=== PATIENT | female | born 1945 | race Caucasian/White ===

== ENCOUNTER 2017-03-20 19:28 | Inpatient (IN) | payer OTHER ==
[~2017-03-20] VITALS: Ht 165.1 cm; Wt 89.8 kg
[~2017-03-20 19:28] MED LIST: ASPIR 8181 MG PO; ASPIRIN EC81 M1 PO; AUGMENTIN 875-1 EACH PO; CLARITIN10 M1 PO; CLOPIDOGREL75 M1 PO; CLOPIDOGREL75 MG PO; DILTIAZEM 24HR120 MG PO; FERROUS SULFAT324 M1 PO; HUMALOG 100U100 U/ML; LANTUS SOLOS100 U/ML SC; LEVAQUIN500 M1 PO; LEVEMIR FL100 UNIT/1 SC; LISINOPRIL20 M1 PO; MAGNESIUM OXID400 MG PO; METOPROLOL SUCC50 MG PO; NATURE'S BLEND F1 MG PO; NOVOLOG FL100 UNIT/1 SC; PRAVASTATIN SOD80 MG PO; SERTRALINE HCL100 MG PO; SERTRALINE HYD100 MG PO; VENTOLIN HFA18 GM INH; VITAMIN B12500 MCG PO; VITAMIN D250000 UNIT PO; VITAMIN D50000 IU PO; XANAX0.5 M1 PO
--- NOTE | 2017-03-20 19:37 | ED NEURO DEFICIT/STROKE ---
History of Present Illness General Chief Complaint: Neuro Symptoms/ Deficit Stated Complaint: SLURRED SPEACHED Source: patient, old records, friend Exam Limitations: no limitations Allergies Coded Allergies: cat dander (DYSPNEA 11/12/16) crab (HIVES 10/24/16) Reconcile Medications Albuterol Sulfate (Ventolin Hfa) 90 MCG HFA.AER.AD 2 PUF INH Q4-6 PRN PRN dyspnea Alprazolam (Xanax) 0.5 MG TABLET 1 TAB PO BIDP PRN SHORTNESS OF BREATH Aspirin (Ecotrin*) 81 MG TABLET.DR 1 TAB PO DAILY HEART/BLOOD (Reported) Clopidogrel Bisulfate (Clopidogrel) 75 MG TABLET 1 TAB PO DAILY BLOOD THINNER (Reported) Diltiazem HCl (Diltiazem 24HR ER) 120 MG CAP.ER.24H 1 CAP PO DAILY HEART/BP ( Reported) Ergocalciferol (Vitamin D2) (Vitamin D2) 50,000 UNIT CAPSULE 1 CAP PO Q30D SUPPLEMENT (Reported) Insulin Aspart, Recombinant (Novolog Flexpen) 100 UNIT/ML INSULN.PEN DM ( Reported) Insulin Detemir (Levemir Flextouch) 100 UNIT/ML (3 ML) INSULN.PEN 40 UNITS SC QHS DM (Reported) Lisinopril 20 MG TABLET 1 TAB PO DAILY BP (Reported) Loratadine (Claritin) 10 MG TABLET 1 TAB PO DAILY ALLERGIES Sertraline HCl 100 MG TABLET 1 TAB PO DAILY MENTAL HEALTH (Reported) Triage Nurses Notes Reviewed? yes Onset: Abrupt Duration: day(s): (1), constant Timing: recent history Severity: moderate Vision Problem? No Glaucoma? No Baseline: alert, oriented x 3 Associated Symptoms: denies HPI: 71 year old female with history of Coronary artery disease, hypertension, hyperlipidemia, two strokes in 2009 and 2011 with no residual weakness, type 2 diabetes mellitus, depression, and migraines with benign point with all her medications for the past month secondary to monetary reasons presents with her friend who states since 10:00 this morning she has had slurred speech and is been acting confused lethargic. On arrival patient's blood sugar is 508. The patient offers no complaints she denies any arm or leg weakness no facial droop headache vision changes chest pain shortness of breath abdominal pain nausea vomiting diarrhea. (Rex TONEY,Bebeto) Vital Signs & Intake/Output Vital Signs & Intake/Output Vital Signs Date Time Temp Pulse Resp B/P B/P Pulse O2 O2 Flow FiO2 Mean Ox Delivery Rate 03/20 2211 96.8 79 18 133/62 98 Room Air 03/20 2105 74 139/69 03/20 2030 74 142/67 03/20 2011 76 191/96 03/20 1939 95.2 84 20 191/96 95 Room Air ED Intake and Output 03/21 0000 03/20 1200 Intake Total Output Total Balance Patient 195 lb Weight Weight Reported by Patient Measurement Method (Eda MOSLEY,Vijay Ayers) Past History Medical History Any Pertinent Medical History? see below for history Neurological: CVA Cardiovascular: hyperlipidemia Endocrine: diabetes History of MRSA: No History of VRE: No History of CDIFF: No Tetanus Vaccine: 02/12/15 Surgical History Surgical History: non-contributory Psychosocial History Who do you live with Spouse Services at Home None What is your primary language Khmer Family History Family History, If Any: SISTER FHx: diabetes mellitus BROTHER FH: heart disease Relation not specified for: Adopted Hx Contributory? No (Bebeto Berkowitz) Review of Systems Review of Systems Constitutional: Reports: see HPI. Comments Review of systems: See HPI, All other systems negative. Constitutional, no chills no fever, HEENT: no sore throat no congestion Cardiovascular: No chest pain , Skin: no rashes, no change in skin Respiratory: No dyspnea no cough GI: No nausea no vomiting, no diarrhea : No dysuria Muscle skeletal: No joint pain, no back pain Neurologic: , no headache Heme/endocrine: No bruising Immunology: No lymphadenopathy (Bebeto Berkowitz) Physical Exam Physical Exam General Appearance: well developed/nourished, alert, awake Cranial Nerves: normal hearing, normal speech, PERRL Comments: Well-developed well-nourished person in no acute distress HEENT: Normal EENT exam; PERRL, EOMI, no nystagmus. HEAD is atraumatic. moist mucous membranes. Neck: Supple, normal range of motion Back: Full range of motion Cardiovascular: Regular rate and rhythms no murmurs rubs Respiratory: Chest nontender.There were no bony deformities, no asymmetry. No respiratory distress. Patient speaking in full complete sentences. Breath sounds clear to auscultation bilaterally: NO W/R/R Abdomen: Soft, nontender nondistended, no appreciable organomegaly. Normal bowel sounds. No rebound/guarding, Extremity: No edema, full range of motion of extremities Neuro: Alert oriented x3, motor sensory normal, cranial nerves II through XII grossly intact. There were no obvious focal neurologic abnormalities. Skin: No appreciable rash on exposed skin, skin is warm and dry. Psych: Mood and affect is normal, memory and judgment is normal. Core Measures CVA/TIA Diagnosis: No Sepsis Present: No Sepsis Focused Exam Completed? No (Rex TONEY,Bebeto) Progress Differential Diagnosis: electrolyte imbalance, intracranial Hem., intracranial mass/tumor, stroke, subarachnoid Hem., vertebrobasilar insuff., hhs, dka, jay, dehydration Diagnostic Imaging: Viewed by Me: Radiology Read, CT Scan. Discussed w/RAD: Radiology Read, CT Scan. Radiology Impression: PATIENT: JOSE BROWN PRESENT AGE: 71 PATIENT ACCOUNT NO: [id number] : 46 LOCATION: [facility] ORDERING PHYSICIAN: Bebeto TONEY SERVICE DATE: 03/20/17 EXAM TYPE: RAD - XRY- PORTABLE CHEST XRAY EXAMINATION: XR PORTABLE CHEST CLINICAL INFORMATION: Altered mental status slurred speech. COMPARISON: Chest October 2016 TECHNIQUE: Portable frontal view of the chest was obtained. FINDINGS: No significant abnormality is noted involving the heart, lungs, mediastinum, bony thorax or soft tissues. IMPRESSION: Unremarkable examination. DICTATED BY: Bryan Barnett MD DATE/TIME DICTATED:03/20/172022 [employer]ATE [employer] PROGRAM COORDINATOR:PAVEL DATE/TIME TRANSCRIBED:03/20/172022 CONFIDENTIAL, DO NOT COPY WITHOUT APPROPRIATE AUTHORIZATION. <Electronically signed in Other Vendor System> SIGNED BY: Bryan Barnett MD 03/20/172026, PATIENT: JOSE BROWN PRESENT AGE: 71 PATIENT ACCOUNT NO: [id number] : 46 LOCATION: ER ORDERING PHYSICIAN: Bebeto TONEY SERVICE DATE: 03/20/17 EXAM TYPE: CAT - CT HEAD WO IV CONTRAST EXAMINATION: CT HEAD WITHOUT CONTRAST CLINICAL INFORMATION: Slurred speech. Rule out intracranial hemorrhage. COMPARISON: CT head 02/12/2015. TECHNIQUE: Contiguous axial imaging was performed from the skull base to vertex without intravenous administration of contrast. DLP: 616 mGy-cm FINDINGS: Moderate diffuse commensurate prominence of ventricles and sulci is noted. Moderate supratentorial patchy periventricular and subcortical white matter hypodensities are visualized. Moderate patchy hypodensity is present in the ventral monico. Focal patchy hypodensity is present in the posterior limb of left internal capsule and posterior left lentiform nucleus. Overall, these regions are most suspicious for chronic small vessel ischemic changes. No intracranial hemorrhage, acute infarcts or tumors are visualized. Segmental vascular calcifications of the cavernous portions of the internal carotid arteries are visualized. Bilateral ocular lens extractions are noted. No significant opacification of the visualized paranasal sinuses, mastoid air cells or middle ear cavities is demonstrated. IMPRESSION: 1. No acute abnormalities identified. No intracranial hemorrhage. 2. Moderate-marked white matter chronic small vessel ischemic changes grossly stable compared with 02/04/2015. DICTATED BY: Óscar Acharya MD DATE/TIME DICTATED:03/20/172033 [employer]PORATE [employer] PROGRAM COORDINATOR: PAVEL DATE/TIME TRANSCRIBED:03/20/172033 CONFIDENTIAL, DO NOT COPY WITHOUT APPROPRIATE AUTHORIZATION. <Electronically signed in Other Vendor System> SIGNED BY: Óscar Acharya MD 03/20/172039 Initial ED EKG: nsr at 80, lad, no acute st seg chagnes, normal axis Prior EKG: unchanged (10/2016) (Bebeto Berkowitz) Plan of Care: Orders Procedure Date/time Status Nothing by Mouth 03/21 B Active TROPONIN LEVEL 03/21 1000 Active EKG 03/21 1000 Active MAGNESIUM 03/21 0600 Active BASIC ELECTROLYTES PLUS BUN&CR 03/21 0600 Active CBC WITHOUT DIFFERENTIAL 03/21 0500 Active TROPONIN LEVEL 03/21 0300 Active EKG 03/21 0300 Active SWALLOW EVALUATION 03/21 0019 Active PT Evaluate & Treat 03/21 18 Active Saline Lock 03/21 18 Active Pathway - chart 03/21 18 Active House Staff 03/21 18 Active BLOOD CULTURE 03/21 18 Active Code Status 03/21 18 Active Pathway - chart 03/21 UNK Active Lab Add-on Test 03/21 UNK Active VTE Mechanical Prophylaxis 03/21 UNK Active Vital Signs 03/21 UNK Active Precautions 03/21 UNK Active Intake & Output 03/21 UNK Active Hemoccult 03/21 UNK Active FingerStick- Glucose 03/21 UNK Active Activity/Ambulation 03/21 UNK Active MRI-HEAD W/O MAYLIN 03/21 UNK Active Patient Data 03/20 2350 Active BASIC ELECTROLYTES PLUS BUN&CR 03/20 2315 Complete Patient Data 03/20 2229 Active Admit to inpatient 03/20 2228 Active Add-on Test (ER Only) 03/20 2202 Active SERUM OSMOLALITY 03/20 2000 Complete [place] Coma Scale 03/20 1941 Active NIH Stroke Scale 03/20 194 Active Intake & Output 03/20 194 Active FingerStick- Glucose 03/20 1940 Active MIXED VENOUS BLOOD GAS (GEN) 03/20 1937 Active Telemetry/Factorer 03/20 1937 Active TROPONIN LEVEL 03/20 1937 Complete PROTHROMBIN TIME 03/20 1937 Complete LACTIC ACID 03/20 1937 Complete COMPREHENSIVE METABOLIC PANEL 03/20 1937 Complete CBC WITHOUT DIFFERENTIAL 03/20 1937 Complete ACETONE 03/20 1937 Complete EKG 03/20 1937 Active Current Medications Sig/Huy Start time Last Medication Dose Stop Time Status Admin Acetaminophen 650 MG Q8P PRN 03/21 0030 UNVr (Tylenol) Oxycodone HCl 5 MG Q8P PRN 03/21 0030 AC (Roxicodone) Potassium Chloride 20 MEQ DAILY 03/20 2359 AC (KCl 20MEQ in D5W 1/ 2NS 1000ML) Dextrose/Sodium 1,000 ML Chloride (D5W-1/2 Normal Saline 1000ML) Atorvastatin Calcium 80 MG 1700 03/20 2345 UNVr (Lipitor) Insulin Aspart 0 Q4 03/20 2345 AC (NovoLOG) Insulin Detemir 5 UNITS BID 03/20 2345 AC (Levemir) Laboratory Tests 03/20/172319: Anion Gap 14, Estimated GFR 55 L, BUN/Creatinine Ratio 20.0 03/20/172237: Lactic Acid Cancelled 03/20/172000: Anion Gap 18 H, Estimated GFR 40 L, BUN/Creatinine Ratio 17.7, Glucose 484 H, Serum Osmolality 301 H, Lactic Acid 1.7, Calcium 9.2, Total Bilirubin 0.7, AST 13 L, ALT 28, Alkaline Phosphatase 88, Troponin I 0.10, Total Protein 7.3, Albumin 4.3, Globulin 3.0, Albumin/Globulin Ratio 1.4, PT 10.7, INR 1.02, CBC w Diff NO MAN DIFF REQ, RBC 4.54, MCV 82.8, MCH 27.8, MCHC 33.6, RDW 14.2, MPV 9.6 , Gran % 70.5, Lymphocytes % 21.8, Monocytes % 6.0, Eosinophils % 1.2, Basophils % 0.5, Absolute Granulocytes 5.5, Absolute Lymphocytes 1.7, Absolute Monocytes 0.5, Absolute Eosinophils 0.1, Absolute Basophils 0, Acetone Level POSITIVE AT 1 :2 DIL Microbiology 03/21 18 BLOOD: Blood Culture - ORD 03/21 18 BLOOD: Blood Culture - ORD 2199 was altered and she is hyperosmolar he advised to admit the patient to the ICU and started a insulin drip despite her blood sugar being 378 on repeat eval. Case discussed with Dr. Marquez spoke with Dr. Francis given the patient is (Bebeto Berkowitz) (Ead MOSLEY,Vijay Ayers) Departure Departure Time of Disposition: 2227 Disposition: STILL A PATIENT Condition: Stable Clinical Impression Primary Impression: Uncontrolled diabetes mellitus Secondary Impressions: Noncompliance with medication regimen Referrals: Lyudmila Butts (PCP/Family) Departure Forms: Customer Survey General Discharge Information Admission Note Spoke With: Amanda Martell MD Documentation of Exam: Documentation of any treatments & extenuating circumstances including Concerns Regarding Discharge (functional status, medication knowledge or non-compliance, living conditions, etc.) that warrant an admission rather than observation: ENDOCRINE CONSULT, POSSIBLE NEURO CONSULT, TREND LABS, TREND BLOOD SUGARS, TELE MONITORING, PREMATURE DISCHARGE WOULD BE MEDICALLY HARMFUL (Bebeto Berkowitz) PA/APPRENTICE Co-Sign Statement Statement: ED Attending supervision documentation- [X] I saw and evaluated the patient. I have also reviewed all the pertinent lab results and diagnostic results. I agree with the findings and the plan of care as documented in the PA's/APPRENTICE's documentation. Patient presents for evaluation of slurred speech, past history of CVA. Physical examination reveals no focal neurological deficits mildly slurred speech. No apparent aphasia. [] I have reviewed the ED Record and agree with the PA's/APPRENTICE's documentation. [] Additions or exceptions (if any) to the PAs/APPRENTICE's note and plan are summarized below: [] (Eda MOSLEY,Vijay Ayers) Critical Care Note Critical Care Note Critical Care Time: 30-74 min (Bebeto Berkowitz)
[2017-03-20 20:20] LABS: ABSOLUTE BASOPHIL COUNT 0 /CUMM (0.0-0.2); ABSOLUTE EOSINOPHIL COUNT 0.1 /CUMM (0.0-0.7); ABSOLUTE GRANULOCYTE CT 5.5 /CUMM (1.4-6.5); ABSOLUTE LYMPH COUNT 1.7 /CUMM (1.2-3.4); ABSOLUTE MONOCYTE COUNT 0.5 /CUMM (0.10-0.60); BASOPHIL % 0.5 % (0.0-2.0); EOSINOPHIL % 1.2 % (0-5); GRANULOCYTE % 70.5 % (42.2-75.2); HEMATOCRIT 37.6 % (37-47); MEAN CORPUSCULAR HGB 27.8 PG (27.0-31.0); MEAN CORPUSCULAR HGB CONC 33.6 G/DL (33.0-37.0); MEAN CORPUSCULAR VOLUME 82.8 FL (81.0-99.0); MEAN PLATELET VOLUME 9.6 FL (7.4-10.4); PLATELET COUNT 223 /CUMM (130-400); RBC DISTRIBUTION WIDTH 14.2 % (11.5-14.5); RED BLOOD CELL CT 4.54 /CUMM (4.20-5.40); WHITE BLOOD CELL COUNT 7.8 /CUMM (4.8-10.8)
--- NOTE | 2017-03-20 20:27 | RADIOLOGY REPORT ---
EXAMINATION: XR PORTABLE CHEST CLINICAL INFORMATION: Altered mental status slurred speech. COMPARISON: Chest October 2016 TECHNIQUE: Portable frontal view of the chest was obtained. FINDINGS: No significant abnormality is noted involving the heart, lungs, mediastinum, bony thorax or soft tissues. IMPRESSION: Unremarkable examination.
[2017-03-20 20:29] LABS: PT 10.7 SEC (9.4-12.5)
--- NOTE | 2017-03-20 20:40 | CT SCAN REPORT ---
EXAMINATION: CT HEAD WITHOUT CONTRAST CLINICAL INFORMATION: Slurred speech. Rule out intracranial hemorrhage. COMPARISON: CT head 02/12/2015. TECHNIQUE: Contiguous axial imaging was performed from the skull base to vertex without intravenous administration of contrast. DLP: 616 mGy-cm FINDINGS: Moderate diffuse commensurate prominence of ventricles and sulci is noted. Moderate supratentorial patchy periventricular and subcortical white matter hypodensities are visualized. Moderate patchy hypodensity is present in the ventral monico. Focal patchy hypodensity is present in the posterior limb of left internal capsule and posterior left lentiform nucleus. Overall, these regions are most suspicious for chronic small vessel ischemic changes. No intracranial hemorrhage, acute infarcts or tumors are visualized. Segmental vascular calcifications of the cavernous portions of the internal carotid arteries are visualized. Bilateral ocular lens extractions are noted. No significant opacification of the visualized paranasal sinuses, mastoid air cells or middle ear cavities is demonstrated. IMPRESSION: 1. No acute abnormalities identified. No intracranial hemorrhage. 2. Moderate-marked white matter chronic small vessel ischemic changes grossly stable compared with 02/04/2015.
--- NOTE | 2017-03-20 23:09 | History & Physical ---
Sapna Guthrie 03/20/17 6298: General Information and HPI MD Statement: I have seen and personally examined JOSE ABRAHAM and documented this H&P. The patient is a 71 year old F who presented with a patient stated chief complaint of []. Source of Information: patient, old records, EMS Exam Limitations: no limitations History of Present Illness: Ms Jarad is a 71 year old woman w/ a PMHx of CAD (cardiac cath 2010 showing 60% stenosis of the LAD, no PCI/ CABG) , HTN, CVA in 2009 ( left thalamic infarct), T2DM ( non-compliant with her meds), CKD, Depression was brought in when she was found to have slurring of speech approximately 7-8 hrs prior to the presentation to the ER. She was known to be in her usual state of health until the am of admission, and she noticed that she had slurring of speech and difficulty finding words that began at noon. She was told by her relative that she " sounds funny " ; she did not have any other symptoms at that time- no other neurological symptoms such as headache, facial droop, weakness of upper or lower extremities, paresthesias, difficulty swallowing, loss of bladder or bowel function, loss of vision, loss of consciousness, altered mentation, loss of short or intermediate memory. No tremors, ataxia, vertigo, dizziness. She did not have any neck pain, any s/o infection- cough, dysuria. She complains of vague abdominal discomfort that is chronic, no acute changes in bowel function, no nausea vomiting or diarrhea. No pedal edema. No chest pain, palpitations, or shortness of breath. No echymoses. She has not taken her insulin in the last one week, due to financial difficulties. Doesnt see any spindle plumber or an direct marketing specialist. She used to see , and currently doesnt have a good f/u with any PCP. Allergies/Medications Allergies: Coded Allergies: cat dander (DYSPNEA 11/12/16) crab (HIVES 10/24/16) Home Med list Albuterol Sulfate (Ventolin Hfa) 90 MCG HFA.AER.AD 2 PUF INH Q4-6 PRN PRN dyspnea Alprazolam (Xanax) 0.5 MG TABLET 1 TAB PO BIDP PRN SHORTNESS OF BREATH Aspirin (Ecotrin*) 81 MG TABLET.DR 1 TAB PO DAILY HEART/BLOOD (Reported) Clopidogrel Bisulfate (Clopidogrel) 75 MG TABLET 1 TAB PO DAILY BLOOD THINNER (Reported) Diltiazem HCl (Diltiazem 24HR ER) 120 MG CAP.ER.24H 1 CAP PO DAILY HEART/BP ( Reported) Ergocalciferol (Vitamin D2) (Vitamin D2) 50,000 UNIT CAPSULE 1 CAP PO Q30D SUPPLEMENT (Reported) Insulin Aspart, Recombinant (Novolog Flexpen) 100 UNIT/ML INSULN.PEN DM ( Reported) Insulin Detemir (Levemir Flextouch) 100 UNIT/ML (3 ML) INSULN.PEN 40 UNITS SC QHS DM (Reported) Lisinopril 20 MG TABLET 1 TAB PO DAILY BP (Reported) Loratadine (Claritin) 10 MG TABLET 1 TAB PO DAILY ALLERGIES Sertraline HCl 100 MG TABLET 1 TAB PO DAILY MENTAL HEALTH (Reported) Compliance With Home Meds: POOR Past History Travel History Traveled to [place] past 21 day No Medical History Neurological: CVA EENT: NONE Cardiovascular: hypertension, hyperlipidemia Respiratory: NONE Gastrointestinal: Crohn's disease Hepatic: NONE Renal: NONE Musculoskeletal: NONE Psychiatric: depression Endocrine: diabetes Blood Disorders: NONE Cancer(s): NONE OFFICE COORDINATOR/Reproductive: NONE History of MRSA: No History of VRE: No History of CDIFF: No Tetanus Vaccine: 02/12/15 Surgical History Surgical History: non-contributory Past Family/Social History Family History Relations & Conditions if any SISTER FHx: diabetes mellitus BROTHER FH: heart disease Relation not specified for: Adopted Psychosocial History Services at Home: None ETOH Use: denies use Illicit Drug Use: denies illicit drug use Functional Ability ADLs Independent: dressing, eating, toileting, bathing. Ambulation: independent IADLs Unknown: shopping, housework, finances, food prep, telephone, transportation, medication admin. Review of Systems Review of Systems Constitutional: Denies: see HPI, fever. EENTM: Denies: blurred vision, double vision, visual changes, hearing changes. Cardiovascular: Denies: chest pain. Respiratory: Denies: cough, short of breath. GI: Reports: abdominal pain. Denies: diarrhea, nausea, bloody stool. Genitourinary: Denies: dysuria. Musculoskeletal: Denies: joint pain. Skin: Denies: change in skin color. Neurological/Psychological: Reports: other (slurring of speech). Denies: ataxia, cognitive dysfunction, confusion, dementia, emotional problems, headache, numbness, paresthesia, pre- existing deficit, petit mal seizures, tingling, tremors, tonic-clonic seizures, unable to move lower ext, unable to move upper ext, weakness. Hematologic/Endocrine: Denies: bruising. Exam & Diagnostic Data Last 24 Hrs of Vital Signs/I&O Vital Signs Date Time Temp Pulse Resp B/P B/P Pulse O2 O2 Flow FiO2 Mean Ox Delivery Rate 03/21 0035 97.9 79 18 158/84 97 Room Air 03/20 2211 96.8 79 18 133/62 98 Room Air 03/20 2105 74 139/69 03/20 2030 74 142/67 03/20 2011 76 191/96 03/20 1939 95.2 84 20 191/96 95 Room Air Intake & Output 03/21 0800 03/21 0000 03/20 1600 Intake Total 2000 Output Total 600 Balance 1400 Intake, IV 2000 Output, Urine 600 Patient 198 lb 195 lb Weight Weight Reported by Patient Reported by Patient Measurement Method Physical Exam General Appearance Alert, Oriented X3, Cooperative, No Acute Distress Skin No Breakdown, No Significant Lesion, circular skin rashes s/o target signs on the upper extremities Skin Temp/Moisture Exam: Warm/Dry Sepsis Skin Exam (color): Normal for Ethnicity HEENT Atraumatic, PERRLA, EOMI, Mucous Membr. moist/pink Neck Supple, No JVD, No thryomegaly, +2 Carotid Pulse wo Bruit, No LAD Lymphatic Axillary nl, Cervical nl Cardiovascular Regular Rate, Normal S1, Normal S2, No Murmurs, Gallops Lungs Normal Air Movement Abdomen Normal Bowel Sounds, Soft, No Tenderness, No Hepatospenomegaly, No Masses Neurological Strength at 5/5 X4 Ext, Normal Tone, Sensation Intact, Cranial Nerves 3-12 NL, Reflexes 2+, gait couldnt be tested. , dysarthria + no tremors finger nose test - negative. knee mercado test- negative. short term memonry intact., No nystagmus Extremities No Clubbing, No Cyanosis, No Edema, Normal Pulses, No Tenderness/ Swelling Vascular Pulses Symmetrical Sepsis Peripheral Pulse Location: Dorsalis Pedis Sepsis Peripheral Pulse Exam: Normal Sepsis Cap Refill Exam: <2 Sec Body Front and Back (Adult) 1) rash on the upper extrmity Last 24 Hrs of Labs/[place]: Laboratory Tests 03/21/17 0033: Urinalysis LIGHT H, Urine Color YEL, Urine Clarity HAZY H, Urine pH 6.0, Ur Specific [place] 1.010, Urine Protein NEG, Urine Ketones NEG, Urine Nitrite NEG, Urine Bilirubin NEG, Urine Urobilinogen 0.2, Ur Leukocyte Esterase SMALL H, Ur Microscopic SEDIMENT EXAMINED, Urine RBC RARE, Urine WBC 25-50 H, Ur Epithelial Cells MANY H, Urine Bacteria FEW H, Urine Hemoglobin TRACE-INTACT, Urine Glucose >=1000 H 03/20/17 2320: Anion Gap 14, Estimated GFR 55 L, BUN/Creatinine Ratio 20.0, Glucose 276 H 03/20/17 2238: Lactic Acid Cancelled 03/20/172000: Anion Gap 18 H, Estimated GFR 40 L, BUN/Creatinine Ratio 17.7, Glucose 484 H, Serum Osmolality 301 H, Lactic Acid 1.7, Calcium 9.2, Total Bilirubin 0.7, AST 13 L, ALT 28, Alkaline Phosphatase 88, Troponin I 0.10, Total Protein 7.3, Albumin 4.3, Globulin 3.0, Albumin/Globulin Ratio 1.4, PT 10.7, INR 1.02, CBC w Diff NO MAN DIFF REQ, RBC 4.54, MCV 82.8, MCH 27.8, MCHC 33.6, RDW 14.2, MPV 9.6 , Gran % 70.5, Lymphocytes % 21.8, Monocytes % 6.0, Eosinophils % 1.2, Basophils % 0.5, Absolute Granulocytes 5.5, Absolute Lymphocytes 1.7, Absolute Monocytes 0.5, Absolute Eosinophils 0.1, Absolute Basophils 0, Acetone Level POSITIVE AT 1 :2 DIL Microbiology 03/21 118 BLOOD: Blood Culture - RECD 03/21 104 BLOOD: Blood Culture - RECD Diagnostic Data EKG Results NSR LAFB LAD QTc 474 CXR Results No significant abnormality is noted involving the heart, lungs, mediastinum, bony thorax or soft tissues. Other Results CT head: Moderate diffuse commensurate prominence of ventricles and sulci is noted. Moderate supratentorial patchy periventricular and subcortical white matter hypodensities are visualized. Moderate patchy hypodensity is present in the ventral monico. Focal patchy hypodensity is present in the posterior limb of left internal capsule and posterior left lentiform nucleus. Overall, these regions are most suspicious for chronic small vessel ischemic changes. No intracranial hemorrhage, acute infarcts or tumors are visualized. Segmental vascular calcifications of the cavernous portions of the internal carotid arteries are visualized. Bilateral ocular lens extractions are noted. No significant opacification of the visualized paranasal sinuses, mastoid air cells or middle ear cavities is demonstrated. Assessment/Plan Assessment: Ms Abraham is a 71 year old woman w/ a PMHx of CAD (cardiac cath 2010 showing 60% stenosis of the LAD, no PCI/ CABG) , HTN, CVA in 2009, T2DM ( non-compliant with her meds), Depression was brought in when she was found to have slurring of speech approximately 7-8 hrs prior to the presentation to the ER likely secondary to CVA. At the time of presentatin, vitlals temp 95.2 ( unsure if the number was accurate), NC 84, RR 20,BP 191/96 which dropped to 139/69, 95 RA. Pertinent lab findings: wbc 7.8 Hb 12.6, HCT 37.6, platelets 223 Na 132 ( corrected sodium ~ 139 ), K 4.0, HCO3 25, AG 18, Glucose 480, LA 1.7 BUN 23, Sr Cr 1.3 Trop 0.01, Osm 296. CT head did not reveal any acute changes. Last Echocardiogram 2013: EF 60%, RV pressure 40. Previous cath results: 01/31/2011, showed a 60% stenosis of the LAD with severe diffuse disease of the first and second diagonal branches. There was also severe diffuse disease of the distal LAD. It was a dominant left circumflex vessel with severe diffuse disease of the second obtuse marginal as well as severe diffuse disease of the distal left circumflex artery. The RCA was small and normal in angiographic appearance. There was failure of a successful deployment of an Angio-Seal device during that cardiac catheterization. Etiology in her case for dysarthria that began 7-8 hrs prior to presenation to the ED was likely a CVA, since she did not have any resolution of symptoms so far. She is currently out of the tPA window, and also had a history of CVA in the past. In her case, either embolic or a thrombotic causes are likely, and hence an echocardiogram, and carotid dopplers have been ordered. She should be monitored on telemetry to look for any arrythmias. Sometimes, HHS is known to cause neurological symptoms, which is a possibility, but stroke or TIA ( 24 hrs resolution) seem more likely. She doesnt have any vertigo, cerebellar signs s/o of posterior circulatory defect, but considering dysarthria vertebrobasilar defect is more likely for which she should get an MRI in the am. Since she has CKD, CTA was not done. CVA might have caused the HHS, or continue to look for infection- check urinalyssis, and blood culture. Plan: 1. CVA- Since she is out of tPA tx window, she was given ASA and statin after she passed bedside swallow eval. She is to remain NPO pending formal swallow evaluation. She should get neurochecks, and have fall precautions. PT, OT and swallow eval in the am. Neurology evaluation. Echocardioram, Carotid dopplers, and MRI in the am. Permissive hypertension. Continue aspirn, plavix and high intensity statin daily. Check serial electrocardigram, and cardiac enzymes. Check lipid panel. 2. HHS- She had elevated glucose, slighly higher osm, and dehydration. She was given 2L NS, and was started on D5 1/2 NS at 125 ml/hr with potassium supplemenation. Replenish K to make sure that the pt is not hypokalmic. Levemir 5 U bid, and start novolog sliding scale q4h. NPO for now. Check BEP after [address] Francis contacted. There is an entity of hypercoagulability in HHS, which should be considered, but she cant get full dose AC until she gets an MRI. Check HbA1c. 3. Hypertension- Hold antihypertensives for now. Permissive HTN for now. Please dont treat hypertension aggressively, and not lower more than 20% in the first 24 hrs. Housekeepin. DVT PPx- Heparin sc 2. Full code 3. Diet NPO 4 Swallow eval- bedside done pass 5. Consults- Neurology, Cardiology(consider) and Endocrinology. As Ranked By This Provider Problem List: 1. Uncontrolled diabetes mellitus 2. Hyperglycemia Core Measures/Misc (11/02) Acute Coronary Syndrome ACS Diagnosis: No Congestive Heart Failure Congestive Heart Failure Diagnosis No Cerebrovascular Accident CVA/TIA Diagnosis: Yes NIH Stroke Scale: Total 1 Date Last Known Well: 03/20/17 Time Last Known Well: 1200 Symptom Start Date: 03/20/17 Symptom Start Time: 1200 Reason tPA not ordered Medical Contraindication Swallow Evaluation Pass Current/Past Hx AFib/AFlutter No VTE (View Protocol) VTE Risk Factors Acute Medical Illness No Mechanical VTE Prophylaxis d/t N/A MechProphylax Ordered No VTE Pharm Prophylaxis d/t NA PharmProphylax ordered Sepsis (View protocol) Sepsis Present: No Amanda Martell 03/21/17 0600: Attending MD Review Statement Attending Statement Attending MD Statement: examined this patient, discuss w/resident/PA/INTEGRITY CONSULTANT, agreed w/resident/PA/INTEGRITY CONSULTANT, reviewed EMR data (avail), reviewed images, amended to note Attending Assessment/Plan: CC: Slurred speech PMH: ?CAD, HTN, CVA, DM, Depression, migraine, celiac disease Patient came to ER for slurred speech. She noticed it around noon today she called EMS. In the Route her blood pressure was 210/100 and blood glucose was 508. Patient cannot articulate words. She did not notice any other weakness, facial drooping, fall, loss of consciousness, seizure-like activity. She was worried about the stroke so she called EMS. She also has some vague abdominal pain, relates that to her celiac disease. Patient has been noncompliant with her medications since last few months, probably secondary to cost. She did not take any insulin or antihypertensives in a while. Vitals: Afebrile, pulse in 80s, RR 20, blood pressure 191/96, saturating 95% on room air On exam: A O 3, cooperative, no acute distress, neck supple, JVD normal, no lymphadenopathy, mucosa moist, dysarthria, cranial nerve intact, strength 5/5 in all extremity muscle groups, no cerebellar signs, no sensational deficit, no dependent edema, no obvious skin rashes or inflammation CVS: S1-S2, RRR. RS: Clear to auscultate bilaterally. Abdomen: Soft, NT, ND, bowel sounds present. Labs: CBC unremarkable, sodium 137, potassium 4.0, chloride 89, bicarbonate 25, BUN 23, creatinine 1.3, glucose 484, calcium 9.2, anion gap 18, LFT unremarkable , serum osmolality 301, lactate 1.7, troponin 0.10, INR 1.02, acetone positive in 1:2 UA: Small leukocyte esterase, 25-[address] head: 1. No acute abnormalities identified. No intracranial hemorrhage. 2. Moderate-marked white matter chronic small vessel ischemic changes grossly stable compared with 02/04/2015. CXR:Unremarkable examination. Assessment and plan 71-year-old female with multiple comorbidities as mentioned above presented in ER for difficulty speaking, slurred speech. Patient cannot articulate word, symptoms first noted at noon time, patient was seen in ER at 7.28 for the first time, patient has slurry speech, dysarthria but no other neurological deficit on examination. She significant hyperglycemic with mild anion gap and acetone positive. Significantly hypertensive on arrival, troponin 0.10, no acute ECG changes. Slurred speech could be secondary to extreme dehydration with this persistent hyperglycemia, or secondary to hyperosmolality state, or as a manifestation of CVA. Given persistent symptoms even with blood sugar control and aggressive hydration, it appears more like CVA. Neurology was not called from ER. Patient is out of window for TPA. Given her elevated creatinine CTA head and neck could not be obtained. Endocrine was called to discuss management of hyperglycemia in the setting of mild anion gap and stone positive, initially there was a consideration to admitted in ICU but patient's blood sugar responded very quickly to insulin, thus admitted to telemetry. + Suspected CVA + Uncontrolled diabetes with significant hyperglycemia: HHS, mild anion gap acidosis + Noncompliance + Accelerated hypertension + Vague abdominal pain: Exam unremarkable, unclear etiology probably + History of questionable CAD, HTN, HLD, CVA, DM, depression, migraine - Admit to telemetry - Continuous telemetry monitoring - Serial troponin and EKG - If creatinine improves on next BMP obtain CTA head and neck - MRI brain - Continue permissive hypertension, do not start antihypertensives now - Swallow evaluation - Neurochecks - 2-D echocardiogram in a.m. - DVT prophylaxis - Obtain lipid profile - Continue aspirin and statin - Neurologic consult - Serial neuro checks - Carotid Dopplers - Adequate pain control - Continue basal and sliding scale insulin as suggested by direct marketing specialist - OT PT evaluation
[2017-03-21 02:00] VITALS: BP 110/74
[2017-03-21 06:00] VITALS: BP 118/68
--- NOTE | 2017-03-21 06:01 | Admission Certification ---
Admission Certification Certification Statement - As attending physician, I certify that at the time of - admission, based on clinical presentation, severity of - symptoms, need for further diagnostic testing and - therapeutic interventions, and risk of adverse outcomes - without in-hospital treatment, in my clinical assessment, - this patient requires an acute hospital stay for a minimum - of two nights or longer. I have also considered psychsocial - factors such as support system, advanced age, financial - issues, cognitive issues, and failed out-patient treatments, - past re-admission history, safety of patient, and lack of - compliance as applicable. Specific rationale supporting this admission is: suspected CVA, uncontrolled diabetes with HHS, noncompliance
[2017-03-21 08:44] LABS: ABSOLUTE BASOPHIL COUNT 0 /CUMM (0.0-0.2); ABSOLUTE EOSINOPHIL COUNT 0.1 /CUMM (0.0-0.7); ABSOLUTE GRANULOCYTE CT 6.2 /CUMM (1.4-6.5); ABSOLUTE LYMPH COUNT 2.2 /CUMM (1.2-3.4); ABSOLUTE MONOCYTE COUNT 0.6 /CUMM (0.10-0.60); BASOPHIL % 0.4 % (0.0-2.0); EOSINOPHIL % 1.5 % (0-5); GRANULOCYTE % 67.9 % (42.2-75.2); MEAN CORPUSCULAR HGB 28.7 PG (27.0-31.0); MEAN CORPUSCULAR HGB CONC 34.5 G/DL (33.0-37.0); MEAN CORPUSCULAR VOLUME 83.3 FL (81.0-99.0); MEAN PLATELET VOLUME 10.1 FL (7.4-10.4); PLATELET COUNT 188 /CUMM (130-400); RBC DISTRIBUTION WIDTH 14.8 % (11.5-14.5); RED BLOOD CELL CT 3.72 /CUMM (4.20-5.40); WHITE BLOOD CELL COUNT 9.2 /CUMM (4.8-10.8)
--- NOTE | 2017-03-21 09:06 | PN- Housestaff ---
Tg MOSLEY,Vega 03/21/17 0906: Subjective Follow-up For: Hyperosmolar state, altered mental status, slurred speech. Complaints: no complaints Tele-Events Since Last Visit: Sinus rhythm, hr 73-78. Subjective: I followed up and examined the patient today. Compared to the signout and history I received, patient seems to be improving much drastically. Her blood glucose levels have come down and we are following endocrinology recommendations for that. CAT scan of the head has been negative. Review of Systems Constitutional: Reports: no symptoms. Objective Last 24 Hrs of Vital Signs/I&O Vital Signs Date Time Temp Pulse Resp B/P B/P Pulse O2 O2 Flow FiO2 Mean Ox Delivery Rate 03/21 1441 97.3 79 20 108/60 97 Room Air 03/21 0600 98.0 73 20 118/68 95 / 0200 97.6 77 20 110/74 96 Room Air 03/21 0035 97.9 79 18 158/84 97 Room Air 03/20 2211 96.8 79 18 133/62 98 Room Air 03/20 2105 74 139/69 Intake & Output 03/21 1600 / 0800 03/21 0000 Intake Total 1400 2750 Output Total 700 600 Balance 700 2150 Intake, IV 1000 2750 Intake, Oral 400 0 Output, Urine 700 600 Patient 89.811 kg 88.451 kg Weight Weight Reported by Patient Reported by Patient Measurement Method Physical Exam General Appearance: Alert, Oriented X3, Cooperative, No Acute Distress Other Physical Findings: gen- alert, oriented x3, not in distress neuroGrossly intact CVSS1-S2 no murmur heard Respiration- bilateral lung callahan clear Abdomen- soft, nontender Current Medications: Current Medications Sig/Huy Start time Last Medication Dose Route Stop Time Status Admin Acetaminophen 650 MG Q8P PRN 03/21 0030 AC PO Albuterol Sulfate 2 PUF Q4-6 PRN PRN 03/21 0030 AC INH Aspirin 0 .STK-MED ONE 03/21 0037 DC PO Aspirin 325 MG ONCE ONE 03/20 2345 DC 03/21 PO 03/20 2346 0051 Aspirin Buffered 81 MG DAILY 03/21 1000 AC 03/21 PO 0920 Atorvastatin Calcium 80 MG 1700 03/22 1700 CAN PO Atorvastatin Calcium 80 MG 1700 03/21 1700 DC PO Atorvastatin Calcium 80 MG 1700 03/21 1700 DC PO Atorvastatin Calcium 40 MG 1700 03/21 1700 AC 03/21 PO 1716 Atorvastatin Calcium 80 MG 1700 03/21 0100 DC 03/21 PO 0052 Calcium Carbonate 500 MG ONCE ONE 03/21 0515 DC / PO 03/21 0516 0508 Clopidogrel Bisulfate 75 MG DAILY 03/21 1000 AC 03/21 PO 0920 Heparin Sodium 5,000 UNIT Q8 03/21 0600 AC 03/21 (Porcine) SC 1317 Insulin Aspart 0 AT BEDTIME 03/21 2200 AC SC Insulin Aspart 0 TIDAC/HS 03/21 1700 DC 03/21 SC 1508 Insulin Aspart 0 TIDAC 03/21 1700 AC 03/21 SC 1717 Insulin Aspart 7 UNITS .STK-MED ONE 03/21 0232 DC VT 03/21 0233 Insulin Aspart 0 Q4 03/20 2345 ND 03/21 SC 1051 Insulin Detemir 10 UNITS BID 03/21 2200 AC SC Insulin Detemir 5 UNITS BID 03/20 2345 ND 03/21 SC 0921 Insulin Human Regular 6 UNITS ONCE ONE 03/20 2215 DC 03/20 IV 03/20 2216 2218 Melatonin 5 MG AT BEDTIME 03/21 0030 AC 03/21 PO 0051 Oxycodone HCl 5 MG Q8P PRN 03/21 0030 AC PO Potassium Chloride 10 MEQ Q1H 03/21 0330 DC 03/21 IV 03/21 0431 0508 Potassium Chloride 20 MEQ DAILY 03/20 2359 DC 03/21 Dextrose/Sodium 1,000 ML IV 1144 Chloride Sodium Chloride 1,000 ML BOLUS ONE 03/20 2130 DC 03/20 IV 03/20 2229 2313 Sodium Chloride 1,000 ML BOLUS ONE 03/20 2130 DC 03/20 IV 03/20 2229 2124 Last 24 Hrs of Lab/Hayden Results Last 24 Hrs of Labs/Mics: Laboratory Tests 03/21/17 1035: Troponin I 0.07 03/21/17 0620: Anion Gap 11, Estimated GFR 49 L, BUN/Creatinine Ratio 16.4, Magnesium 1.4 L, Triglycerides 199 H, Cholesterol 184, LDL Cholesterol, Calc 104, HDL Cholesterol 41, Cholesterol/HDL Ratio 4, CBC w Diff NO MAN DIFF REQ, RBC 3.72 L , MCV 83.3, MCH 28.7, MCHC 34.5, RDW 14.8 H, MPV 10.1, Gran % 67.9, Lymphocytes % 23.7, Monocytes % 6.5, Eosinophils % 1.5, Basophils % 0.4, Absolute Granulocytes 6.2, Absolute Lymphocytes 2.2, Absolute Monocytes 0.6, Absolute Eosinophils 0.1, Absolute Basophils 0 03/21/17 0240: Troponin I 0.08 03/21/17 0033: Urinalysis LIGHT H, Urine Color YEL, Urine Clarity HAZY H, Urine pH 6.0, Ur Specific Knox 1.010, Urine Protein NEG, Urine Ketones NEG, Urine Nitrite NEG, Urine Bilirubin NEG, Urine Urobilinogen 0.2, Ur Leukocyte Esterase SMALL H, Ur Microscopic SEDIMENT EXAMINED, Urine RBC RARE, Urine WBC 25-50 H, Ur Epithelial Cells MANY H, Urine Bacteria FEW H, Urine Hemoglobin TRACE-INTACT, Urine Glucose >=1000 H 03/20/17 2320: Anion Gap 14, Estimated GFR 55 L, BUN/Creatinine Ratio 20.0, Glucose 276 H 03/20/17 2238: Lactic Acid Cancelled Microbiology 03/21 0119 BLOOD: Blood Culture - RECD 03/21 0105 BLOOD: Blood Culture - RECD Assessment/Plan Assessment: Ms Abraham is a 71 year old woman w/ a PMHx of CAD (cardiac cath 2010 showing 60% stenosis of the LAD, no PCI/ CABG) , HTN, CVA in 2009, T2DM ( non-compliant with her meds), Depression was brought in when she was found to have slurring of speech approximately 7-8 hrs prior to the presentation to the ER likely secondary to CVA. #Hyperosmolar state, secondary to uncontrolled diabetes mellitus, and medication noncompliance: Patient's high blood sugar, and her symptoms correspond to diabetic hyperosmolar state, which after initial IV fluids with insulin drip, came down to less than 250, and dextrose with potassium fluid was used. Her anion gap has closed now and her oral diet has been restarted with subcutaneous NovoLog insulin sliding scale. Endocrinology has been on board, will follow recs. #Altered mental status: Patient's symptoms of altered neurological finding could be explained by her hyperosmolar state, that usually mimics TIA or even stroke. Her CAT scan of the head was negative, and a neurology consultation was placed, who recommended that this probably is a toxic metabolic encephalopathy, and further neurodiagnostic imaging should not be considered at this point of time. #continuing rest of her meds. #Diet: CC1 per Endo, changed. #DVT ppx: SQ Heparin #Code status: Full code Problem List: 1. Uncontrolled diabetes mellitus Pain Ratin Pain Location: - Pain Goal: Pain 4 or less Pain Plan: prn Tomorrow's Labs & Rationales: ERIKA Avitia MD,Dylonkalyani 03/21/17 1324: Attending MD Review Statement Attending Statement Attending MD Statement: examined this patient, discuss w/resident/PA/YIELD ENGINEER, agreed w/resident/PA/YIELD ENGINEER, discussed with family, reviewed EMR data (avail), discussed with nursing, amended to note Attending Assessment/Plan: Patient seen and examined. present at the bedside. Currently alert and oriented 3. Conversant appropriately. Speech appears intact to me however patient and report that it is not back to baseline. Patient is more concerned that her lips and tongue are dry. On examination she has no focal deficits. Her power is intact bilaterally as well as sensation. Her neurologic symptoms appear to be triggered by her hyperglycemia with hyperosmolar state and has improved significantly with control of her glucose levels. Patient and however feel that her speech is not back to baseline yet to do both agree to significant improvement. Recommendations: -Her hypoglycemia is related to medication noncompliance due to inability to afford medications. Recommend evaluation by the social work service for assistance with medications. -Please follow recommendations of the endocrinology service. -Obtain carotid Dopplers. -Continue patient on antiplatelet therapy with aspirin and plavix. Begin patient on lipid-lowering therapy with atorvastatin 40 mg orally daily. Given her significant clinical improvement there is no need for further neuroimaging as this will not change her clinical management. She is already on dual antiplatelet therapy and a cholesterol medication has been added to her regimen. -If she passes a swallow evaluation resume diet. Recommend lemon drops for her xerostomia. -Mobilize patient as tolerated. Anticipate discharge in the next 24-48 hours if her blood glucose levels are controlled. -Repeat CBC in a.m.
--- NOTE | 2017-03-21 11:09 | Cons- Neurology ---
General Information and HPI Consulting Request Date of Consult: 03/21/17 Requested By: Amanda Martell MD History of Present Illness: 71-year-old diabetic female, noncompliant with medications likely due to financial issues presents to Hospital with slurred speech. Her , at the bedside, describes a gradual decline in her general status. She is aware that her mouth is dry but denies polyuria. There is been no change in gait or localizing weakness. No reported fever. CAT scan of the brain on admission showed no acute abnormalities. Serum glucose was in the range of 490 with an increased serum osmolality Allergies/Medications Allergies: Coded Allergies: cat dander (DYSPNEA 11/12/16) crab (HIVES 10/24/16) Home Med List: Albuterol Sulfate (Ventolin Hfa) 90 MCG HFA.AER.AD 2 PUF INH Q4-6 PRN PRN dyspnea Alprazolam (Xanax) 0.5 MG TABLET 1 TAB PO BIDP PRN SHORTNESS OF BREATH Aspirin (Ecotrin*) 81 MG TABLET.DR 1 TAB PO DAILY HEART/BLOOD (Reported) Clopidogrel Bisulfate (Clopidogrel) 75 MG TABLET 1 TAB PO DAILY BLOOD THINNER (Reported) Diltiazem HCl (Diltiazem 24HR ER) 120 MG CAP.ER.24H 1 CAP PO DAILY HEART/BP ( Reported) Ergocalciferol (Vitamin D2) (Vitamin D2) 50,000 UNIT CAPSULE 1 CAP PO Q30D SUPPLEMENT (Reported) Insulin Aspart, Recombinant (Novolog Flexpen) 100 UNIT/ML INSULN.PEN DM ( Reported) Insulin Detemir (Levemir Flextouch) 100 UNIT/ML (3 ML) INSULN.PEN 40 UNITS SC QHS DM (Reported) Lisinopril 20 MG TABLET 1 TAB PO DAILY BP (Reported) Loratadine (Claritin) 10 MG TABLET 1 TAB PO DAILY ALLERGIES Sertraline HCl 100 MG TABLET 1 TAB PO DAILY MENTAL HEALTH (Reported) Review of Systems Review of Systems: Slurred speech and generalized weakness. 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 Home Services at Home: None Smoking Status: Never Smoked ETOH Use: denies use Illicit Drug Use: denies illicit drug use Functional Ability ADLs Independent: dressing, eating, toileting, bathing. Ambulation: independent IADLs Unknown: shopping, housework, finances, food prep, telephone, transportation, medication admin. Exam & Diagnostic Data Vital Signs and I&O Vital Signs Date Time Temp Pulse Resp B/P B/P Pulse O2 O2 Flow FiO2 Mean Ox Delivery Rate 03/21 0600 98.0 73 20 118/68 95 03/21 0200 97.6 77 20 110/74 96 Room Air 03/21 0035 97.9 79 18 158/84 97 Room Air 03/20 2211 96.8 79 18 133/62 98 Room Air 03/20 2105 74 139/69 03/20 2030 74 142/67 03/20 2011 76 191/96 03/20 1939 95.2 84 20 191/96 95 Room Air Intake & Output 03/21 1600 03/21 0800 03/21 0000 Intake Total 2750 Output Total 600 Balance 2150 Intake, IV 2750 Intake, Oral 0 Output, Urine 600 Patient 198 lb 195 lb Weight Weight Reported by Patient Reported by Patient Measurement Method Elderly white female fully awake, alert and in no acute distress. Higher cortical function was grossly intact. Speech was fluent. The head was normocephalic and atraumatic. Pupils were equal. Extraocular movements were full. Face was symmetric. Hearing was grossly normal. Tongue was midline. The motor examination showed no gross focal or lateralizing weakness. Deep tendon reflexes were symmetric. Plantar responses were flexor. Fine finger movements and rapid alternating movements were performed normally. There was no ataxia on [id number] testing. The gait was not evaluated. Assessment/Plan Assessment: Subacute, generalized decline associated with dysarthria, likely due to a hyperosmolar diabetic state. She is much improved with fluids and glucose control. Her examination is nonfocal and CT scan of the head showed no evidence of infarct. Recommendations: We have stressed compliance with her medication going forward. She should be ambulated with assistance and physiotherapy should be asked to assist should she appear unsteady. No further neurodiagnostic studies are currently anticipated. Please feel free to call with any further questions. Consult Acknowledgment - Thank you for your consult request.
--- NOTE | 2017-03-21 11:38 | Cons- Endocrinology ---
General Information and HPI Consulting Request Date of Consult: 03/21/17 Requested By: medical team Reason for Consult: Uncontrolled diabetes Source of Information: patient, family, old records Exam Limitations: no limitations History of Present Illness: This 71-year-old woman has a known history of diabetes type 2. She was on insulin at home including 30-40 units of Levemir and NovoLog before meals. She states she often took 15 units. She also has a history of celiac disease. The patient has known diabetic retinopathy. She denies diabetic kidney disease on neuropathy. Apparently had trouble getting her insulin because of the expense and is off her insulin for about 1 week. She presented with high sugar and a hyper osmolar state. Her calculated osmolality was 296. When she presented to the emergency room the patient had slurred speech. This is somewhat improved this morning but her was in the room states that her speech is still not normal. Allergies/Medications Allergies: Coded Allergies: cat dander (DYSPNEA 11/12/16) crab (HIVES 10/24/16) Home Med List: Albuterol Sulfate (Ventolin Hfa) 90 MCG HFA.AER.AD 2 PUF INH Q4-6 PRN PRN dyspnea Alprazolam (Xanax) 0.5 MG TABLET 1 TAB PO BIDP PRN SHORTNESS OF BREATH Aspirin (Ecotrin*) 81 MG TABLET.DR 1 TAB PO DAILY HEART/BLOOD (Reported) Clopidogrel Bisulfate (Clopidogrel) 75 MG TABLET 1 TAB PO DAILY BLOOD THINNER (Reported) Diltiazem HCl (Diltiazem 24HR ER) 120 MG CAP.ER.24H 1 CAP PO DAILY HEART/BP ( Reported) Ergocalciferol (Vitamin D2) (Vitamin D2) 50,000 UNIT CAPSULE 1 CAP PO Q30D SUPPLEMENT (Reported) Insulin Aspart, Recombinant (Novolog Flexpen) 100 UNIT/ML INSULN.PEN DM ( Reported) Insulin Detemir (Levemir Flextouch) 100 UNIT/ML (3 ML) INSULN.PEN 40 UNITS SC QHS DM (Reported) Lisinopril 20 MG TABLET 1 TAB PO DAILY BP (Reported) Loratadine (Claritin) 10 MG TABLET 1 TAB PO DAILY ALLERGIES Sertraline HCl 100 MG TABLET 1 TAB PO DAILY MENTAL HEALTH (Reported) Current Medications: Current Medications Sig/Huy Start time Last Medication Dose Route Stop Time Status Admin Acetaminophen 650 MG Q8P PRN 03/21 0030 AC PO Albuterol Sulfate 2 PUF Q4-6 PRN PRN 03/21 0030 AC INH Aspirin 0 .STK-MED ONE 03/21 0037 DC PO Aspirin 325 MG ONCE ONE 03/20 2345 DC 03/21 PO 03/20 2346 0051 Aspirin Buffered 81 MG DAILY 03/21 1000 AC 03/21 PO 0920 Atorvastatin Calcium 80 MG 1700 03/22 1700 CAN PO Atorvastatin Calcium 80 MG 1700 03/21 1700 DC PO Atorvastatin Calcium 80 MG 1700 03/21 1700 DC PO Atorvastatin Calcium 80 MG 1700 03/21 0100 AC 03/21 PO 0052 Calcium Carbonate 500 MG ONCE ONE 03/21 0515 DC 03/21 PO 03/21 0516 0508 Clopidogrel Bisulfate 75 MG DAILY 03/21 1000 AC 03/21 PO 0920 Heparin Sodium 5,000 UNIT Q8 03/21 0600 AC (Porcine) SC Insulin Aspart 7 UNITS .STK-MED ONE 03/21 0232 DC SC 03/21 0233 Insulin Aspart 0 Q4 03/20 2345 AC 03/21 SC 1051 Insulin Detemir 5 UNITS BID 03/20 2345 AC 03/21 SC 0921 Insulin Human Regular 6 UNITS ONCE ONE 03/20 2215 DC 03/20 IV 03/20 2216 2218 Insulin Human Regular 8 UNITS ONCE ONE 03/20 1999 DC 03/20 IV 03/20 Labetalol HCl 0 .STK-MED ONE 03/20 2008 DC IV Labetalol HCl 10 MG ONCE ONE 03/20 1999 DC 03/20 IV 03/20 Melatonin 5 MG AT BEDTIME 03/21 0030 AC 03/21 PO 0051 Oxycodone HCl 5 MG Q8P PRN 03/21 0030 AC PO Potassium Chloride 10 MEQ Q1H 03/21 0330 DC 03/21 IV 03/21 0431 0508 Potassium Chloride 20 MEQ DAILY 03/20 2359 AC 03/21 Dextrose/Sodium 1,000 ML IV 0043 Chloride Sodium Chloride 1,000 ML BOLUS ONE 03/20 213 DC 03/20 IV 03/20 2229 2313 Sodium Chloride 1,000 ML BOLUS ONE 03/20 2130 DC 03/20 IV 03/20 2229 2124 Review of Systems Review of Systems Constitutional: Denies: chills, fever. Cardiovascular: Denies: chest pain. Respiratory: Denies: cough, short of breath. Genitourinary: Denies: dysuria. Skin: Reports: no symptoms. 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 Home Services at Home: None Smoking Status: Never Smoked ETOH Use: denies use Illicit Drug Use: denies illicit drug use Functional Ability ADLs Independent: dressing, eating, toileting, bathing. Ambulation: independent IADLs Unknown: shopping, housework, finances, food prep, telephone, transportation, medication admin. Exam & Diagnostic Data Last 24 Hrs of Vital Signs/I&O Vital Signs Date Time Temp Pulse Resp B/P B/P Pulse O2 O2 Flow FiO2 Mean Ox Delivery Rate 03/21 0600 98.0 73 20 118/68 95 03/21 0200 97.6 77 20 110/74 96 Room Air / 0035 97.9 79 18 158/84 97 Room Air 03/201 96.8 79 18 133/62 98 Room Air 03/20 2104 74 139/69 03/20 2029 74 142/67 03/20 2011 76 191/96 03/20 1939 95.2 84 20 191/96 95 Room Air Intake & Output 03/21 1600 02/ 0800 02 0000 Intake Total 2750 Output Total 600 Balance 2150 Intake, IV 2750 Intake, Oral 0 Output, Urine 600 Patient 198 lb 195 lb Weight Weight Reported by Patient Reported by Patient Measurement Method Vital Signs Date Time Temp Pulse Resp B/P B/P Pulse O2 O2 Flow FiO2 Mean Ox Delivery Rate 03/21 0600 98.0 73 20 118/68 95 /03 0200 97.6 77 20 110/74 96 Room Air 02/ 0035 97.9 79 18 158/84 97 Room Air 03/20 2211 96.8 79 18 133/62 98 Room Air 03/20 2104 74 139/69 03/20 2029 74 142/67 03/20 2011 76 191/96 03/20 1939 95.2 84 20 191/96 95 Room Air Intake & Output 03/21 1600 03/21 0800 03/21 0000 Intake Total 2750 Output Total 600 Balance 2150 Intake, IV 2750 Intake, Oral 0 Output, Urine 600 Patient 198 lb 195 lb Weight Weight Reported by Patient Reported by Patient Measurement Method Physical Exam General Appearance: alert, awake, comfortable Head: normal appearance Eyes: Bilateral: normal appearance. Neck: normal inspection Cardiovascular: regular rate/rhythm Neurologic/Psych: awake, alert, oriented x 3, speech remains mildly slurred Labs/Hayden Results: Laboratory Tests 03/21 03/21 03/21 1035 0620 0240 Chemistry Sodium (137 - 145 mmol/L) 136 L Potassium (3.5 - 5.1 mmol/L) 3.8 Chloride (98 - 107 mmol/L) 103 Carbon Dioxide (22 - 30 mmol/L) 23 Anion Gap (5 - 16) 11 BUN (7 - 17 mg/dL) 18 H Creatinine (0.5 - 1.0 mg/dL) 1.1 H Estimated GFR (>60 ml/min) 49 L BUN/Creatinine Ratio (7 - 25 %) 16.4 Magnesium (1.6 - 2.3 mg/dL) 1.4 L Troponin I (< 0.11 ng/ml) Pending 0.08 Triglycerides (<150 mg/dL) 199 H Cholesterol (<200 MG/DL) 184 LDL Cholesterol, Calc (65 - 129 mg/dL) 104 HDL Cholesterol (40 - 60 mg/dL) 41 Cholesterol/HDL Ratio (0.00 - 4.23 %) 4 Hematology CBC w Diff NO MAN DIFF REQ WBC (4.8 - 10.8 /CUMM) 9.2 RBC (4.20 - 5.40 /CUMM) 3.72 L Hgb (12.0 - 16.0 G/DL) 10.7 L Hct (37 - 47 %) 31.0 L MCV (81.0 - 99.0 FL) 83.3 MCH (27.0 - 31.0 PG) 28.7 MCHC (33.0 - 37.0 G/DL) 34.5 RDW (11.5 - 14.5 %) 14.8 H Plt Count (130 - 400 /CUMM) 188 MPV (7.4 - 10.4 FL) 10.1 Gran % (42.2 - 75.2 %) 67.9 Lymphocytes % (20.5 - 51.1 %) 23.7 Monocytes % (1.7 - 9.3 %) 6.5 Eosinophils % (0 - 5 %) 1.5 Basophils % (0.0 - 2.0 %) 0.4 Absolute Granulocytes (1.4 - 6.5 /CUMM) 6.2 Absolute Lymphocytes (1.2 - 3.4 /CUMM) 2.2 Absolute Monocytes (0.10 - 0.60 /CUMM) 0.6 Absolute Eosinophils (0.0 - 0.7 /CUMM) 0.1 Absolute Basophils (0.0 - 0.2 /CUMM) 0 03/213 2320 2238 Chemistry Sodium (137 - 145 mmol/L) 137 Potassium (3.5 - 5.1 mmol/L) 3.0 L Chloride (98 - 107 mmol/L) 99 Carbon Dioxide (22 - 30 mmol/L) 24 Anion Gap (5 - 16) 14 BUN (7 - 17 mg/dL) 20 H Creatinine (0.5 - 1.0 mg/dL) 1.0 Estimated GFR (>60 ml/min) 55 L BUN/Creatinine Ratio (7 - 25 %) 20.0 Glucose (65 - 99 mg/dL) 276 H Lactic Acid Cancelled Urines Urinalysis LIGHT H Urine Color (YEL,AMB,STR) YEL Urine Clarity (CLEAR) HAZY H Urine pH (5.0 - 8.0) 6.0 Ur Specific [place] (1.001 - 1.035) 1.010 Urine Protein (NEG,<30 MG/DL) NEG Urine Ketones (NEG) NEG Urine Nitrite (NEG) NEG Urine Bilirubin (NEG) NEG Urine Urobilinogen (0.1 - 1.0 EU/dl) 0.2 Ur Leukocyte Esterase (NEG) SMALL H Ur Microscopic SEDIMENT EXAMINED Urine RBC (0 - 5 /HPF) RARE Urine WBC (0 - 2 /HPF) 25-50 H Ur Epithelial Cells (NONE,FEW) MANY H Urine Bacteria (NEG/NONE) FEW H Urine Hemoglobin (NEG) TRACE-INTACT Urine Glucose (N MG/DL) >=1000 H 03/20 2000 Chemistry Sodium (137 - 145 mmol/L) 132 L Potassium (3.5 - 5.1 mmol/L) 4.0 Chloride (98 - 107 mmol/L) 89 L Carbon Dioxide (22 - 30 mmol/L) 25 Anion Gap (5 - 16) 18 H BUN (7 - 17 mg/dL) 23 H Creatinine (0.5 - 1.0 mg/dL) 1.3 H Estimated GFR (>60 ml/min) 40 L BUN/Creatinine Ratio (7 - 25 %) 17.7 Glucose (65 - 99 mg/dL) 484 H Hemoglobin A1c (4.2 - 5.8 %) Pending Serum Osmolality (285 - 295 MOSM/KG) 301 H Lactic Acid (0.7 - 2.1 mmol/L) 1.7 Calcium (8.4 - 10.2 mg/dL) 9.2 Total Bilirubin (0.2 - 1.3 mg/dL) 0.7 AST (14 - 36 U/L) 13 L ALT (9 - 52 U/L) 28 Alkaline Phosphatase (<127 U/L) 88 Troponin I (< 0.11 ng/ml) 0.10 Total Protein (6.3 - 8.2 g/dL) 7.3 Albumin (3.5 - 5.0 g/dL) 4.3 Globulin (1.9 - 4.2 gm/dL) 3.0 Albumin/Globulin Ratio (1.1 - 2.2 %) 1.4 Coagulation PT (9.4 - 12.5 SEC) 10.7 INR (0.90 - 1.19) 1.02 Hematology CBC w Diff NO MAN DIFF REQ WBC (4.8 - 10.8 /CUMM) 7.8 RBC (4.20 - 5.40 /CUMM) 4.54 Hgb (12.0 - 16.0 G/DL) 12.6 Hct (37 - 47 %) 37.6 MCV (81.0 - 99.0 FL) 82.8 MCH (27.0 - 31.0 PG) 27.8 MCHC (33.0 - 37.0 G/DL) 33.6 RDW (11.5 - 14.5 %) 14.2 Plt Count (130 - 400 /CUMM) 223 MPV (7.4 - 10.4 FL) 9.6 Gran % (42.2 - 75.2 %) 70.5 Lymphocytes % (20.5 - 51.1 %) 21.8 Monocytes % (1.7 - 9.3 %) 6.0 Eosinophils % (0 - 5 %) 1.2 Basophils % (0.0 - 2.0 %) 0.5 Absolute Granulocytes (1.4 - 6.5 /CUMM) 5.5 Absolute Lymphocytes (1.2 - 3.4 /CUMM) 1.7 Absolute Monocytes (0.10 - 0.60 /CUMM) 0.5 Absolute Eosinophils (0.0 - 0.7 /CUMM) 0.1 Absolute Basophils (0.0 - 0.2 /CUMM) 0 Toxicology Acetone Level (NEGATIVE) POSITIVE AT 1:2 DIL Assessment/Plan Assessment/Plan This 71-year-old woman with a known history of diabetes mellitus type 2 treated with insulin presented with a hyperosmolar state with dehydration and hyponatremia. She had stopped her insulin at home and came to the emergency room with slurred speech. She was treated with Levemir 5 units twice a day as well as every 4 hour NovoLog sliding scale insulin. She received IV fluids at first in the form of normal saline 2 L and then D5 half-normal saline with 20 mEq KCL at 125 cc/h. Her anion gap was 18 with a bicarb of 25 initially and a serum acetone positive at 1-2. The patient's labs have now improved with normalization of her serum sodium and closure of the anion gap and improvement of her blood sugars. The patient's speech is better but she still has some slurred speech. She states her mouth is dry. The patient's speech problem could represent a small infarct versus metabolic encephalopathy. Since it has not cleared completely I am suspicious she may have had a small stroke. Patient is scheduled for a swallowing evaluation today. If she passes that we can begin her diabetic diet. She should be placed on no more than consistent carbohydrate 1 diet. While the patient is on IV fluids I would continue the present insulin regimen. When the patient begins her diet we can increase her Levemir to 10 units twice a day. In addition we can change her sliding scale NovoLog to before meals. Sliding scale NovoLog before meals would be 80-150 give 4 units NovoLog, 151-200 give 5 units NovoLog, 201-250 give 6 units NovoLog, 251-300 give 7 units NovoLog , 301-350 give 8 units NovoLog, 351-400 give 9 units NovoLog. A separate bedtime sliding scale NovoLog should be written. Sliding scale NovoLog at bedtime should be less than 250 give no insulin, 251-300 give 2 units NovoLog, 301-350 give 3 units NovoLog, 351-400 give 4 units NovoLog. Once the patient is eating well we can Hep-Lock her IV fluids. Consult Acknowledgment - Thank you for your consult request.
[2017-03-21 14:41] VITALS: BP 108/60
--- NOTE | 2017-03-21 14:53 | ULTRASOUND REPORT ---
EXAMINATION: DUPLEX BILATERAL CAROTID ULTRASOUND CLINICAL INFORMATION: Dysarthria. COMPARISON: None available. TECHNIQUE: \H\B\N\ilateral carotid US was performed using real-time ultrasound and Doppler techniques (integrating B-mode 2D vascular images, Doppler spectral analysis and color flow Doppler imaging). These techniques were utilized to interrogate the extracranial carotid and vertebral arteries bilaterally. The degree of stenosis is based off criteria similar to NASCET. FINDINGS: Right side: 1. Mild amount of hyperechoic plaque is seen in the ECA/ICA region. 2. The common carotid artery velocity is 104 cm/s. 3. The proximal internal carotid artery velocities are 77 cm/s systolic and 14 cm/s diastolic. 4. The external carotid artery velocity is 84 cm/s. Left side: 1. Mild hyperechoic plaque is seen in the ECA/ICA region. 2. The common carotid artery velocity is 93 cm/s. 3. The proximal internal carotid artery velocities are 83 cm/s systolic and 17 cm/s diastolic. The mid internal carotid artery velocities are 185 cm/s systolic and 34 cm/s diastolic. 4. The external carotid artery velocity is 270 cm/s. ADDITIONAL FINDINGS: 1. The vertebral arteries show antegrade flow. 2. The bilateral upper extremity brachial artery pressures are symmetric. IMPRESSION: 1. RIGHT: Minimal, nonhemodynamically significant stenosis of the proximal right internal carotid artery corresponding to a 0-49% stenosis by velocity criteria. There is elevation of the peak systolic velocity of the mid right internal carotid artery, as above. Whether this is secondary to true stenosis or related to vessel depth or tortuosity is uncertain. If clinically indicated, this can be more fully evaluated with CTA or MRA. 2. LEFT: Minimal, nonhemodynamically significant stenosis of the proximal left internal carotid artery corresponding to a 0-49% stenosis by velocity criteria. 3. Antegrade flow is seen via the bilateral vertebral arteries.
[2017-03-21 23:31] VITALS: BP 146/84
[2017-03-22 06:40] VITALS: BP 116/62
[2017-03-22 07:52] LABS: ABSOLUTE BASOPHIL COUNT 0 /CUMM (0.0-0.2); ABSOLUTE EOSINOPHIL COUNT 0.2 /CUMM (0.0-0.7); ABSOLUTE GRANULOCYTE CT 3.4 /CUMM (1.4-6.5); ABSOLUTE LYMPH COUNT 2.7 /CUMM (1.2-3.4); ABSOLUTE MONOCYTE COUNT 0.5 /CUMM (0.10-0.60); BASOPHIL % 0.7 % (0.0-2.0); EOSINOPHIL % 2.7 % (0-5); GRANULOCYTE % 50.4 % (42.2-75.2); HEMATOCRIT 33.4 % (37-47); MEAN CORPUSCULAR HGB 28.4 PG (27.0-31.0); MEAN CORPUSCULAR VOLUME 83.6 FL (81.0-99.0); MEAN PLATELET VOLUME 10.3 FL (7.4-10.4); PLATELET COUNT 194 /CUMM (130-400); RBC DISTRIBUTION WIDTH 14.8 % (11.5-14.5); RED BLOOD CELL CT 3.99 /CUMM (4.20-5.40); WHITE BLOOD CELL COUNT 6.8 /CUMM (4.8-10.8)
--- NOTE | 2017-03-22 09:57 | PN- Housestaff ---
Joseline MOSLEY,Nick 03/22/17 0957: Subjective Follow-up For: Hyperosmolar state, altered mental status, slurred speech. Subjective: Patient was seen and examined today. Patient states she feels well. Denies any pain, n/v, chest pain, palpitations, or SOB. Notes she has not had a bowel movement since Thursday. Denies any dysuria/hematuria. Denies lightheaded or dizziness. Denies fever or chills. No acute events overnight. BG now is 120. Review of Systems Constitutional: Reports: no symptoms. Cardiovascular: Reports: no symptoms. Respiratory: Reports: no symptoms. Gastrointestinal: Reports: constipation. Genitourinary: Reports: no symptoms. Musculoskeletal: Reports: no symptoms. Neurological/Psychological: Reports: no symptoms. Objective Last 24 Hrs of Vital Signs/I&O Vital Signs Date Time Temp Pulse Resp B/P B/P Pulse O2 O2 Flow FiO2 Mean Ox Delivery Rate 03/22 0640 97.8 79 20 116/62 98 03/21 2331 97.9 87 18 146/84 97 03/21 1441 97.3 79 20 108/60 97 Room Air Intake & Output 03/22 1600 03/22 0800 03/22 0000 Intake Total 120 Output Total Balance 120 Intake, Oral 120 Physical Exam General Appearance: Alert, Oriented X3, Cooperative, No Acute Distress HEENT: Atraumatic, Mucous Membr. moist/pink Cardiovascular: Regular Rate, Normal S1, Normal S2 Lungs: Clear to Auscultation, Normal Air Movement Abdomen: Normal Bowel Sounds, Soft, No Tenderness Extremities: No Clubbing, No Cyanosis, No Edema, Normal Pulses, No Tenderness/ Swelling Current Medications: Current Medications Sig/Huy Start time Last Medication Dose Route Stop Time Status Admin Acetaminophen 650 MG Q8P PRN 03/21 0030 AC PO Albuterol Sulfate 2 PUF Q4-6 PRN PRN 03/21 0030 AC INH Aspirin Buffered 81 MG DAILY 03/21 1000 AC 03/22 PO 0931 Atorvastatin Calcium 80 MG 1700 / 1700 DC PO Atorvastatin Calcium 40 MG 1700 / 1700 AC 03/21 PO 1716 Atorvastatin Calcium 80 MG 1700 / 0100 DC 03/21 PO 0052 Clopidogrel Bisulfate 75 MG DAILY 03/21 1000 AC 03/22 PO 0931 Heparin Sodium 5,000 UNIT Q8 03/21 0600 AC 03/22 (Porcine) AL 0659 Insulin Aspart 0 AT BEDTIME 03/21 2200 AC 03/21 AL 2115 Insulin Aspart 0 TIDAC/HS 03/21 1700 DC 03/21 AL 1508 Insulin Aspart 0 TIDAC 03/21 1700 AC 03/22 AL 0814 Insulin Aspart 0 Q4 03/20 2345 DC 03/21 AL 1051 Insulin Detemir 10 UNITS BID 03/21 2200 AC 03/22 AL 0814 Insulin Detemir 5 UNITS BID 03/20 2345 DC 03/21 AL 0921 Melatonin 5 MG AT BEDTIME 03/21 0030 AC 03/21 PO 2115 Oxycodone HCl 5 MG Q8P PRN 03/21 003 AC PO Potassium Chloride 20 MEQ DAILY 03/20 2359 DC 03/21 Dextrose/Sodium 1,000 ML IV 1144 Chloride Last 24 Hrs of Lab/Hayden Results Last 24 Hrs of Labs/Mics: Laboratory Tests 03/22/17 0610: Anion Gap 11, Estimated GFR 49 L, BUN/Creatinine Ratio 11.8, CBC w Diff NO MAN DIFF REQ, RBC 3.99 L, MCV 83.6, MCH 28.4, MCHC 34.0, RDW 14.8 H, MPV 10.3, Gran % 50.4, Lymphocytes % 39.2, Monocytes % 7.0, Eosinophils % 2.7, Basophils % 0.7, Absolute Granulocytes 3.4, Absolute Lymphocytes 2.7, Absolute Monocytes 0.5 , Absolute Eosinophils 0.2, Absolute Basophils 0 03/21/17 1035: Troponin I 0.07 Assessment/Plan Assessment: Ms Abraham is a 71 year old woman w/ a PMHx of CAD (cardiac cath 2010 showing 60% stenosis of the LAD, no PCI/ CABG) , HTN, CVA in 2009, T2DM ( non-compliant with her meds), Depression was brought in when she was found to have slurring of speech approximately 7-8 hrs prior to the presentation to the ER likely secondary to CVA. #Hyperosmolar state, secondary to uncontrolled diabetes mellitus, and medication noncompliance: Patient's high blood sugar, and her symptoms correspond to diabetic hyperosmolar state, which after initial IV fluids with insulin drip, came down to less than 250, and dextrose with potassium fluid was used. Her anion gap has closed now and her oral diet has been restarted with subcutaneous NovoLog insulin sliding scale. Endocrinology has been on board, will follow recs. Patient's blood sugars have now been within a normal range. Patient cannot afford the insulin. Dr. Francis will bring samples tomorrow. Social work on board. Patient can likely be discharged tomorrow pending the aforementioned. #Altered mental status: Patient's symptoms of altered neurological finding could be explained by her hyperosmolar state, that usually mimics TIA or even stroke. Her CAT scan of the head was negative, and a neurology consultation was placed, who recommended that this probably is a toxic metabolic encephalopathy, and further neurodiagnostic imaging should not be considered at this point of time. Patient now appears to be at her baseline. Likely AMS is secondary to uncontrolled DM. #continuing rest of her meds. #Diet: CC1 per Endo, changed. #DVT ppx: SQ Heparin #Code status: Full code Problem List: 1. Uncontrolled diabetes mellitus Pain Ratin Pain Location: n/a Pain Goal: Remain pain free Pain Plan: n/a Tomorrow's Labs & Rationales: none Lupe Avitia MD 03/22/17 1111: Attending MD Review Statement Attending Statement Attending MD Statement: examined this patient, discuss w/resident/PA/DRILLER'S ASSISTANT, agreed w/resident/PA/DRILLER'S ASSISTANT, reviewed EMR data (avail), discussed with nursing, amended to note Attending Assessment/Plan: Patient seen and examined. Sitting comfortably eating breakfast. Reports no complaints overnight. She reports feeling much better today. She reports that her speech is completely back to normal. On examination she has no focal deficits. Symptoms were most likely related to her hypoglycemia. Glucose levels have improved this morning, however last night there is a report of glucose level in the 500s. Recommendations: -Discontinue telemetry monitoring. -Follow-up with endocrinology service regarding her insulin regimen. -Follow-up with case management services regarding assisted patient in obtaining her insulin upon discharge. She was previously able to further however it appears that the gomez of her insulin pens have suddenly gone up. She reports she is unable to administer insulin via the regular syringes. -She will be discharged once cleared by the endocrinology service and once we are sure she is able to obtain her insulin upon discharge
--- NOTE | 2017-03-22 10:21 | PN- Diabetes ---
Assessment/Plan Assessment: This 71-year-old woman has a known history of diabetes type 2. She was on insulin at home including 30-40 units of Levemir and NovoLog before meals. She states she often took 15 units before meals. She also has a history of celiac disease. Present time in the hospital the patient is on 10 units of Levemir twice a day and sliding scale NovoLog before meals starting with 4 units for a sugar of 80- 150. Her sugar this morning is 193. Plan: Suggest continue Levemir 10 units twice a day and present sliding scale NovoLog. The patient still has some slurred speech which seems to be better than yesterday. The patient wants to go home. We should observe her sugars until later in the day today and she may be discharged on the present insulin regimen if her sugars are in a satisfactory range. Subjective Subjective: Feels okay Review of Systems Constitutional: Denies: chills, fever. Cardiovascular: Denies: chest pain. Respiratory: Denies: short of breath. Gastrointestinal: Denies: abdominal pain. Objective Last 24 Hrs of Vital Signs/I&O Vital Signs Date Time Temp Pulse Resp B/P B/P Pulse O2 O2 Flow FiO2 Mean Ox Delivery Rate / 0640 97.8 79 20 116/62 98 02/ 2331 97.9 87 18 146/84 97 / 1441 97.3 79 20 108/60 97 Room Air Intake & Output 03/22 1600 03/22 0800 02/ 0000 Intake Total 120 Output Total Balance 120 Intake, Oral 120 Vital Signs Date Time Temp Pulse Resp B/P B/P Pulse O2 O2 Flow FiO2 Mean Ox Delivery Rate 03/22 0640 97.8 79 20 116/62 98 02/03 2331 97.9 87 18 146/84 97 02/03 1441 97.3 79 20 108/60 97 Room Air Intake & Output 03/22 1600 03/22 0800 02/ 0000 Intake Total 120 Output Total Balance 120 Intake, Oral 120 Physical Exam General Appearance: alert, awake, comfortable Head: normal appearance Respiratory: normal breath sounds Cardiovascular: regular rate/rhythm Abdomen: normal bowel sounds Extremities: normal inspection Current Medications: Current Medications Sig/Huy Start time Last Medication Dose Route Stop Time Status Admin Acetaminophen 650 MG Q8P PRN 03/21 0030 AC PO Albuterol Sulfate 2 PUF Q4-6 PRN PRN 03/21 0030 AC INH Aspirin Buffered 81 MG DAILY 03/21 1000 AC 03/22 PO 0931 Atorvastatin Calcium 80 MG 1700 03/21 1700 DC PO Atorvastatin Calcium 40 MG 1700 03/21 1700 AC 03/21 PO 1716 Atorvastatin Calcium 80 MG 1700 03/21 0100 DC 03/21 PO 0052 Clopidogrel Bisulfate 75 MG DAILY 03/21 1000 AC 03/22 PO 0931 Heparin Sodium 5,000 UNIT Q8 03/21 0600 AC 03/22 (Porcine) SC 0659 Insulin Aspart 0 AT BEDTIME 03/21 2200 AC 03/21 SC 2115 Insulin Aspart 0 TIDAC/HS 03/21 1700 DC 03/21 SC 1508 Insulin Aspart 0 TIDAC 03/21 1700 AC 03/22 SC 0814 Insulin Aspart 0 Q4 03/20 2345 DC 03/21 PR 1051 Insulin Detemir 10 UNITS BID 03/21 2200 AC 03/22 SC 0814 Insulin Detemir 5 UNITS BID 03/20 2345 DC 03/21 SC 0921 Melatonin 5 MG AT BEDTIME 03/21 0030 AC 03/21 PO 2115 Oxycodone HCl 5 MG Q8P PRN 03/21 0030 AC PO Potassium Chloride 20 MEQ DAILY 03/20 2359 DC 03/21 Dextrose/Sodium 1,000 ML IV 1144 Chloride Findings Pertinent Lab/[facility] Results: Laboratory Tests 03/22 03/21 0610 1035 Chemistry Sodium (137 - 145 mmol/L) 140 Potassium (3.5 - 5.1 mmol/L) 4.2 Chloride (98 - 107 mmol/L) 106 Carbon Dioxide (22 - 30 mmol/L) 23 Anion Gap (5 - 16) 11 BUN (7 - 17 mg/dL) 13 Creatinine (0.5 - 1.0 mg/dL) 1.1 H Estimated GFR (>60 ml/min) 49 L BUN/Creatinine Ratio (7 - 25 %) 11.8 Troponin I (< 0.11 ng/ml) 0.07 Hematology CBC w Diff NO MAN DIFF REQ WBC (4.8 - 10.8 /CUMM) 6.8 RBC (4.20 - 5.40 /CUMM) 3.99 L Hgb (12.0 - 16.0 G/DL) 11.4 L Hct (37 - 47 %) 33.4 L MCV (81.0 - 99.0 FL) 83.6 MCH (27.0 - 31.0 PG) 28.4 MCHC (33.0 - 37.0 G/DL) 34.0 RDW (11.5 - 14.5 %) 14.8 H Plt Count (130 - 400 /CUMM) 194 MPV (7.4 - 10.4 FL) 10.3 Gran % (42.2 - 75.2 %) 50.4 Lymphocytes % (20.5 - 51.1 %) 39.2 Monocytes % (1.7 - 9.3 %) 7.0 Eosinophils % (0 - 5 %) 2.7 Basophils % (0.0 - 2.0 %) 0.7 Absolute Granulocytes (1.4 - 6.5 /CUMM) 3.4 Absolute Lymphocytes (1.2 - 3.4 /CUMM) 2.7 Absolute Monocytes (0.10 - 0.60 /CUMM) 0.5 Absolute Eosinophils (0.0 - 0.7 /CUMM) 0.2 Absolute Basophils (0.0 - 0.2 /CUMM) 0
[2017-03-22 16:01] VITALS: BP 144/80
[2017-03-22 19:03] VITALS: BP 110/78
[2017-03-23 05:48] VITALS: BP 112/68
--- NOTE | 2017-03-23 07:17 | PN- Housestaff ---
OzzyTimothy 03/23/17 0716: Subjective Follow-up For: HHS due to uncontrolled DM Subjective: No overnight events. Patient remained afebrile overnight. Seen and examined this morning. She denied any chest pain, short of breath, nausea, vomiting, chills, fever, headache, change in vision, abdominal pain, weakness and dysuria. Patient reported that she is at her baseline. Her fasting blood sugar level is 116 today. Review of Systems Constitutional: Reports: see HPI. Objective Last 24 Hrs of Vital Signs/I&O Vital Signs Date Time Temp Pulse Resp B/P B/P Pulse O2 O2 Flow FiO2 Mean Ox Delivery Rate 03/23 0548 98.3 72 20 112/68 97 Room Air 03/22 1903 97.6 78 20 110/78 96 Room Air 03/22 1601 97.9 89 20 144/80 97 Physical Exam General Appearance: Alert, Oriented X3, Cooperative Skin Temp/Moisture Exam: Warm/Dry Sepsis Skin Exam (color): Normal for Ethnicity HEENT: Atraumatic, PERRLA, EOMI Neck: Supple Cardiovascular: Normal S1, Normal S2 Lungs: Clear to Auscultation Abdomen: Soft, No Tenderness Neurological: Normal Speech, Sensation Intact Extremities: No Edema Assessment/Plan Assessment: Ms Abraham is a 71 year old woman w/ a PMHx of CAD (cardiac cath 2010 showing 60% stenosis of the LAD, no PCI/ CABG) , HTN, CVA in 2009, T2DM ( non-compliant with her meds), Depression was brought in when she was found to have slurring of speech approximately 7-8 hrs prior to the presentation to the ER likely secondary to CVA. She was downgraded to general med from telemetry floor. Hyperosmolar hyperglycemic state due to uncontrolled diabetes: -Uncontrolled diabetes due to noncompliance to medication. -Continue her Levemir 10 units twice a day -Continue her insulin NovoLog according to sliding scale. -Accu-Cheks -We will follow endocrinology recommendations. -Diabetic diet Altered mental status due to possible metabolic encephalopathy:( resolved) -Patient presented with altered mental status and slurring of speech. -CT scan head was done to rule out stroke. -Neurology consultation was obtained. They recommended that patient has symptoms due to metabolic encephalopathy due to uncontrolled diabetes. History of CAD and CVA: -We will continue home medications including Plavix, aspirin and atorvastatin. DVT prophylaxis: Mechanical and subcutaneous heparin CODE STATUS: Full code Problem List: 1. Uncontrolled diabetes mellitus Pain Ratin Pain Location: none Pain Goal: Remain pain free Pain Plan: pain pathway Tomorrow's Labs & Rationales: cbc/bep Carlie Ramirez MD 03/23/17 1255: Attending MD Review Statement Attending Statement Attending MD Statement: examined this patient, discuss w/resident/PA/ROLL BUILDER, agreed w/resident/PA/ROLL BUILDER, reviewed EMR data (avail) Attending Assessment/Plan: Patient is doing well, asymptomatic, no complaints, blood glucose levels well controlled. Stable for discharge home, will follow endocrine recommendations and confirm insurance coverage and pricing with outpatient pharmacy.
--- NOTE | 2017-03-23 09:03 | PN- Diabetes ---
Assessment/Plan Assessment: This 71-year-old woman has a known history of diabetes type 2. She entered the hospital with uncontrolled diabetes after her insulin became unavailable to her because she could not afford it. She was on insulin at home including 30-40 units of Levemir and NovoLog before meals. She states she often took 15 units before meals. She also has a history of celiac disease. Present time in the hospital the patient is on 10 units of Levemir twice a day and sliding scale NovoLog before meals starting with 4 units for a sugar of 80- 150. Her sugar this morning is 193. Plan: The patient's blood sugars are in good control on the present insulin regimen. The patient is discharged today she can go home on Levemir 10 units twice a day and the present sliding scale NovoLog before meals. The separate bedtime sliding scale NovoLog can be discontinued although the patient should check her sugar at bedtime to make sure it is not too low. Objective Last 24 Hrs of Vital Signs/I&O Vital Signs Date Time Temp Pulse Resp B/P B/P Pulse O2 O2 Flow FiO2 Mean Ox Delivery Rate 03/23 0548 98.3 72 20 112/68 97 Room Air 02/ 1903 97.6 78 20 110/78 96 Room Air 02/ 1601 97.9 89 20 144/80 97 Vital Signs Date Time Temp Pulse Resp B/P B/P Pulse O2 O2 Flow FiO2 Mean Ox Delivery Rate / 0548 98.3 72 20 112/68 97 Room Air 02/ 1903 97.6 78 20 110/78 96 Room Air 02/ 1601 97.9 89 20 144/80 97 Current Medications: Current Medications Sig/Huy Start time Last Medication Dose Route Stop Time Status Admin Acetaminophen 650 MG Q8P PRN 03/21 0030 AC PO Albuterol Sulfate 2 PUF Q4-6 PRN PRN / 0030 AC INH Aspirin Buffered 81 MG DAILY 03/21 1000 AC 03/22 PO 0931 Atorvastatin Calcium 40 MG 1700 / 1700 AC 02 PO 1627 Clopidogrel Bisulfate 75 MG DAILY 03/21 1000 AC 03/22 PO 0931 Docusate Sodium 100 MG DAILY NEEDED PRN 03/22 1230 AC PO Heparin Sodium 5,000 UNIT Q8 03/21 0600 AC 03/22 (Porcine) SC 2213 Insulin Aspart 0 AT BEDTIME 03/21 2199 03/21 AK 211 Insulin Aspart 0 TIDAC 03/21 1700 AC 03/22 SC 174 Insulin Detemir 10 UNITS BID 03/21 2199 03/22 AK 221 Melatonin 5 MG AT BEDTIME 03/21 29 AC 03/22 PO 221 Oxycodone HCl 5 MG Q8P PRN 03/21 29 PO
[2017-03-23] MEDS ORDERED: LEVEMIR FL100 UNIT/1 SC (10:37)
--- NOTE | 2017-03-23 10:45 | Patient Discharge Instructions ---
Discharge Instructions General Discharge Information You were seen/treated for: Metabolic encephalopathy. HHS due to uncontrolled diabetes. Watch for these problems: Altered mental status, abdominal pain, fever, chills, frequent urination, weakness, slurring of speech and severe headache. If you experience any of the symptom please come to ED or call your primary care physician. Special Instructions: Follow-up with your primary care physician in one week. Follow-up with customer experience manager in 1 week. -Anti-hypertension medications has been stopped considering low-normal blood pressure. Please discuss with your primary care physician or marking devices assembler to resume your lisinopril and diltiazem. -Please check showed blood pressure regularly before you go to your primary care physician for outpatient visit. Diet Recommended Diet: Diabetic Activity Activity Self Limited: Yes Acute Coronary Syndrome Inclusion Criteria At DC or during hospital stay patient has or had the following: ACS DIAGNOSIS No Discharge Core Measures Meds if any: Prescribed or Continued at Discharge Meds if any: NOT Prescribed or Continued at Discharge Congestive Heart Failure Inclusion Criteria At DC or during hospital stay patient has or had the following: CHF DIAGNOSIS No Discharge Core Measures Meds if any: Prescribed or Continued at Discharge Meds if any: NOT Prescribed or Continued at Discharge Cerebrovascular accident Inclusion Criteria At DC or during hospital stay patient has or had the following: CVA/TIA Diagnosis No Discharge Core Measures Meds if any: Prescribed or Continued at Discharge Meds if any: NOT Prescribed or Continued at Discharge Venous thromboembolism Inclusion Criteria VTE Diagnosis No VTE Type NONE VTE Confirmed by (Test) NONE Discharge Core Measures - Per Current guidelines, there needs to be overlap - treatment for the first 5 days of Warfarin therapy. - If discharged on Warfarin prior to 5 days of - overlap therapy, the patient will need to be - assessed for post discharge needs including - *Post discharge parental anticoagulation - *Warfarin and/or parental anticoagulation education - *Follow up date to check INR post discharge At least 5 days overlap therapy as Inpatient No Meds if any: Prescribed or Continued at Discharge Note: Overlap Therapy is Warfarin and Anticoagulant Meds if any: NOT Prescribed or Continued at Discharge
[2017-03-23] MEDS ORDERED: ATORVASTATIN CA40 M1 PO (10:46)
--- NOTE | 2017-03-23 13:19 | Discharge Summary ---
Visit Information Visit Dates Admission Date: 03/20/17 Discharge Date: 03/23/17 Hospital Course Course Attending Physician: Amanda Martell MD Primary Care Physician: Lyudmila Butts Hospital Course: 71 YO F with PMH of CAD (cardiac cath 2010 showing 60% stenosis of the LAD, no PCI/ CABG) , HTN, CVA in 2009, T2DM ( non-compliant with her meds), Depression was brought in when she was found to have slurring of speech approximately 7-8 hrs prior to the presentation to the ED. ED course: Vitals: Temperature 95.2, pulse 84, respiratory rate 20, blood pressure 191/96, oxygen saturation 95% on room air. Labs: WBC count 7.8, hemoglobin 12.6, hematocrit 37.6, platelet count 223, sodium 132, potassium 4.0, BUN 23, creatinine 1.3, BUN/creatinine ratio 17.7, glucose 484, anion gap 18, serum osmolality 301, calcium 9.2, lactic acid 1.7, AST 13, total bilirubin 0.7 CT scan head was done in ED that was negative for any hemorrhage or acute abnormality. Hyperosmolar hyperglycemic state due to uncontrolled diabetes: Patient presented with high blood sugar level and high serum osmolality due to uncontrolled diabetes secondary to noncompliance to her medications. Patient admitted with hyperosmolar hyper glycemic state and also had low sodium level. Endocrinology consult was obtained and recommendations were followed. Patient was treated initially with IV normal saline with insulin drip. Later on IV fluids changed to D5 half and supplemental potassium was added to replete the potassium. Patient's blood sugar level and sodium level improved. Later on patient was given Levemir and insulin NovoLog according to sliding scale as recommended by endocrinology. Her blood sugar level was monitored closely. Initially patient was treated in telemetry floor but later on she was downgraded to general medicine floor. Patient remained hemodynamically stable and her blood sugar level remained under control with insulin level made and NovoLog according to sliding scale and she was discharged. Patient was instructed to follow endocrinology as outpatient and take her medication for diabetes regularly. Altered mental status possibly due to metabolic encephalopathy: Patient presented with altered mental status probably due to metabolic encephalopathy in the setting of hyperosmolar hyperglycemic state. She also had slurring of her speech. CT scan head was obtained in ED that was negative for any acute abnormality. Neurology consult was obtained and recommendations were followed. They recommended that her slurring of speech could be due to hyperosmolar hyper glycemic state considering her negative CT scan. Carotid Doppler study was obtained that showed minimal bilateral stenosis. They recommended better control of blood sugar level. Later on patient came back to her baseline. Her speech improved and also generalized weakness improved after better control of blood sugar levels. History of CAD and CVA: We continued home medications including Plavix, aspirin and atorvastatin. History of hypertension: Patient's antihypertensive medications were held considering her borderline normal blood pressure. Patient was instructed to check her blood pressure regularly before she goes to primary care physician office. Patient was instructed to discuss with primary care physician to resume all keep holding the antihypertensive medication according to her blood pressure. DVT prophylaxis: Mechanical and subcutaneous heparin CODE STATUS: Full code Allergies: Coded Allergies: cat dander (DYSPNEA 11/12/16) crab (HIVES 10/24/16) Pertinent Lab Results: CT scan head on 03/20/17: Impression: 1. No acute abnormalities identified. No intracranial hemorrhage. 2. Moderate-marked white matter chronic small vessel ischemic changes grossly stable compared with 02/04/2015. Chest x-ray on 03-20-17: IMPRESSION: Unremarkable examination. Carotid Doppler study on 03/21/17: IMPRESSION: 1. RIGHT: Minimal, nonhemodynamically significant stenosis of the proximal right internal carotid artery corresponding to a 0-49% stenosis by velocity criteria. There is elevation of the peak systolic velocity of the mid right internal carotid artery, as above. Whether this is secondary to true stenosis or related to vessel depth or tortuosity is uncertain. If clinically indicated, this can be more fully evaluated with CTA or MRA. 2. LEFT: Minimal, nonhemodynamically significant stenosis of the proximal left internal carotid artery corresponding to a 0-49% stenosis by velocity criteria. 3. Antegrade flow is seen via the bilateral vertebral arteries. WBC count 6.8, hemoglobin 11.4, hematocrit 33.4, platelet count 194, sodium 140 , potassium 4.2, anion gap 11, BUN 13, creatinine 1.1, BU and/creatinine ratio 11.8, magnesium 1.5, troponin 0.07, 0.08. Disposition Summary Disposition Principal Diagnosis: Hyperosmolar hyperglycemic state Metabolic encephalopathy Additional Diagnosis: Hypertension Diabetes CAD Discharge Disposition: home or self care Discharge Instructions General Discharge Information Code Status: Full Code Patient's Diet: Diabetic Patient's Activity: Self-limited Follow-Up Instructions/Appts: Follow-up with your primary care physician in one week. Follow-up with endocrinology in 1 week. Medications at Discharge Discharge Medications: Stop taking the following medications: Lisinopril (Lisinopril) 20 MG TABLET ORAL DAILY Qty = 30 Diltiazem HCl (Diltiazem 24HR ER) 120 MG CAP.ER.24H ORAL DAILY Qty = 30 Loratadine (Claritin) 10 MG TABLET ORAL DAILY Qty = 30 Continue taking these medications: Ergocalciferol (Vitamin D2) (Vitamin D2) 50,000 UNIT CAPSULE 1 Capsule ORAL ONCE A MONTH Clopidogrel Bisulfate (Clopidogrel) 75 MG TABLET 1 Tablet ORAL DAILY Qty = 30 Comments: Last Taken:03/23/17 Time:9:46 AM Sertraline HCl (Sertraline HCl) 100 MG TABLET 1 Tablet ORAL DAILY Qty = 90 Comments: NOT GIVEN IN THE HOSPITAL Insulin Aspart, Recombinant (Novolog Flexpen) 100 UNIT/ML INSULN.PEN 0 Inject into fatty tissue 3 TIMES DAILY BEFORE MEALS Qty = 15 Instructions: BEFORE MEALS Blood Insulin Sugar Units <80 0 81-150 4 151-200 5 201-250 6 251-300 7 301-350 8 351-400 9 >400 Call Doctor AT BEDTIME Check your blood sugars at night time to make sure it's not too low. Aspirin (Ecotrin*) 81 MG TABLET.DR 1 Tablet ORAL DAILY Comments: Last Taken:03/23/17 Time:9:46 AM Albuterol Sulfate (Ventolin Hfa) 90 MCG HFA.AER.AD 2 Puff Inhale through mouth EVERY 4-6 HOURS NEEDED as needed for dyspnea Qty = 1 Alprazolam (Xanax) 0.5 MG TABLET 1 Tablet ORAL 2 x Daily as needed as needed for SHORTNESS OF BREATH Qty = 8 Comments: NOT GIVEN I THE HOSPITAL. Start taking the following new medications: Atorvastatin Calcium (Atorvastatin Calcium) 40 MG TABLET 1 Tablet ORAL DAILY Qty = 30 No Refills The following medications have been changed: Old: Insulin Detemir (Levemir Flextouch) 100 UNIT/ML (3 ML) INSULN.PEN 40 Units Inject into fatty tissue TAKE AT BEDTIME Qty = 15 New: Insulin Detemir (Levemir Flextouch) 100 UNIT/ML (3 ML) INSULN.PEN 10 Units Inject into fatty tissue TWICE DAILY Qty = 15 Copies To: Lyudmila Butts; Penny MOSLEY,Pasquale Sam
== END 2017-03-23 13:15 | DRG 637 ==
LOC: ERH 19:28 → ERHI 22:22 → 2NB 22:22 → ENRESERV 03-21 00:38 → 1NO 03-21 01:56 → ENTRNSPT 03-22 17:31 → EDTRNSPTSTS 03-22 18:34 → EDTRNSPT 03-22 18:34 → 2NB 03-22 18:46 → CMPTRNSPT 03-22 18:51 → ENPENDDIS 03-23 10:57 → ENTRNSPT 03-23 12:55 → EDTRNSPTSTS 03-23 13:04 → EDTRNSPT 03-23 13:04 → 2NB 03-23 13:15 → CMPTRNSPT 03-23 13:23
PROVIDERS: Internal Medicine Endocrinology, Diabetes & Metabolism; Physician Assistant Medical; Student in an Organized Health Care Education/Training Program
DX: E11.65 Type 2 diabetes mellitus with hyperglycemia (principal); E11.00 Type 2 diabetes mellitus with hyperosmolarity without nonketotic hyperglycemic-hyperosmolar coma (NKHHC); G93.41 Metabolic encephalopathy; E87.2 Acidosis; E86.0 Dehydration; K86.81 Exocrine pancreatic insufficiency; E87.1 Hypo-osmolality and hyponatremia; Z79.4 Long term (current) use of insulin; Z91.14 Patient's other noncompliance with medication regimen; E11.319 Type 2 diabetes mellitus with unspecified diabetic retinopathy without macular edema; R47.81 Slurred speech; I25.10 Atherosclerotic heart disease of native coronary artery without angina pectoris; Z86.73 Personal history of transient ischemic attack (TIA), and cerebral infarction without residual deficits; Z79.02 Long term (current) use of antithrombotics/antiplatelets; Z59.9 Problem related to housing and economic circumstances, unspecified; F32.9 Major depressive disorder, single episode, unspecified; K90.0 Celiac disease
CPT/HCPCS: 1NP; 2NBP; ERO; 36415; 71045; 81001; 82436; 87040; 93005; 93010; 96361; 96374; 96375; 96376; 97116-GO; 97161-GP; 97530-GO; 99291; J1644; J1815; J3490; J7042

== ENCOUNTER 2017-06-24 17:00 | Inpatient (IN) | payer OTHER ==
[~2017-06-24] VITALS: Ht 152.4 cm; Wt 87.7 kg
[~2017-06-24 17:00] MED LIST changes: +ATORVASTATIN CA40 M1 PO
--- NOTE | 2017-06-24 17:06 | ED DYSPNEA/ASTHMA COMPLAINT ---
History of Present Illness General Chief Complaint: Upper Respiratory Sx/Fever Stated Complaint: PT NEEDS A REFILL ON HER RX Source: patient Exam Limitations: no limitations Vital Signs & Intake/Output Vital Signs & Intake/Output Vital Signs Date Time Temp Pulse Resp B/P B/P Pulse O2 O2 Flow FiO2 Mean Ox Delivery Rate 06/24 1911 91 20 135/63 97 Room Air 06/24 1703 98.6 96 18 174/95 97 Room Air Allergies Coded Allergies: cat dander (DYSPNEA 11/12/16) crab (HIVES 10/24/16) Reconcile Medications Albuterol Sulfate (Ventolin Hfa) 90 MCG HFA.AER.AD 2 PUF INH Q4-6 PRN PRN dyspnea Alprazolam (Xanax) 0.5 MG TABLET 1 TAB PO BIDP PRN SHORTNESS OF BREATH Aspirin (Ecotrin*) 81 MG TABLET.DR 1 TAB PO DAILY HEART/BLOOD (Reported) Atorvastatin Calcium 40 MG TABLET 1 TAB PO DAILY Heart health Clopidogrel Bisulfate (Clopidogrel) 75 MG TABLET 1 TAB PO DAILY BLOOD THINNER (Reported) Ergocalciferol (Vitamin D2) (Vitamin D2) 50,000 UNIT CAPSULE 1 CAP PO Q30D SUPPLEMENT (Reported) Insulin Aspart, Recombinant (Novolog Flexpen) 100 UNIT/ML INSULN.PEN 0 SC TIDAC DM (Reported) BEFORE MEALS Blood Insulin Sugar Units <80 0 81-150 4 151-200 5 201-250 6 251-300 7 301-350 8 351-400 9 >400 Call Doctor AT BEDTIME Check your blood sugars at night time to make sure it's not too low. Insulin Detemir (Levemir Flextouch) 100 UNIT/ML (3 ML) INSULN.PEN 10 UNITS SC BID DM Sertraline HCl 100 MG TABLET 1 TAB PO DAILY MENTAL HEALTH (Reported) Triage Note: 71 YO FEMALE TO TRIAGE FOR EVAL OF CHEST CONGESTION. REPORTS SHE WAS HERE THE OTHER DAY AND GIVEN AN INHALER AND IT HELPED BUT SHE RAN OUT. STATES SHE NOW FEELS CONGESTED AGAIN. DENIES ANY PAIN. STATES COUGH IS DRY. Triage Nurses Notes Reviewed? yes Onset: Abrupt Duration: constant Timing: single episode today Severity: moderate Activities at Onset: none HPI: Patient is a 71-year-old female with a past medical history of diabetes, CAD cardiac catheterization in 2010 showing 60% stenosis to the LAD, hypertension, CVA, who presents emergency and that yesterday evening patient was in her normal state of health however today patient has been complaining of dyspnea. Patient states that ambulation does not change her symptoms. Denies any fever chills cough chest pain arm pain jaw pain nausea vomiting leg swelling hemoptysis. Patient does state that she's been prescribed inhalers which the medication ran out where she was unable to use this. Patient denies any smoking history. (Bebeto Suero) Past History Travel History Traveled to [place] past 21 day No Medical History Any Pertinent Medical History? 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 No (Bebeto Suero) Review of Systems Review of Systems Constitutional: Reports: no symptoms. EENTM: Reports: no symptoms. Respiratory: Reports: see HPI, short of breath. Denies: cough. Cardiovascular: Reports: no symptoms. GI: Reports: no symptoms. Genitourinary: Reports: no symptoms. Musculoskeletal: Reports: no symptoms. Skin: Reports: no symptoms. Neurological/Psychological: Reports: no symptoms. Hematologic/Endocrine: Reports: no symptoms. Immunologic/Allergic: Reports: no symptoms. All Other Systems: Reviewed and Negative (Bebeto Suero) Physical Exam Physical Exam General Appearance: no apparent distress, alert, comfortable Head: atraumatic Eyes: Bilateral: normal appearance. Ears, Nose, Throat: normal ENT inspection, hearing grossly normal Neck: normal inspection, supple Respiratory: normal breath sounds, chest non-tender, no respiratory distress Cardiovascular: regular rate/rhythm Peripheral Pulses: 2+ radial (R) Gastrointestinal: normal bowel sounds, soft, non-tender Neurologic/Psych: no motor/sensory deficits, awake, alert, oriented x 3, normal gait, normal mood/affect Skin: intact, normal color, warm/dry Core Measures ACS in differential dx? Yes CVA/TIA Diagnosis No Sepsis Present: No Sepsis Focused Exam Completed? No (Vick TONEY,Bebeto) Progress Differential Diagnosis: asthma, AMI, bronchitis, costochondritis, CHF, COPD, musculoskeletal pain, pericarditis, pulmonary embolism, pneumonia, pneumothorax, unstable angina Plan of Care: Orders Procedure Date/time Status Consistent Carbohydrate 2 06/25 B Active Patient Data 06/25 1935 Active OXYGEN SETUP (GEN) 06/24 1929 Active Saline Lock 06/24 1929 Active Admit to inpatient 06/24 1929 Active Vital Signs 06/24 1929 Active Activity/Ambulation 06/24 1929 Active Code Status 06/24 1929 Active FingerStick- Glucose 06/24 1804 Active MIXED VENOUS BLOOD GAS (GEN) 06/24 1801 Active Add-on Test (ER Only) 06/24 180 Active LACTIC ACID 06/24 172 Complete ACETONE 06/24 172 Complete TROPONIN LEVEL 06/24 1709 Complete D-DIMER 06/24 1709 Complete COMPREHENSIVE METABOLIC PANEL 06/24 1709 Complete CBC WITHOUT DIFFERENTIAL 06/24 1709 Complete B-TYPE NATRIURETIC PEP (BNP) 06/24 171 Complete EKG 06/24 171 Active Intake & Output 06/24 170 Active Laboratory Tests 06/24/17 1825: Bicarbonate Actual 26, Mixed VBG pH 7.42 H, Mixed VBG pCO2 41, Mixed VBG O2 Saturation 35, Carboxyhemoglobin 0.5 L, Temperature 98.6 06/24/17 1724: Anion Gap 12, Estimated GFR 34 L, BUN/Creatinine Ratio 15.3, Glucose 584 *H, Lactic Acid 1.4, Calcium 9.7, Total Bilirubin 0.9, AST 12 L, ALT 23, Alkaline Phosphatase 80, Troponin I 0.03, Oll-H-Gjdmigbkygv Pept 983 H, Total Protein 7.0, Albumin 4.1, Globulin 2.9, Albumin/Globulin Ratio 1.4, D-Dimer High Sensitivty 285 H, CBC w Diff NO MAN DIFF REQ, RBC 4.41, MCV 83.4, MCH 27.7, MCHC 33.2, RDW 13.4, MPV 11.1 H, Gran % 63.8, Lymphocytes % 27.4, Monocytes % 6.0, Eosinophils % 2.1, Basophils % 0.7, Absolute Granulocytes 4.3, Absolute Lymphocytes 1.9, Absolute Monocytes 0.4, Absolute Eosinophils 0.1, Absolute Basophils 0, Acetone Level NEGATIVE Patient upon initial presentation was resting comfortably at bedside no apparent distress no respiratory distress oxygen saturation 98% clear lungs auscultation patient denies any chest pain however due to her comorbidities blood work and imaging an EKG will be obtained. Patient was given albuterol treatment for concerns of dyspnea however again no wheezing or respiratory distress is noted DDX INCLUDE hyperglycemia DKA HHS Patient does have critical results of blood sugar over 500 it is noted through old records the patient was admitted in March for concerns of HHS, IV fluids were established Repeat glucose was 484, patient will receive insulin. Discussed patient with Dr. Francis Patient does state that she did not take her Levemir nor her insulin today. Patient also states she ate a lot of "bad food" Due to patient's significant elevation of blood sugar and non-compliancy with medications I discussed my concerns with Dr. Francis who he advised patient to be admitted to the hospital for blood sugar regulation. No concerns of DKA. Patient will was advised to be given 8 units of NovoLog and 10 units of Levemir. Discussed disposition plan with patient and family Diagnostic Imaging: Viewed by Me: Radiology Read. CXR Impression: no acute abnormality, no infiltrates, normal size heart Initial ED EKG: normal p-waves, normal QRS complex, normal sinus rhythm, NSR, 89 BPM Comments: PATIENT: JOSE BROWN PRESENT AGE: 71 PATIENT ACCOUNT NO: [id number] : 46 LOCATION: [facility] ORDERING PHYSICIAN: Bebeto TONEY SERVICE DATE: 06/24/17 EXAM TYPE: RAD - XRY-CHEST XRAY, TWO VIEWS EXAMINATION: XR CHEST CLINICAL INFORMATION: Shortness of breath COMPARISON: 03/20/2017 TECHNIQUE: 2 views of the chest were obtained. FINDINGS: The lungs are well-inflated and clear. Trachea is midline in position. No evidence of interstitial disease, focal consolidation, mass, pneumothorax or pleural effusion. The cardiomediastinal silhouette and pulmonary rosemary have normal size and contour. No acute findings within the degenerated spine. Surgical clips within the upper abdomen. IMPRESSION: No acute cardiopulmonary disease compared to 03/20/2017. 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 Secondary Impressions: Dyspnea, unspecified Referrals: Lyudmila Butts (PCP/Family) Departure Forms: Customer Survey General Discharge Information Admission Note Spoke With: Amanda Martell MD Documentation of Exam: Documentation of any treatments & extenuating circumstances including Concerns Regarding Discharge (functional status, medication knowledge or non-compliance, living conditions, etc.) that warrant an admission rather than observation: [ Patient requires general medicine admission for concerns of hyperglycemic hyperosmolar state, patient requires blood sugar regulation insulin and Levemir administration pharmacy reconciliation, repeat labs, IV fluids, endocrinology consultation case management consultation] (Bebeto Suero) PA/INDUSTRIAL PIPEFITTER JOURNEYMAN Co-Sign Statement Statement: ED Attending supervision documentation- x I saw and evaluated the patient. I have also reviewed all the pertinent lab results and diagnostic results. I agree with the findings and the plan of care as documented in the PA's/INDUSTRIAL PIPEFITTER JOURNEYMAN's documentation. Hyperglycemia hyperosmolar [] I have reviewed the ED Record and agree with the PA's/INDUSTRIAL PIPEFITTER JOURNEYMAN's documentation. [] Additions or exceptions (if any) to the PAs/INDUSTRIAL PIPEFITTER JOURNEYMAN's note and plan are summarized below: [] (James MOSLEY,Lino) Critical Care Note Critical Care Note Critical Care Time: 30-74 min (Bebeto Suero)
[2017-06-24 17:58] LABS: ABSOLUTE BASOPHIL COUNT 0 /CUMM (0.0-0.2); ABSOLUTE EOSINOPHIL COUNT 0.1 /CUMM (0.0-0.7); ABSOLUTE GRANULOCYTE CT 4.3 /CUMM (1.4-6.5); ABSOLUTE LYMPH COUNT 1.9 /CUMM (1.2-3.4); ABSOLUTE MONOCYTE COUNT 0.4 /CUMM (0.10-0.60); BASOPHIL % 0.7 % (0.0-2.0); EOSINOPHIL % 2.1 % (0-5); GRANULOCYTE % 63.8 % (42.2-75.2); HEMATOCRIT 36.8 % (37-47); MEAN CORPUSCULAR HGB 27.7 PG (27.0-31.0); MEAN CORPUSCULAR HGB CONC 33.2 G/DL (33.0-37.0); MEAN CORPUSCULAR VOLUME 83.4 FL (81.0-99.0); MEAN PLATELET VOLUME 11.1 FL (7.4-10.4); PLATELET COUNT 224 /CUMM (130-400); RBC DISTRIBUTION WIDTH 13.4 % (11.5-14.5); RED BLOOD CELL CT 4.41 /CUMM (4.20-5.40); WHITE BLOOD CELL COUNT 6.8 /CUMM (4.8-10.8)
--- NOTE | 2017-06-24 19:04 | RADIOLOGY REPORT ---
EXAMINATION: XR CHEST CLINICAL INFORMATION: Shortness of breath COMPARISON: 03/20/2017 TECHNIQUE: 2 views of the chest were obtained. FINDINGS: The lungs are well-inflated and clear. Trachea is midline in position. No evidence of interstitial disease, focal consolidation, mass, pneumothorax or pleural effusion. The cardiomediastinal silhouette and pulmonary rosemary have normal size and contour. No acute findings within the degenerated spine. Surgical clips within the upper abdomen. IMPRESSION: No acute cardiopulmonary disease compared to 03/20/2017.
--- NOTE | 2017-06-24 19:52 | History & Physical ---
Addi Hurt MD,Ami 06/24/171950: General Information and HPI MD Statement: I have seen and personally examined JOSE BROWN and documented this H&P. The patient is a 71 year old F who presented with a patient stated chief complaint of [Chest congestion]. Source of Information: patient, family History of Present Illness: 71 YO F with PMH of ?CAD (?cardiac cath 2010 showing 60% stenosis of the LAD, cardiac cath in 2010, on dual antiplt, based on previous records but denied by family and patient) , HTN, CVA in 2009, Hlip, T2DM (on ins, h/o non compliance due to financial issues?), Depression presented to the ED with CC of chest tightness. Patients was also contacted to complete the history as there were some questions regarding patients underlying dementia/confabulation. Patient reported that for the last few days she had feeling of chest congestion. According to records patient had several visits to the ED for shortness of breathing, and was prescribed inhalers and Xanax (suspicion for anxiety related) . Patient noted that she ran out of her inhalers, she went to [facility] today to refill the medication and she was told to come to hospital. Patient also reported dry mouth (she related her slurred speach to that). She denied any fever, chills, cough, eye or ear pain, sneezing, orthopnea, PND or dizziness. They have 3 dogs and 1 cat at home and none of them were new. She reported her foster daughter had flu last week and was being treated by Tamiflu. She also reported she checked her blood sugar 3 times a day before meals and they are usually less than 200s, but noted she didn't receive insulin last night and this morning as she ran out of them but was planning to take them today (patient also reported financial issues related to picking current medication. reported different history. According to patient had dementia/ confabulation, and several occasions of agitation. Patient was not paying bills for the last 8 years, despite she noted she said and this caused a lot of distress for the family. According to family they had concerns regarding patient's safety as she is not taking her medications or following diabetic diet. Patient was last admitted to [facility] in mar 2017 for evaluation of speech and was found due to have HHS. She was discharged on sliding scale with instructions to follow with PCP and Dr. Francis, however she only visited Dr. Francis' s MAIL CARRIER once. She noted she never smoke or drink alcohol and she is independent in activities of daily life. Allergies/Medications Allergies: Coded Allergies: cat dander (DYSPNEA 11/12/16) crab (HIVES 10/24/16) Home Med list Clopidogrel Bisulfate (Clopidogrel) 75 MG TABLET 1 TAB PO DAILY BLOOD THINNER (Reported) Insulin Aspart, Recombinant (Novolog Flexpen) 100 UNIT/ML INSULN.PEN 0 SC TIDAC DM (Reported) BEFORE MEALS Blood Insulin Sugar Units <80 0 81-150 4 151-200 5 201-250 6 251-300 7 301-350 8 351-400 9 >400 Call Doctor AT BEDTIME Check your blood sugars at night time to make sure it's not too low. 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 Ambulation: independent IADLs Unknown: shopping, housework, finances, food prep, telephone, transportation, medication admin. Review of Systems Review of Systems Constitutional: Reports: see HPI. Exam & Diagnostic Data Last 24 Hrs of Vital Signs/I&O Vital Signs Date Time Temp Pulse Resp B/P B/P Pulse O2 O2 Flow FiO2 Mean Ox Delivery Rate 06/24 2158 97.6 88 18 126/80 97 Room Air 06/24 2103 87 20 154/91 97 Room Air 06/24 1911 91 20 135/63 97 Room Air 06/24 1703 98.6 96 18 174/95 97 Room Air Physical Exam General Appearance Alert, Oriented X3, Cooperative, No Acute Distress Skin erythema in bilateral forearm, central clearing noted to be related to psoriasis Skin Temp/Moisture Exam: Warm/Dry Sepsis Skin Exam (color): Normal for Ethnicity HEENT Atraumatic, EOMI Cardiovascular Normal S1, Normal S2 Lungs Clear to Auscultation, Normal Air Movement Abdomen Soft, No Tenderness Neurological Strength at 5/5 X4 Ext, can remember 2/3 words Last 24 Hrs of Labs/Hayden: Laboratory Tests 06/24/17 1825: Bicarbonate Actual 26, Mixed VBG pH 7.42 H, Mixed VBG pCO2 41, Mixed VBG O2 Saturation 35, Carboxyhemoglobin 0.5 L, Temperature 98.6 06/24/17 1724: Anion Gap 12, Estimated GFR 34 L, BUN/Creatinine Ratio 15.3, Glucose 584 *H, Hemoglobin A1c Pending, Serum Osmolality 308 H, Lactic Acid 1.4, Calcium 9.7, Total Bilirubin 0.9, AST 12 L, ALT 23, Alkaline Phosphatase 80, Troponin I 0.03 , Jgb-A-Nqjrvuqitqq Pept 983 H, Total Protein 7.0, Albumin 4.1, Globulin 2.9, Albumin/Globulin Ratio 1.4, D-Dimer High Sensitivty 285 H, CBC w Diff NO MAN DIFF REQ, RBC 4.41, MCV 83.4, MCH 27.7, MCHC 33.2, RDW 13.4, MPV 11.1 H, Gran % 63.8, Lymphocytes % 27.4, Monocytes % 6.0, Eosinophils % 2.1, Basophils % 0.7, Absolute Granulocytes 4.3, Absolute Lymphocytes 1.9, Absolute Monocytes 0.4, Absolute Eosinophils 0.1, Absolute Basophils 0, Acetone Level NEGATIVE Microbiology 06/24 2106 NASOPHARYN: Influenza Virus A & B Rapid Smear - COMP Assessment/Plan Assessment: 71 YO F with presented with chest congestion dry mouth h/o noncompliance with medication family reported dementia/confabulation PMH of ?CAD (?cardiac cath 2010 showing 60% stenosis of the LAD, cardiac cath in 2010, on dual antiplt, based on previous records but denied by family and patient) , HTN, CVA in 2009, Hlip, T2DM (on ins, h/o non compliance due to financial issues?), Depression presented to the ED with CC of chest tightness. VS, Ph Ex at admission: No fever, BP 174/95, UT 96 Labs at admission: C BC insignificant, BEP, Na 130, BUN 23, Cr 1.5, glucose 584, proBNP 983, d-dimer 285, Imagings at admission: CXR: No acute cardiopulmonary disease compared to 03/20/2017. Patient was admitted to GM floor for management of following conditions: Hyperglycemia r/o dementia/confabulatino family distress/ safety/ noncompliance with medication ?chest congestion -Admit to general medicine floor -Vital sign monitor -Continue IV fluids -Accu-Cheks, sliding scale and Levemir -Hold on potassium administration -TSH B12, consider VDRL - trc, nebs -Social consult FC Diabetic diet DVT PPX: ALPS, pharmacological As Ranked By This Provider Problem List: 1. Uncontrolled diabetes mellitus 2. Noncompliance with medication regimen 3. Dementia Core Measures/Misc (11/02) Acute Coronary Syndrome ACS Diagnosis: No Congestive Heart Failure Congestive Heart Failure Diagnosis No Cerebrovascular Accident CVA/TIA Diagnosis: No VTE (View Protocol) VTE Risk Factors Age>40 No Mechanical VTE Prophylaxis d/t N/A MechProphylax Ordered No VTE Pharm Prophylaxis d/t NA PharmProphylax ordered Sepsis (View protocol) Sepsis Present: No Amanda Martell 06/25/17 0011: Attending MD Review Statement Attending Statement Attending MD Statement: examined this patient, discuss w/resident/PA/MACHINERY ERECTOR, agreed w/resident/PA/MACHINERY ERECTOR, reviewed EMR data (avail), reviewed images, amended to note Attending Assessment/Plan: CC: Chest congestion PMH: DM on insulin, HTN, history of CVA, HLD, CAD, depression History is ambiguous, different from different sources. According to patient she was feeling dizzy and congested in her chest, every now and then, she had the same feeling today. She feels better with albuterol inhaler that she received in her previous ER visits. She went to pharmacy to refill it but the prescription was not available so she came to ER. Other than the chest congestion patient denies any shortness of breath, chest tightness, chest pain, arm pain, jaw pain, palpitation, dizziness, blurry vision. When questioned about hypoglycemia patient states that she ran out of medications since last 3 days because she does not have money and has not been taking insulin. When asked how much insulin she takes, she sees Levemir 12 units twice a day. She denies taking any other medications. Otherwise complete ROS unremarkable. When family was called they said that they're concerned about patient's mentation as she appears to be more forgetful and not taking insulin as she is supposed to. There was a family member helping her out with her medications until 3 weeks back, that family members left and now patient is taking all the medications without any assistance but family is not sure what medications. According to her patient did not pay any life abuse or other utility bills and they have accumulated bills worth of 8 years, about to evacuate the house. According to ER staff, daughter informed that they are concerned about patient's safety. For example patient had peas and ice cream today and forgot to take insulin even with her brittle diabetes. Vitals: Temperature 98.6, pulse 96, RR 18, blood pressure 174/95, saturating 97% on room air On exam: A O 3, cooperative, no acute distress, neck supple, JVD normal, no lymphadenopathy, mucosa very dry, no focal neurological deficit, 3 object recall 2/3, no dependent edema, no obvious skin rashes or inflammation CVS: S1-S2, RRR. RS: Clear to auscultate bilaterally. Abdomen: Soft, NT, ND, bowel sounds present. CXR: No acute cardiopulmonary disease compared to 03/20/2017. Assessment and plan 71-year-old female with extensive past medical history was brought in by family with a concern of safety issues, medication noncompliance. Family informed to the ER staff that patient has not been taking insulin as suggested, appears more forgetful. They informed us on phone that she has on and off phases sometimes get aggressive. Patient states that she feels mild chest congestion which usually is relieved by albuterol inhalation but she ran out of the prescription, pharmacy did not have any refill so she came to ER. Complete physical examination unremarkable, patient does not have any crackles or wheezing, no JVD , no leg edema, proBNP 983 ruling out any congestive heart failure, d-dimer 285 rule out any PE, troponin 0.03, no acute ECG changes. And currently patient doesn't complain of any chest pain chest tightness or congestion. Secondly she is hyperglycemic with a glucose of 584, pseudohyponatremia, mild elevation in creatinine. This is consistent with noncompliance with her insulin, on examination she looks dehydrated. Whether this noncompliance secondary to financial issues as mentioned by patient or secondary to forgetfulness as mentioned by family or combination of both should be evaluated. Patient was in ER for similar episode in March for transient slurred speech, was evaluated for CVA and at that time transient slurry speech was considered secondary to hyperglycemia. Her insulin regimen was readjusted and patient was discharged home. At that time her hemoglobin A1c was 13.6. ER provider called reception agent who also mentioned concern about noncompliance and memory issues. Patient is recalled 2 of 3 objects in 5 minutes, well oriented, she even recalls that her pro-air prescription was given by Dr. Sanders (that is true according to ER records it was prescribed by Dr. Sanders in October 2016). Thus this could be early dementia, major depression or any other behavioral issues. CT scan done in March 2016 shows Moderate-marked white matter chronic small vessel ischemic changes grossly stable compared with 02/04/2015. + Hyperglycemia: noncompliance + Suspected early dementia - Admit to general medicine - Continue gentle hydration - Continue diabetic diet - Continue Levemir 10 units twice a day - Continue sliding scale pre-meal - Endocrine consult - Please start vitamin D2, Plavix, sertraline, aspirin, when necessary Xanax, (Patient is on dual antiplatelet agent, I think secondary to extensive coronary artery disease mentioned by Dr. Johnson in 2010, coronary cath ) - Check TSH, HbA1c, B12, check UA urine culture, check U tox - DVT prophylaxis Brynn MOSLEY,[facility] 06/25/17 0029: Resident Review Statement Resident Statement: examined this patient, discussed with internet marketing assistant, agreed with internet marketing assistant, discussed with family, reviewed EMR data (avail) Other Findings: Patient is 71-year-old female with past medical history significant for diabetes mellitus on insulin, hypertension, hyperlipidemia, CVA with no focal neurological deficit, questionable cardiac history (patient and her deny any history of heart attack or cardiac cath that was listed in previous notes). Patient presented to ED with her family and sister for chief complaint of chest congestion and being unable to refill her ventilating inhaler. Based on patient's history, she came to ED because of chest congestion for the last couple of days not associated with cough ,shortness of breath, fever, chills or nasal congestion. She went to [facility] in [place] to refill her Ventolin inhaler that was prescribed at some point last year by Dr. Sanders however they told her that they can refill the medication and she needs to come to the ED for evaluation. Patient has some bilateral upper extremity skin lesion that she referred to as a new onset of psoriasis. We noticed discrepancy in patient's history and called her for confirmation especially with reports from the ED staff that family mentioned dementia-like symptoms. Upon questioning the over the phone, he mention ongoing history of forgetfulness interms of repeat conversations, new onset of tantrum/agitation that has been worsening over the last couple of weeks. He reoprted that patient does not take her medication regularly and thinks that asking pharmacy for refill is the way to get her medication rather than following up with her primary care physician or the reception agent Pasquale Francis MD. He reported that for the last 3 weeks there is no clear known history of medication administration as prior to that patient had a family member who helps her with medication administration. Patient was noticed to have slurred speech due to very dry mouth. Neuro exam is intact On admission vital signs temperature 98.6, pulse 96, blood pressure 174/96, respiratory rate 18 saturating 97% on room air Temperature H&H 12.2/36.8, white blood cell 6.8, sodium 130, corrected sodium 138, sugar 584, BUN/creatinine 23/1.5 at baseline Chest x-ray negative for any cardiopulmonary process Problem list #Hyperosmolar hyperglycemic state due to medication noncompliance #Hypertension, hyperlipidemia #CVA with no focal neurological deficit Plan -Admit to general medical floor -Vitals every shift -Repeat CBCs and BMP in a.m. -IV fluid -We will obtain TSH, vitamin B12, vitamin D, folic acid, HIV -No need for CT head for dementia since patient had recent CT head in March 2017 with chronic vascular disease but no space-occupying lesion -Avoid hospital acquired delirium by avoiding any narcotics, nursing interventions to be clustered, keep quiet during night hours and engage patient with reorientation during daytime -Endocrinology consultation in a.m. -Levemir 10 units twice daily -Accu-Chek and NovoLog sliding scale -Obtain UA and urine toxicology -DVT prophylaxis heparin subcutaneous -Diet carbohydrate with sodium restriction -Code full confirmed by the as well
[2017-06-24 21:59] VITALS: BP 126/80
[2017-06-24 22:05] VITALS: BP 124/62
--- NOTE | 2017-06-25 00:12 | Admission Certification ---
Admission Certification Certification Statement - As attending physician, I certify that at the time of - admission, based on clinical presentation, severity of - symptoms, need for further diagnostic testing and - therapeutic interventions, and risk of adverse outcomes - without in-hospital treatment, in my clinical assessment, - this patient requires an acute hospital stay for a minimum - of two nights or longer. I have also considered psychsocial - factors such as support system, advanced age, financial - issues, cognitive issues, and failed out-patient treatments, - past re-admission history, safety of patient, and lack of - compliance as applicable. Specific rationale supporting this admission is: Hyperglycemia
[2017-06-25 06:42] VITALS: BP 128/76
--- NOTE | 2017-06-25 07:05 | PN- Housestaff ---
[facility] Subjective Follow-up For: Uncontolled DM due medication noncompliance. Subjective: No overnight events. Patient remained afebrile but patient seen and examined this morning. She denied any chest pain, short, nausea, vomiting, chills, fever , abdominal pain dysuria. Patient is noncompliant with medications. We will talk to the shoe parts caser history can arrange home health services for her so that she can take her medications regularly. We will also touch base with family if they can help her. Review of Systems Constitutional: Denies: chills, fever, weakness. EENTM: Reports: no symptoms. Cardiovascular: Denies: chest pain, orthopena, palpitations. Respiratory: Denies: cough, short of breath, sputum production. Gastrointestinal: Reports: constipation. Denies: abdominal pain, diarrhea, melena, nausea, vomiting. Genitourinary: Reports: no symptoms. Musculoskeletal: Reports: no symptoms. Neurological/Psychological: Reports: see HPI. Objective Last 24 Hrs of Vital Signs/I&O Vital Signs Date Time Temp Pulse Resp B/P B/P Pulse O2 O2 Flow FiO2 Mean Ox Delivery Rate 06/25 0642 97.8 78 18 128/76 96 06/24 2159 97.6 88 18 126/80 97 Room Air 06/24 2103 87 20 154/91 97 Room Air 06/24 1911 91 20 135/63 97 Room Air 06/24 1703 98.6 96 18 174/95 97 Room Air Intake & Output 06/25 1600 06/25 0800 06/25 0000 Intake Total 525 100 Output Total 600 350 Balance -75 -250 Intake, IV 525 Intake, Oral 100 Output, Urine 600 350 Patient 193 lb 198 lb Weight Weight Reported by Patient Measurement Method Physical Exam General Appearance: Alert, Cooperative Skin: No Rashes Skin Temp/Moisture Exam: Warm/Dry Sepsis Skin Exam (color): Normal for Ethnicity HEENT: Atraumatic, PERRLA, EOMI Neck: Supple Cardiovascular: Normal S1, Normal S2 Lungs: Clear to Auscultation Abdomen: Soft, No Tenderness Neurological: Normal Speech, Strength at 5/5 X4 Ext, Normal Tone, Sensation Intact Extremities: No Edema, macular spots on both arms. Assessment/Plan Assessment: 71 YO F with PMH of ?CAD (?cardiac cath 2010 showing 60% stenosis of the LAD, cardiac cath in 2010, on dual antiplt, based on previous records but denied by family and patient) , HTN, CVA in 2009, Hlip, T2DM (on ins, h/o non compliance due to financial issues?), Depression presented to the ED with CC of chest tightness. Patients was also contacted to complete the history as there were some questions regarding patients underlying dementia/confabulation. We are seeing the patient for following problems: Uncontrolled DM: -Due to non compliance to medications. patient reported that she couldn't take it due to insurance issues. -Social work consult -Insuline novolog at bed time separate scale and meal time separate scale. -Insulin levemir 10 units bid s/c -Her HbA1c is 13.5 -F/U endo recommendations Possible dementia: -Her vit b12 is low. we will give supplemental vit b12. -We will check her mini mental score -Her TSH is normal -Urine tox is negative -Urine analysis is negative -We will rule outsecondary causes of dementia H/O CAD s/p stent placement: -Continue aspirin and plavix. H/O HYPERLIPIDEMIA: -CONTINUE LIPITOR DVT prophylaxis: Mechanical and s/c heparin Code status: Full code. Problem List: 1. Noncompliance with medication regimen 2. Uncontrolled diabetes mellitus Pain Ratin Pain Location: none Pain Goal: Remain pain free Pain Plan: pain pathway Tomorrow's Labs & Rationales: juan Avitia MD,[facility] 06/25/17 1314: Attending MD Review Statement Attending Statement Attending MD Statement: examined this patient, discuss w/resident/PA/SR. PAYROLL MANAGER, agreed w/resident/PA/SR. PAYROLL MANAGER, reviewed EMR data (avail), discussed with nursing, discussed with case mgmt, amended to note Attending Assessment/Plan: Patient seen and examined. Lying comfortably in bed and not in acute distress. No issues overnight reported by nursing staff. She is alert oriented 3. Conversant appropriately. No focal neurologic deficits. She is unable to clearly states her home diabetic regimen. They have been varying reports as to what transpired with regards to her home insulin regimen. She reports having a close family member who is a nurse. Plan: -Follow recommendations for glucose management per the endocrinology service. -Perform Mini-Mental status examination. -Set up family meeting to discuss outpatient management for the patient. Patient clearly is unable to adequately administer her her diabetic regimen. We will follow-up with the family to set up a safe plan. -Mobilize patient. -Hyponatremia is likely is related to her elevated glucose levels. Patient does have chronic kidney disease stage III. Her creatinine level fluctuates between 1.1 and 1.5. Creatinine on admission was 1.5. We will continue to monitor.
--- NOTE | 2017-06-25 08:22 | Cons- Endocrinology ---
General Information and HPI Consulting Request Date of Consult: 06/25/17 Requested By: medical team Reason for Consult: Uncontrolled diabetes Source of Information: patient, family Exam Limitations: poor historian History of Present Illness: This 71-year-old woman with a known history of diabetes type 2 associated with obesity came back to the emergency room because of some shortness of breath. The patient apparently keeps stopping all her medications including her insulin. When she came to the emergency room her blood sugar was found to be quite high at 584 with evidence of dehydration with a BUN of 23 creatinine 1.5 sodium 130 and potassium 4.4. Anion gap was normal at 12 and CO2 was 25. Patient was seen previously in the hospital with uncontrolled diabetes and evidence of hyperglycemic hyperosmolar state. She came back to the office once to see our nurse practitioner but did not follow-up after that and did not report the high sugars to the office. Allergies/Medications Allergies: Coded Allergies: cat dander (DYSPNEA 11/12/16) crab (HIVES 10/24/16) Home Med List: Atorvastatin Calcium (Lipitor) 40 MG TABLET 1 TAB PO DAILY HLD (Reported) Cholecalciferol (Vitamin D3) 1,000 UNIT TABLET 1 TAB PO DAILY Low vit D Clopidogrel Bisulfate (Clopidogrel) 75 MG TABLET 1 TAB PO DAILY BLOOD THINNER (Reported) Cyanocobalamin (Vitamin B-12) 1,000 MCG TABLET 1 TAB PO DAILY Health Insulin Detemir (Levemir Flextouch) 100 UNIT/ML (3 ML) INSULN.PEN 10 UNITS SC BID DM Metformin HCl 500 MG TABLET 1 TAB PO BID DM Review of Systems Review of Systems Constitutional: Denies: chills, fever. Cardiovascular: Denies: chest pain. Respiratory: Denies: short of breath. GI: Denies: nausea, vomiting. Genitourinary: Denies: dysuria. Skin: Reports: no symptoms. Past History Travel History Traveled to [place] past 21 day No Medical History Blood Transfusion Hx: Yes Neurological: CVA EENT: NONE Cardiovascular: hypertension, hyperlipidemia Respiratory: NONE Gastrointestinal: Crohn's disease Hepatic: NONE Renal: NONE Musculoskeletal: NONE Psychiatric: depression Endocrine: diabetes Blood Disorders: NONE Cancer(s): NONE EMT/PARAMEDIC/Reproductive: NONE Surgical History Surgical History: hysterectomy Family History Relations & Conditions If Any: SISTER FHx: diabetes mellitus BROTHER FH: heart disease Relation not specified for: Adopted Psychosocial History Where Do You Live? Home Services at Home: None Smoking Status: Never Smoked Functional Ability ADLs Independent: dressing, eating, toileting, bathing. Ambulation: independent IADLs Unknown: shopping, housework, finances, food prep, telephone, transportation, medication admin. Exam & Diagnostic Data Last 24 Hrs of Vital Signs/I&O BP 136/72 pulse 88 afebrile Physical Exam General Appearance: alert, awake, comfortable Head: normal appearance Eyes: Bilateral: normal appearance. Neck: normal inspection Respiratory: normal breath sounds, lungs clear Cardiovascular: regular rate/rhythm Gastrointestinal: normal bowel sounds, soft Extremities: normal inspection Assessment/Plan Assessment/Plan This patient has uncontrolled diabetes mellitus type 2 due to noncompliance on her diabetic regimen. She may have underlying dementia as one of the reason she goes off her medications. Suggest continue Levemir 10 units twice a day. Adjust sliding scale NovoLog before meals. Sliding scale NovoLog before meals should be 80-150 give 4 units NovoLog, 151-200 give 5 units NovoLog, 201-250 give 6 units NovoLog, 251-300 give 7 units NovoLog, 301-350 give 8 units NovoLog, 351-400 give 9 units NovoLog. A separate sliding scale NovoLog should be written at bedtime. Sliding scale NovoLog at bedtime should be less than 250 give no insulin, 251-300 give 2 units NovoLog, 301-350 give 3 units NovoLog, 351-400 give 4 units NovoLog. The patient needs a workup for dementia. Of note her B12 level is low at 256. She should be placed on vitamin B12 1000 mcg daily by mouth. Also her vitamin D level is very low and she should be maintained on vitamin D3 at least one thousand micrograms daily. The patient should have a formal mental status evaluation. In addition I would recommend that she be evaluated by psychiatry in view of the reports of her behavior at home. Consult Acknowledgment - Thank you for your consult request.
[2017-06-25 14:28] VITALS: BP 135/83
[2017-06-25 22:06] VITALS: BP 136/78
--- NOTE | 2017-06-26 07:11 | PN- Housestaff ---
[place] 06/26/17 0710: Subjective Follow-up For: Uncontrolled DM due to non compliance Psudohyponatremia (resolved) Subjective: No overnight events. Remained afibrile. Denied chest pain, palpitation, shortness of breath and abdominal pain. Review of Systems Constitutional: Denies: chills, fever, weakness. EENTM: Reports: no symptoms. Cardiovascular: Denies: chest pain, palpitations. Respiratory: Denies: cough, short of breath, sputum production. Gastrointestinal: Denies: abdominal pain, constipation, diarrhea, nausea, vomiting. Genitourinary: Reports: no symptoms. Neurological/Psychological: Reports: no symptoms. Objective Last 24 Hrs of Vital Signs/I&O Vital Signs Date Time Temp Pulse Resp B/P B/P Pulse O2 O2 Flow FiO2 Mean Ox Delivery Rate 06/26 0728 97.6 80 20 144/88 96 Room Air 06/25 2206 98.5 80 20 136/78 98 Room Air 06/25 1642 Room Air Room Air 06/25 1428 98.0 79 17 135/83 95 Room Air Intake & Output 06/26 1600 06/26 0800 06/26 0000 Intake Total 600 Output Total Balance 600 Intake, Oral 600 Physical Exam General Appearance: Alert, Cooperative Skin: No Rashes Skin Temp/Moisture Exam: Warm/Dry Sepsis Skin Exam (color): Normal for Ethnicity HEENT: Atraumatic, PERRLA, EOMI Neck: Supple Cardiovascular: Normal S1, Normal S2 Lungs: Clear to Auscultation Abdomen: Soft, No Tenderness Neurological: Normal Speech, Strength at 5/5 X4 Ext, Normal Tone Extremities: No Edema, Macular spots on both arms Assessment/Plan Assessment: 71 YO F with PMH of ?CAD (?cardiac cath 2010 showing 60% stenosis of the LAD, cardiac cath in 2010, on dual antiplt, based on previous records but denied by family and patient) , HTN, CVA in 2009, Hlip, T2DM (on ins, h/o non compliance due to financial issues?), Depression presented to the ED with CC of chest tightness. Patients was also contacted to complete the history as there were some questions regarding patients underlying dementia/confabulation. We are seeing the patient for following problems: Uncontrolled DM: -Due to non compliance to medications. patient reported that she couldn't take it due to insurance issues. -Social work consult. Speak to family about the patient care if they can manage her medications or figure out if she can afford home healt services. -Insuline novolog at bed time separate scale and meal time separate scale. -Insulin levemir 10 units bid s/c -Her HbA1c is 13.5 -Today her FBS is 168. -F/U endo recommendations Psudohyponatremia:(resolved) -Due to hyperglycemia -Today her Na level is 140 as her blood sugar level is under control. Possible dementia: -Her vit b12 is low. we will give supplemental vit b12. -We will check her mini mental score -Her TSH is normal -Urine tox is negative -Urine analysis is negative -We will consider repeating her CT scan or MRI head as last CT scan showed microvascular changes. H/O CAD s/p stent placement: -Continue aspirin and plavix. H/O HYPERLIPIDEMIA: -continue lipitor DVT prophylaxis: Mechanical and s/c heparin Code status: Full code. Problem List: 1. Uncontrolled diabetes mellitus Pain Ratin Pain Location: none Pain Goal: Remain pain free Pain Plan: pain pathway Tomorrow's Labs & Rationales: none Lupe Avitia MD 06/26/17 1139: Attending MD Review Statement Attending Statement Attending MD Statement: examined this patient, discuss w/resident/PA/ASSISTED LIVING ADMINISTRATOR, agreed w/resident/PA/ASSISTED LIVING ADMINISTRATOR, reviewed EMR data (avail), discussed with nursing, discussed with case mgmt, amended to note Attending Assessment/Plan: Patient seen and examined. Resting comfortably not in any acute distress. No issues overnight. No new complaints. No issues reported by nursing staff. Blood glucose levels are acceptable. We did have a conversation with the patient today. Family members expected to come in around 1 PM today for discussions about managing the patient's medication regimen at home. Also received discharge plan can be put in place patient will be discharged home. Endocrinology follow-up appreciated. There was concern the patient was slurring of speech. On examination this morning patient is alert and oriented 3. Her speech is intact with no slurring. She occasionally does have to pause to find her words. Mini-Mental state exam shows some degree of cognitive impairment. Probably related to early dementia. She has no focal neurologic deficit on examination. During previous hospitalization there was concern of slurring speech at that time. She was seen by the neurology service then. No further brain imaging was recommended at that time. A CT scan showed no evidence of an acute stroke. We will defer further imaging for now. We will in the meantime continue to manage her risk factors which include control of her diabetes, antiplatelet therapy with Plavix, lipid-lowering therapy with Lipitor. She is not on a blood pressure medication currently. Apparently she was on diltiazem but this was last prescribed exactly 1 year ago. We will follow-up with family regarding any issues with blood pressure control in the outpatient setting. If she has no issues may consider starting patient on lisinopril 5 mg daily to be titrated as needed in the outpatient setting.
[2017-06-26 07:28] VITALS: BP 144/88
--- NOTE | 2017-06-26 07:43 | PN- Diabetes ---
Assessment/Plan Diabetes Assessment: Patient states that she feels okay. She is eating okay. She is presently on Levemir 10 units twice a day and sliding scale NovoLog beginning with 4 units before her meals with a separate sliding scale at bedtime. Fingerstick blood sugars yesterday were 210 before breakfast, 203 before lunch, 89 before dinner, and 189 at bedtime. Fingerstick blood sugar before breakfast this morning is 169. Plan: Suggest continue the present insulin. The patient did not have any blood work done yesterday and this needs to be followed up on today. The patient needs further evaluation for dementia. She also has slurred speech. Previous CT scan of the head shows microvascular ischemic disease. This may need to be repeated or consider an MRI. The patient needs a mini mental status exam documented. Subjective Subjective: Feels okay Review of Systems Constitutional: Denies: chills, fever. Cardiovascular: Denies: chest pain. Respiratory: Denies: cough, short of breath. Gastrointestinal: Denies: abdominal pain, nausea, vomiting. Skin: Reports: no symptoms. Objective Last 24 Hrs of Vital Signs/I&O Vital Signs Date Time Temp Pulse Resp B/P B/P Pulse O2 O2 Flow FiO2 Mean Ox Delivery Rate 06/27 727 97.6 80 20 144/88 96 Room Air 06/25 220 98.5 80 20 136/78 98 Room Air 06/25 1642 Room Air Room Air 06/25 1428 98.0 79 17 135/83 95 Room Air Intake & Output 06/26 0806/26 0000 06/25 1600 Intake Total 600 950 Output Total Balance 600 950 Intake, IV 150 Intake, Oral 600 800 Vital Signs Date Time Temp Pulse Resp B/P B/P Pulse O2 O2 Flow FiO2 Mean Ox Delivery Rate 06/27 727 97.6 80 20 144/88 96 Room Air 06/25 2206 98.5 80 20 136/78 98 Room Air 06/25 1642 Room Air Room Air 06/25 1428 98.0 79 17 135/83 95 Room Air Intake & Output 06/26 0000 06/25 1600 Intake Total 600 950 Output Total Balance 600 950 Intake, IV 150 Intake, Oral 600 800 Physical Exam General Appearance: alert, awake, comfortable Head: normal appearance Neck: normal inspection Respiratory: normal breath sounds Cardiovascular: regular rate/rhythm Current Medications: Current Medications Sig/Huy Start time Last Medication Dose Route Stop Time Status Admin Aspirin 81 MG DAILY 06/25 0900 AC 06/25 PO 0831 Atorvastatin Calcium 40 MG 1700 06/25 1700 AC 06/25 PO 1647 Bisacodyl 5 MG DAILY 06/25 0918 AC 06/25 PO 1025 Cholecalciferol 1,000 IU DAILY 06/25 0937 DC PO Cholecalciferol 1,000 IU DAILY 06/25 0900 AC 06/25 PO 0832 Clopidogrel Bisulfate 75 MG DAILY 06/25 09 AC 06/25 PO 0831 Cyanocobalamin 1,000 MCG DAILY 06/25 0935 AC 06/25 PO 1025 Heparin Sodium 5,000 UNIT Q8 06/25 06 AC 06/26 (Porcine) SC 0542 Insulin Aspart 0 AT BEDTIME 06/25 2100 AC SC Insulin Aspart 0 TIDAC 06/25 1200 AC 06/26 SC 0745 Insulin Aspart 0 TIDAC 06/25 0800 DC 06/25 SC 0831 Insulin Detemir 10 UNITS BID 06/25 0900 AC 06/25 SC 2126 Melatonin 5 MG ONCE ONE 06/25 213 DC 06/25 PO 06/25 2131 2130 Patient Medication 1 ED ONE ONE 06/25 1630 DC Teaching ED 06/25 1631 Polyethylene Glycol 17 GM DAILY 06/25 917 AC 06/25 PO 1025 Sodium Chloride 1,000 ML .[id number] 06/24 2245 DC 06/24 IV 2309 Findings Pertinent Lab/[place] Results: Laboratory Tests 06/26 06/25 0640 1000 Chemistry Sodium Pending Cancelled Potassium Pending Cancelled Chloride Pending Cancelled Carbon Dioxide Pending Cancelled Anion Gap Pending Cancelled BUN Pending Cancelled Creatinine Pending Cancelled BUN/Creatinine Ratio Pending Cancelled Hematology CBC w Diff Cancelled WBC Cancelled RBC Cancelled Hgb Cancelled Hct Cancelled MCV Cancelled MCH Cancelled MCHC Cancelled RDW Cancelled Plt Count Cancelled MPV Cancelled
[2017-06-26] MEDS ORDERED: LIPITOR40 M1 PO (09:28)
[2017-06-26] MEDS ORDERED: METFORMIN HCL500 M3 PO (13:37)
--- NOTE | 2017-06-26 13:44 | Patient Discharge Instructions ---
Discharge Instructions General Discharge Information You were seen/treated for: Uncontrolled diabetes mellitus due to noncompliance to medication. Psudohyponatremia Watch for these problems: Altered mental status, frequent urenation, thirsty more than usual, light headedness, headache, tremors, anxiety, excessive sweating and loss of consciuosness. If you experience any of these symptoms call to pcp or come to ED. Special Instructions: Follow up with pcp in one week. Discuss if you need antihypertensive medications. Follow up with endocrinology for DM medication adjustmenmt. Compliant to your medications and eat meal after diabetes medication. Don't skip meal after medication. Check blood sugar level twice a day and make a record before going to housing grant analyst office. Diet Recommended Diet: Diabetic Activity Activity Self Limited: Yes Acute Coronary Syndrome Inclusion Criteria At DC or during hospital stay patient has or had the following: ACS DIAGNOSIS No Discharge Core Measures Meds if any: Prescribed or Continued at Discharge Meds if any: NOT Prescribed or Continued at Discharge Congestive Heart Failure Inclusion Criteria At DC or during hospital stay patient has or had the following: CHF DIAGNOSIS No Discharge Core Measures Meds if any: Prescribed or Continued at Discharge Meds if any: NOT Prescribed or Continued at Discharge Cerebrovascular accident Inclusion Criteria At DC or during hospital stay patient has or had the following: CVA/TIA Diagnosis No Discharge Core Measures Meds if any: Prescribed or Continued at Discharge Meds if any: NOT Prescribed or Continued at Discharge Venous thromboembolism Inclusion Criteria VTE Diagnosis No VTE Type NONE VTE Confirmed by (Test) NONE Discharge Core Measures - Per Current guidelines, there needs to be overlap - treatment for the first 5 days of Warfarin therapy. - If discharged on Warfarin prior to 5 days of - overlap therapy, the patient will need to be - assessed for post discharge needs including - *Post discharge parental anticoagulation - *Warfarin and/or parental anticoagulation education - *Follow up date to check INR post discharge At least 5 days overlap therapy as Inpatient No Meds if any: Prescribed or Continued at Discharge Note: Overlap Therapy is Warfarin and Anticoagulant Meds if any: NOT Prescribed or Continued at Discharge
[2017-06-26 13:46] VITALS: BP 138/72
[2017-06-26] MEDS ORDERED: VITAMIN B-121000 MC3 PO (13:56)
[2017-06-26] MEDS ORDERED: VITAMIN D31000 UNI2 PO (13:56)
--- NOTE | 2017-06-26 14:03 | Discharge Summary ---
Visit Information Visit Dates Admission Date: 06/24/17 Discharge Date: 06/26/17 Hospital Course Course Attending Physician: Lupe Avitia MD Primary Care Physician: Ayana TONEY[place] [place]: 71 YO F with PMH of ?CAD (?cardiac cath 2010 showing 60% stenosis of the LAD, cardiac cath in 2010, on dual antiplt, based on previous records but denied by family and patient) , HTN, CVA in 2009, Hlip, T2DM (on ins, h/o non compliance due to financial issues?), Depression presented to the ED with CC of chest tightness. Patients was also contacted to complete the history as there were some questions regarding patients underlying dementia/confabulation. ED course: Vitals: Temperature 98.6, pulse 96, respiration rate 18, blood pressure 170/95, oxygen saturation 97% on room air. Labs: WBC count 6.0, hemoglobin 12.2, hematocrit 36.8, platelet count 224, sodium 130, potassium 4.4, BUN 23, creatinine 1.5, glucose 584, BUNs/creatinine ratio 15.3, lactic acid 12, GFR 34, lactic acid 1.4, calcium 9.7, AST 12, ALT 23 Uncontrolled DM: Patient was admitted with uncontrolled diabetes mellitus due to noncompliance to medications. Endocrinology consult was obtained and recommendations were followed. Patient was given insulin Levemir 10 units twice a day and insulin NovoLog according to sliding scale on mealtime and at bedtime separately. Her blood sugar level was monitored regularly. During the hospital stay her blood sugar level remained under control. She was given diabetic diet. Considering patient's HbA1c 13.5 that showed that patient was not compliant with medication. Social consult was obtained and family meeting front arranged. Medication noncompliance was discussed with family. Her father and 2 daughters were present in the family meeting. Her daughter made it showed that she will take care of her for her medications. The daughter agreed that case repairer can arrange home health services just to make sure that in the absence of family members patient is compliant with the medication. As her daughter mentioned that it will be difficult for her to inject insulin during mealtime according to sliding scale, we spoke to Dr. Francis if he can give us some alternative to light. Pasquale Francis MD recommended that patient can take metformin 500 mg twice a day and continue Levemir 10 units twice a day. Her NovoLog insulin according to sliding scale was discontinued then and she was prescribed metformin 500 mg twice a day. Patient was instructed to check her blood sugar level twice a day and keep a record of it before she going to endocrinology office. Patient was advised to follow endocrinology as outpatient for further recommendations and antidiabetic medication adjustment. Psudohyponatremia: On admission patient's sodium level was low due to pseudohyponatremia considering her high blood sugar level. After we controlled her blood sugar effectively heart sodium level improved. Possible dementia: Considering patient's forgetfulness it was considered that patient having early dementia signs. Mini-Mental status score was 27 and her Montral score was 23. Secondary causes of dementia ever ruled out. Her TSH level was within normal limits. Her vitamin B12 level was low and she was given vitamin B12 supplementation and her vitamin D was also low that's what patient was started on vitamin D supplement. Her last CT scan head was showing microvascular changes in brain. H/O CAD s/p stent placement: To continue her Plavix and she was also given aspirin. As patient was not taking aspirin at home so after the discharge it was discontinued. H/O Hyperlipidemia: Continued lipitor. DVT prophylaxis: Mechanical and s/c heparin Code status: Full code. Allergies: Coded Allergies: cat dander (DYSPNEA 11/12/16) crab (HIVES 10/24/16) Pertinent Lab Results: Chest x-ray on 06/24/2017: IMPRESSION: No acute cardiopulmonary disease compared to 03/20/2017. Sodium 140, potassium 3.7, BUN 14, creatinine 1.2, GFR 44 Disposition Summary Disposition Principal Diagnosis: Uncontrolled diabetes due to medication noncompliance Pseudohyponatremia Possible dementia Additional Diagnosis: History of CAD status post stent placement History of hyperlipidemia Discharge Disposition: home health services Discharge Instructions General Discharge Information Code Status: Full Code Patient's Diet: Diabetic diet Patient's Activity: Self-limited Follow-Up Instructions/Appts: Follow up with pcp in one week. Discuss if you need antihypertensive medications. Follow up with endocrinology for DM medication adjustmenmt. Compliant to your medications and eat meal after diabetes medication. Don't skip meal after medication. Check blood sugar level twice a day and make a record before going to floor polisher office. Medications at Discharge Discharge Medications: Stop taking the following medications: Insulin Aspart, Recombinant (Novolog Flexpen) 100 UNIT/ML INSULN.PEN Inject into fatty tissue 3 TIMES DAILY BEFORE MEALS Qty = 15 Continue taking these medications: Clopidogrel Bisulfate (Clopidogrel) 75 MG TABLET 1 Tablet ORAL DAILY Qty = 30 Comments: Last Taken: 06/26/17 Time: 8:00 AM Insulin Detemir (Levemir Flextouch) 100 UNIT/ML (3 ML) INSULN.PEN 10 Units Inject into fatty tissue TWICE DAILY Qty = 15 Comments: Last Taken: 06/26/17 Time: 8:00 AM Atorvastatin Calcium (Lipitor) 40 MG TABLET 1 Tablet ORAL DAILY Qty = 30 Comments: Last Taken: 06/25/17 Time: 5:00 PM Start taking the following new medications: Cyanocobalamin (Vitamin B-12) 1,000 MCG TABLET 1 Tablet ORAL DAILY Qty = 30 No Refills Comments: Last Taken: 06/26/17 Time: 8:00 AM Cholecalciferol (Vitamin D3) 1,000 UNIT TABLET 1 Tablet ORAL DAILY Qty = 30 No Refills Comments: Last Taken: 06/26/17 Time: 8:00 AM Metformin HCl (Metformin HCl) 500 MG TABLET 1 Tablet ORAL TWICE DAILY Qty = 30 No Refills Comments: NOT GIVEN IN HOSPITAL Copies To: Lyudmila Butts; Penny MOSLEY,Pasquale Sam Attending MD Review Statement Documenting Attending: Lupe Avitia MD Other Findings: Family meeting took place with the patient, , daughters and social insurance analyst. Daughter stated she will put measures in place to ensure that patient's medications are monitored and administered to her. She will be taking charge of ensuring that her mother gets her medications as prescribed. To simplify her regimen of sliding scale coverage has been discontinued. She will be long- acting insulin and an oral hypoglycemic agent.
== END 2017-06-26 15:18 | disposition home health service (06) | DRG 637 ==
LOC: ERH 17:00 → ERHI 19:30 → 2NB 19:30 → ENRESERV 20:15 → ENTRNSPT 21:27 → 2NB 21:28 → EDTRNSPTSTS 21:31 → EDTRNSPT 21:31 → 2NB 21:34 → CMPTRNSPT 21:42 → 2NB 06-25 08:17 → ENPENDDIS 06-26 14:09 → ENTRNSPT 06-26 14:39 → CMPTRNSPT 06-26 14:46 → 2NB 06-26 15:18
PROVIDERS: Physician Assistant
DX: E11.65 Type 2 diabetes mellitus with hyperglycemia (principal); E11.00 Type 2 diabetes mellitus with hyperosmolarity without nonketotic hyperglycemic-hyperosmolar coma (NKHHC); K50.90 Crohn's disease, unspecified, without complications; E11.22 Type 2 diabetes mellitus with diabetic chronic kidney disease; E87.1 Hypo-osmolality and hyponatremia; F03.90 Unspecified dementia, unspecified severity, without behavioral disturbance, psychotic disturbance, mood disturbance, and anxiety; Z91.14 Patient's other noncompliance with medication regimen; Z79.4 Long term (current) use of insulin; E78.5 Hyperlipidemia, unspecified; E53.8 Deficiency of other specified B group vitamins; I25.10 Atherosclerotic heart disease of native coronary artery without angina pectoris; E66.9 Obesity, unspecified; Z68.38 Body mass index [BMI] 38.0-38.9, adult; I12.9 Hypertensive chronic kidney disease with stage 1 through stage 4 chronic kidney disease, or unspecified chronic kidney disease; N18.3 Chronic kidney disease, stage 3 (moderate); Z91.120 Patient's intentional underdosing of medication regimen due to financial hardship; Z86.73 Personal history of transient ischemic attack (TIA), and cerebral infarction without residual deficits; F32.9 Major depressive disorder, single episode, unspecified; Z98.61 Coronary angioplasty status
CPT/HCPCS: 2NBSP; 36592; 71046; 80307; 81001; 82436; 87389; 87804; 87804-59; 93005; 93010; 96360; 96361; 99291; J1644; J1815; J3490; J7040

== ENCOUNTER 2017-07-11 21:18 | Inpatient (IN) | payer OTHER ==
[~2017-07-11] VITALS: Ht 160 cm; Wt 77.8 kg
[~2017-07-11 21:18] MED LIST changes: +LIPITOR40 M1 PO; +METFORMIN HCL500 M3 PO; +VITAMIN B-121000 MC3 PO; +VITAMIN D31000 UNI2 PO
--- NOTE | 2017-07-11 21:50 | ED AMS/SEIZURE/WEAK/DIZZY ---
History of Present Illness General Chief Complaint: Altered Mental Status Stated Complaint: AMS SINCE 3PM Source: family, old records Exam Limitations: confusion Vital Signs & Intake/Output Vital Signs & Intake/Output Vital Signs Date Time Temp Pulse Resp B/P B/P Pulse O2 O2 Flow FiO2 Mean Ox Delivery Rate 07/11 2120 96.4 100 18 194/101 96 Room Air Allergies Coded Allergies: cat dander (DYSPNEA 11/12/16) crab (HIVES 10/24/16) Reconcile Medications Atorvastatin Calcium (Lipitor) 40 MG TABLET 1 TAB PO DAILY HLD (Reported) Cholecalciferol (Vitamin D3) 1,000 UNIT TABLET 1 TAB PO DAILY Low vit D Clopidogrel Bisulfate (Clopidogrel) 75 MG TABLET 1 TAB PO DAILY BLOOD THINNER (Reported) Cyanocobalamin (Vitamin B-12) 1,000 MCG TABLET 1 TAB PO DAILY Health Insulin Detemir (Levemir Flextouch) 100 UNIT/ML (3 ML) INSULN.PEN 10 UNITS SC BID DM Metformin HCl 500 MG TABLET 1 TAB PO BID DM Triage Note: PT FROM HOME C/O AMS SINCE 2029 PER PTS DAUGHTERS. PTS DAUGHTER STATES SHE CAME HOME FROM WORK TODAY AROUND 2029 AND FOUND PTS TO BE AMS. PT IS IN TRIAGE A&0X1. PT UNABLE TO TELL HER BIRTHDAY OR LOCATION. PT IS NIH STROKE SCALE NEGATIVE. PTS BP ELEVATED 194/100, PT DENIES LORENZANA, BLURRY VISION, LIGHTHEADEDNESS. PT IN WHEELCHAIR SEEMS CONFUSED. PT IS A DIABETIC BSG IN TRIAGE 257. PTS DAUGHTER STATED THAT PT WAS RECENTLY MEDICATED WITH 12 UNITS LEVEMIR. PTS DAUGHTER UNSURE IF VISITING RN WAS ABLE TO MAKE IT THE HOUSE TODAY TO ADMINISTER MEDICATION. Triage Nurses Notes Reviewed? yes HPI: Patient was in her usual state of health. Daughter states that she went out this afternoon and when she came back her mother was very confused. Daughter states that the patient is usually alert and oriented 3. Currently the patient is alert and oriented to name only. Daughter states that she checked her sugar when she got home it was elevated so she gave her her evening dose of insulin and metformin. Her sugar is coming down however the patient remains confused. Past History Travel History Traveled to [place] past 21 day No Medical History Any Pertinent Medical History? 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 No Review of Systems Review of Systems Constitutional: Reports: see HPI. Neurological/Psychological: Reports: see HPI. Physical Exam Physical Exam General Appearance: well developed/nourished, awake, anxious, moderate distress Head: atraumatic, normal appearance Eyes: Bilateral: PERRL, EOMI. Ears, Nose, Throat: normal pharynx, normal ENT inspection, hearing grossly normal Neck: normal inspection, supple, full range of motion Respiratory: normal breath sounds, chest non-tender, no respiratory distress, lungs clear Cardiovascular: regular rate/rhythm, normal peripheral pulses Gastrointestinal: normal bowel sounds, soft, non-tender, no organomegaly Back: normal inspection, normal range of motion Extremities: normal range of motion, pelvis stable Neurologic/Psych: no motor/sensory deficits, awake, normal mood/affect Skin: intact, normal color, warm/dry Lymphatic: no anterior cervical robinson Comments: Patient has no motor or sensory deficits. Patient is showing evidence of acute delirium. Patient is not showing signs of an acute stroke. Core Measures ACS in differential dx? No CVA/TIA Diagnosis No Sepsis Present: No Sepsis Focused Exam Completed? No Progress Differential Diagnosis: alcohol intoxication, CVA/stroke, drug intoxication, encephalitis, electrolyte imbalance, intracranial Hem., intracranial mass/tumor Plan of Care: Orders Procedure Date/time Status Heart Healthy Diet 07/12 B Active LACTIC ACID 07/12 0049 Active ED Holding Orders 07/11 2328 Active Admit to inpatient 07/11 2328 Active Vital Signs 07/11 2328 Active Code Status 07/11 2328 Active Straight Cath 07/11 2148 Active CULTURE,URINE 07/11 2148 Active BLOOD CULTURE 07/11 2148 Active URINALYSIS 07/11 2148 Complete TROPONIN LEVEL 07/11 2148 Complete LACTIC ACID 07/11 2148 Complete COMPREHENSIVE METABOLIC PANEL 07/11 2148 Complete CBC WITHOUT DIFFERENTIAL 07/11 2148 Complete EKG 07/11 2148 Active Laboratory Tests 07/11/172207: Anion Gap 16, Estimated GFR 30 L, BUN/Creatinine Ratio 15.9, Glucose 249 H, Lactic Acid 2.0, Calcium 9.4, Total Bilirubin 1.0, AST 14, ALT 26, Alkaline Phosphatase 70, Troponin I < 0.01, Total Protein 7.3, Albumin 4.1, Globulin 3.2, Albumin/Globulin Ratio 1.3, CBC w Diff NO MAN DIFF REQ, RBC 4.53, MCV 84.3, MCH 28.0, MCHC 33.3, RDW 13.9, MPV 10.9 H, Gran % 70.9, Lymphocytes % 22.9, Monocytes % 4.0, Eosinophils % 1.5, Basophils % 0.7, Absolute Granulocytes 5.8, Absolute Lymphocytes 1.9, Absolute Monocytes 0.3, Absolute Eosinophils 0.1, Absolute Basophils 0.1, Urinalysis LIGHT H, Urine Color YEL, Urine Clarity HAZY H, Urine pH 6.0, Ur Specific [place] 1.025, Urine Protein 30 H, Urine Ketones 15 H, Urine Nitrite NEG, Urine Bilirubin NEG, Urine Urobilinogen 0.2, Ur Leukocyte Esterase NEG, Ur Microscopic SEDIMENT EXAMINED, Urine RBC 1-3, Urine WBC 1-3 H, Ur Epithelial Cells MANY H, Urine Bacteria FEW H, Urine Hemoglobin SMALL H, Urine Glucose >=1000 H Microbiology 07/11 2234 BLOOD: Blood Culture - RECD 07/12 2207 URINE ROUT: Urine Culture - RECD 07/12 2207 BLOOD: Blood Culture - RECD Diagnostic Imaging: Viewed by Me: Radiology Read, CT Scan. Discussed w/RAD: Radiology Read, CT Scan. Radiology Impression: PATIENT: JOSE BROWN PRESENT AGE: 71 PATIENT ACCOUNT NO: [id number] : 46 LOCATION: [facility] ORDERING PHYSICIAN: Pasquale Cheek MD SERVICE DATE: 07/11/17 EXAM TYPE: CAT - CT HEAD WO IV CONTRAST EXAMINATION: CT HEAD WITHOUT CONTRAST CLINICAL INFORMATION: Acute delirium COMPARISON: 03/20/2017 CT scan TECHNIQUE: Contiguous axial imaging was performed from the skull base to vertex without intravenous administration of contrast. DLP: 620.91 mGy-cm FINDINGS: There is mild loss of brain volume with associated dilatation of CSF space, similar to prior exam and can be considered within normal range for patient's age. There are patchy bilateral periventricular and deep white matter hypodensities, nonspecific findings and could represent chronic ischemic changes of the small vessel disease. There is an old lacunar infarct in the left basal ganglia, similar to the prior exam. Atherosclerotic calcifications of the cavernous parts of bilateral internal carotid arteries are noted. There is no evidence of acute intracranial hemorrhage or territorial infarction. No abnormal mass effect or midline shift is seen. Perez to white matter differentiation is well preserved. No extra-axial fluid collections are identified. The ventricles are normal in size. The osseous structures and soft tissues are normal. The mastoid air cells and visualized portions of the paranasal sinuses are well aerated. Prior bilateral cataract surgeries. IMPRESSION: No acute intracranial pathology. Chronic ischemic changes of the small vessel disease. Atherosclerosis. DICTATED BY: Jamir Minor MD DATE/TIME DICTATED:07/11/172231 RISK ENGINEER: PAVEL DATE/TIME TRANSCRIBED:07/11/172231 CONFIDENTIAL, DO NOT COPY WITHOUT APPROPRIATE AUTHORIZATION. <Electronically signed in Other Vendor System> SIGNED BY: Jamir Minor MD 07/11/172241 Initial ED EKG: SINUS TACHYCARDIA, NO ISCHEMIC CHANGES Prior EKG: unchanged Departure Departure Disposition: STILL A PATIENT Condition: Stable Clinical Impression Primary Impression: Acute delirium Referrals: Lyudmila Butts (PCP/Family) Departure Forms: Customer Survey General Discharge Information Admission Note Spoke With: Anastasia Nuñez MD Documentation of Exam: Documentation of any treatments & extenuating circumstances including Concerns Regarding Discharge (functional status, medication knowledge or non-compliance, living conditions, etc.) that warrant an admission rather than observation: [ HOLD METFORMIN, NEUROLOGY/GERIENTOLOGY CONSULT, HOLD ANY MEDS THAT CAUSE DELERIUM, RENAL CONSULT FOR WORSENING RENAL FUNCTION.]
[2017-07-11 22:25] LABS: ABSOLUTE BASOPHIL COUNT 0.1 /CUMM (0.0-0.2); ABSOLUTE EOSINOPHIL COUNT 0.1 /CUMM (0.0-0.7); ABSOLUTE GRANULOCYTE CT 5.8 /CUMM (1.4-6.5); ABSOLUTE LYMPH COUNT 1.9 /CUMM (1.2-3.4); ABSOLUTE MONOCYTE COUNT 0.3 /CUMM (0.10-0.60); BASOPHIL % 0.7 % (0.0-2.0); EOSINOPHIL % 1.5 % (0-5); GRANULOCYTE % 70.9 % (42.2-75.2); HEMATOCRIT 38.2 % (37-47); MEAN CORPUSCULAR HGB CONC 33.3 G/DL (33.0-37.0); MEAN CORPUSCULAR VOLUME 84.3 FL (81.0-99.0); MEAN PLATELET VOLUME 10.9 FL (7.4-10.4); PLATELET COUNT 203 /CUMM (130-400); RBC DISTRIBUTION WIDTH 13.9 % (11.5-14.5); RED BLOOD CELL CT 4.53 /CUMM (4.20-5.40); WHITE BLOOD CELL COUNT 8.3 /CUMM (4.8-10.8)
--- NOTE | 2017-07-11 22:42 | CT SCAN REPORT ---
EXAMINATION: CT HEAD WITHOUT CONTRAST CLINICAL INFORMATION: Acute delirium COMPARISON: 03/20/2017 CT scan TECHNIQUE: Contiguous axial imaging was performed from the skull base to vertex without intravenous administration of contrast. DLP: 620.91 mGy-cm FINDINGS: There is mild loss of brain volume with associated dilatation of CSF space, similar to prior exam and can be considered within normal range for patient's age. There are patchy bilateral periventricular and deep white matter hypodensities, nonspecific findings and could represent chronic ischemic changes of the small vessel disease. There is an old lacunar infarct in the left basal ganglia, similar to the prior exam. Atherosclerotic calcifications of the cavernous parts of bilateral internal carotid arteries are noted. There is no evidence of acute intracranial hemorrhage or territorial infarction. No abnormal mass effect or midline shift is seen. Perez to white matter differentiation is well preserved. No extra-axial fluid collections are identified. The ventricles are normal in size. The osseous structures and soft tissues are normal. The mastoid air cells and visualized portions of the paranasal sinuses are well aerated. Prior bilateral cataract surgeries. IMPRESSION: No acute intracranial pathology. Chronic ischemic changes of the small vessel disease. Atherosclerosis.
--- NOTE | 2017-07-12 00:33 | RADIOLOGY REPORT ---
EXAMINATION: XR PORTABLE CHEST CLINICAL INFORMATION: Confusion. COMPARISON: 06/24/2017 TECHNIQUE: Portable frontal view of the chest was obtained. FINDINGS: The lungs are well expanded. There is no focal consolidation, edema, or effusion. No pneumothorax. The cardiomediastinal silhouette is within normal limits. No acute osseous abnormality. IMPRESSION: No acute pulmonary findings.
--- NOTE | 2017-07-12 00:36 | History & Physical ---
SpencerNancy 07/12/17 0027: General Information and HPI MD Statement: I have seen and personally examined JOSE ABRAHAM and documented this H&P. The patient is a 71 year old F who presented with a patient stated chief complaint of [AMS]. Source of Information: patient, old records Exam Limitations: confusion History of Present Illness: Ms. Abraham is a 71yo F w/ PMH of Diabetes, HTN, HLD, Hx of CVA, brought to ER by daughter regarding sudden onset of AMS. Patient and her recently moved to her daughter's place after lost her dwelling due to not paying the bills for a long time per patient's daughter. Patient was previously seen in [place] for uncontrolled diabetes, with metabolic encephalopathy/dementia, and over the past year, despite patient's been depositing money in their bank account, patient had forgotten to pay the bills although she thought she did. After moving to the daughter's place, the daughter endorsed that patient had daily episodes dementia leg activities including screaming/non-conversational/ forgetfulness of recent and remote events/walking around without talking to family members. However patient's appetite and dietary habits have been regular and did not miss any of her meals. Tonight after the daughter came back from work, the daughter found the patient to be altered mental status, not comprehensive to questions/commands, appeared to be confused. During the ER, patient was NIH stroke scale negative, and AAO 1. During our clinical interaction, patient was alert and oriented to current year/month, however was not able to tell her birthday, identify her daughters, or know where she is. During the physical examination, patient appeared to be able to follow simple commands, however was having problem with complex commands including finger to nose test, and pump flipping test. Patient was also reacting slowly to commands , however denied any particular discomfort at this moment, and had no acute episode of delirium in appearance. Patient was previously admitted to [facility] for history of CVA as well, however she is only currently on Plavix instead of a dual antiplatelet therapy possibly secondary to previous GI bleeding episodes and aspirin was stopped. -Smoking: Never -Alcohol: Never -Rec Drugs: Never Allergies/Medications Allergies: Coded Allergies: cat dander (DYSPNEA 11/12/16) crab (HIVES 10/24/16) Home Med list Atorvastatin Calcium (Lipitor) 40 MG TABLET 1 TAB PO DAILY HLD (Reported) Cholecalciferol (Vitamin D3) 1,000 UNIT TABLET 1 TAB PO DAILY Low vit D Clopidogrel Bisulfate (Clopidogrel) 75 MG TABLET 1 TAB PO DAILY BLOOD THINNER (Reported) Cyanocobalamin (Vitamin B-12) 1,000 MCG TABLET 1 TAB PO DAILY Health Insulin Detemir (Levemir Flextouch) 100 UNIT/ML (3 ML) INSULN.PEN 10 UNITS SC BID DM Metformin HCl 500 MG TABLET 1 TAB PO BID DM Past History Travel History Traveled to [place] past 21 day No Medical History Neurological: CVA EENT: NONE Cardiovascular: hypertension, hyperlipidemia Respiratory: NONE Gastrointestinal: Crohn's disease Hepatic: NONE Renal: NONE Musculoskeletal: NONE Psychiatric: depression Endocrine: diabetes Blood Disorders: NONE Cancer(s): NONE 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 Ambulation: independent IADLs Unknown: shopping, housework, finances, food prep, telephone, transportation, medication admin. Review of Systems Review of Systems Constitutional: Reports: see HPI. Exam & Diagnostic Data Last 24 Hrs of Vital Signs/I&O Vital Signs Date Time Temp Pulse Resp B/P B/P Pulse O2 O2 Flow FiO2 Mean Ox Delivery Rate 07/12 0045 97.8 88 18 148/64 96 Room Air 07/11 2121 96.4 100 18 194/101 96 Room Air Intake & Output 07/12 0800 07/12 0000 07/11 1600 Intake Total Output Total 200 Balance -200 Output, Urine 200 Patient 90.718 kg Weight Weight Estimated Measurement Method Physical Exam General Appearance Alert, Cooperative, No Acute Distress, oriented to time, not to place/person Skin No Significant Lesion, chronic skin patches on arms, no acute changes per family Skin Temp/Moisture Exam: Warm/Dry Sepsis Skin Exam (color): Normal for Ethnicity HEENT Atraumatic, PERRLA, EOMI, difficulty on following complex commands in [id number] test, palm flipping, however, could achieve with guidance, Mild right horizontal nystagmus Neck Supple, No JVD Cardiovascular Regular Rate Lungs Clear to Auscultation, Normal Air Movement Abdomen Normal Bowel Sounds, Soft, No Tenderness Neurological Normal Gait, Strength at 5/5 X4 Ext, Sensation Intact, Reflexes 2+, She is conversational and followed most simple commands, however did not appear to follow complex commands/actions like [id number]. Sometime may need repetitive guidance to achive the right motion. Mild imbalance while walking but at baseline per family members Romberg negative Extremities No Cyanosis, No Edema, Normal Pulses Last 24 Hrs of Labs/[place]: Laboratory Tests 07/12/17 0119: Lactic Acid 1.5 07/11/172207: Anion Gap 16, Estimated GFR 30 L, BUN/Creatinine Ratio 15.9, Glucose 249 H, Lactic Acid 2.0, Calcium 9.4, Total Bilirubin 1.0, AST 14, ALT 26, Alkaline Phosphatase 70, Troponin I < 0.01, Total Protein 7.3, Albumin 4.1, Globulin 3.2, Albumin/Globulin Ratio 1.3, CBC w Diff NO MAN DIFF REQ, RBC 4.53, MCV 84.3, MCH 28.0, MCHC 33.3, RDW 13.9, MPV 10.9 H, Gran % 70.9, Lymphocytes % 22.9, Monocytes % 4.0, Eosinophils % 1.5, Basophils % 0.7, Absolute Granulocytes 5.8, Absolute Lymphocytes 1.9, Absolute Monocytes 0.3, Absolute Eosinophils 0.1, Absolute Basophils 0.1, Urinalysis LIGHT H, Urine Color YEL, Urine Clarity HAZY H, Urine pH 6.0, Ur Specific [place] 1.025, Urine Protein 30 H, Urine Ketones 15 H, Urine Nitrite NEG, Urine Bilirubin NEG, Urine Urobilinogen 0.2, Ur Leukocyte Esterase NEG, Ur Microscopic SEDIMENT EXAMINED, Urine RBC 1-3, Urine WBC 1-3 H, Ur Epithelial Cells MANY H, Urine Bacteria FEW H, Urine Hemoglobin SMALL H, Urine Glucose >=1000 H Microbiology 07/11 2234 BLOOD: Blood Culture - RECD 07/12 2207 URINE ROUT: Urine Culture - RECD 07/12 2207 BLOOD: Blood Culture - RECD Diagnostic Data EKG Results Sinus tachy Assessment/Plan Assessment: On admission, Vitals: Afebrile, tachycardia 100, BP 194/101, 96% RA -CBC: unremarkable -BMP: no AG, elevated Cr 1.7 (baseline 1.0-1.5), glucose 249 -UA/Microbiology: -ve for UTI however urine glucose >1000 -Misc: -CXR: No acute -Head CT: no acute. Chronic vessel change -EKG: NSR w/o significant ST-T abnormalities. -Interventions in ER: IVF Problem list/Assessment/Hospital Course: #Acute delirium w/ ongoing dementia #R/o CVA #PMH of Diabetes, HTN, HLD, Hx of CVA, - Admit to Telemetry, vitals per protocol - Novolin R/AccuChek, keep NPO for now as patient passed the bedside swallow eval however having difficulty carrying out complex actions like eating. - Continuous IVF hydration - pending neurology consult, and may need MRI on coming thursday. - PT/OT eval if needed. DVT prophylaxis Chem PPX + ALPS NPO Full Code As Ranked By This Provider Problem List: 1. Dementia 2. Acute delirium Core Measures/Misc (11/02) Acute Coronary Syndrome ACS Diagnosis: No Congestive Heart Failure Congestive Heart Failure Diagnosis No Cerebrovascular Accident CVA/TIA Diagnosis: No (Pending r/o CVA) NIH Stroke Scale: Total 0 Date Last Known Well: 07/11/17 Time Last Known Well: 1999 Symptom Start Date: 07/11/17 Symptom Start Time: 2004 Swallow Evaluation Pass Current/Past Hx AFib/AFlutter No VTE (View Protocol) VTE Risk Factors Age>40 No Mechanical VTE Prophylaxis d/t N/A MechProphylax Ordered No VTE Pharm Prophylaxis d/t NA PharmProphylax ordered Sepsis (View protocol) Sepsis Present: No If YES complete Sepsis Event Note If YES complete Sepsis Event Note Sapna Guthrie 07/12/17 0043: Core Measures/Misc (11/02) Sepsis (View protocol) If YES complete Sepsis Event Note If YES complete Sepsis Event Note Resident Review Statement Resident Statement: examined this patient, discussed with copywriting intern Other Findings: Ms Abraham is a 71 year old woman w/ a PMHx of CAD (cardiac cath 2010 showing 60% stenosis of the LAD, no PCI/ CABG) , HTN, CVA in 2009 ( left thalamic infarct), T2DM ( non-compliant with her meds), CKD, Depression was brought to the hospital with a chief concern of altered mental status that started the evening of the admission. She had multiple hospital admissions in the recent past for uncontrolled diabetes leading to HHS, likely from medication noncompliance. She was known to be in her usual state of health, until the evening of admission. She has been more delirious in the recent past, but was found to be increasingly confused and was unable to carry out any commands. She did not have any other symptoms at that time- no other neurological symptoms such as headache , facial droop, weakness of upper or lower extremities, paresthesias, difficulty swallowing, loss of bladder or bowel function, loss of vision, loss of consciousness. Reported short-term and long-term memory loss. No tremors, vertigo, dizziness, but had trouble walking due to imbalance issues. She did not have any neck pain, any s/o infection- cough, dysuria. No acute changes in bowel function, no nausea vomiting or diarrhea. No pedal edema. No chest pain, palpitations, or shortness of breath. Vitals at the time of admission to medicine and 6.4, pulse rate 100, respiration 18, blood pressure 194/101, 96% on room air. General Exam: AAOx1, No acute distress, Skin: No rashes, no breakdown; HEENT: PERRLA, EOMI;Neck: Supple, No JVD ; No cervical lymphadenopathy;CVS: Reg Rate, Normal S1,S2, No MGR;Resp: Normal air entry, no ronchi/rales;Abdomen: Soft, No tenderness, Normal Bowel Sounds;Neuro: Normal Speech, Strength 5/5 b/l x 4 extremities, Sensation intact, CN III-XII NL, Reflexes 2+, sensory exam was limited, cerebellar test was incomplete since she couldnt follow commands well; Extremities: No cyanosis, no pedal edema Pertinent lab findings- WBC 8.3, hemoglobin 12.7, platelets 203. Sodium 137, potassium 4.3, BUN 27, creatinine 1.7, glucose 249. Lactic acid 2.0. Calcium 9.4, troponin I 0.01. AST 14, ALT 26, alkaline phosphatase 70. Total bilirubin 1.0. Urinalysis revealed urine protein 30, ketones 15. Urine hemoglobin small, urine glucose > 1000. Chest x-ray- No acute pulmonary findings. CT head-No acute intracranial pathology.Chronic ischemic changes of the small vessel disease. Atherosclerosis. Etiology that could be causing her symptoms are likely multifactorial, with worsening dementia leading to acute delirium is most possible. She also had several episodes of CVA, that could have worsened her condition. History of uncontrolled diabetes, elevated blood glucose up to 250, while renal losses of glucose greater than 1000, elevated ketones, makes me think that she likely has a competent of dehydration from hyperglycemia. Given her symptoms of changes in mentation, cerebrovascular accident needs to be ruled out with an MRI. In regards to her elevated blood pressure, which came down without any intervention. Problem list: #1 metabolic encephalopathy #2 rule out CVA #3 type 2 diabetes #4 acute delirium #5 hypertensive urgency Plan: She should be admitted to telemetry service, given her symptoms of altered mental status , previous history of cerebrovascular accidents, and hypertensive urgency. #1 metabolic encephalopathy-likely due to hyperglycemia, dehydration leading to worsening mentation. She should be given fluids, and treated with appropriate blood glucose lowering medications. She needs to be ruled out for CVA, with an MRI, pending neurology evaluation. If the neurologist does not feel that she might benefit from an MRI scanning, and has no episodes of arrythmia, she should be transferred to general medicine service. Swallow evaluation. She should be given aspirin 325 mg 1, atorvastatin 80 mg 1 and continued on Plavix and statin at daily doses. #2 type 2 diabetes-she should be continued on insulin sliding scale, nothing by mouth coverage with Regular Insulin at this time pending swallow evaluation. #3 delirium/dementia-she should be oriented at regular intervals. Avoid any delirium triggering agents. Senna/Colace, and melatonin at night. Housekeeping checklist: #1 DVT prophylaxis-subcutaneous heparin. #2 GI prophylaxis-Protonix when necessary #3 CODE STATUS-full code #4 medication reconciliation-completed. #5 consults-neurology. Joaquin MOSLEY, [facility] 07/12/17 0622: Core Measures/Misc (11/02) Sepsis (View protocol) If YES complete Sepsis Event Note If YES complete Sepsis Event Note Attending MD Review Statement Attending Statement Attending MD Statement: examined this patient, discuss w/resident/PA/PHOTO OFFSET PRINTER, agreed w/resident/PA/PHOTO OFFSET PRINTER, discussed with family, reviewed images, amended to note Attending Assessment/Plan: 71 yo F with h/o CAD, HTN, T2DM, left thalamic lacunar stroke (2009), TIA, HLD, dementia, who has most recently been admitted for confusion/ encephalopathy due to hyperglycemia and HHS due to noncompliance, is brought in today for increasing confusion. Daughter reports that patient was living with her , until about a week ago when they started living with her. They lost their house due to the fact that patient never paid any bills or possibly did not remember to pay them due to underlying dementia. She also has behavioural disturbances with agitation and yelling. These became more prominent since patient started living with daughter. Patient has had no complaints, has a good appetite and is compliant with her medications. Today daughter noticed that patient was not comprehending her questions and was confused. She had no facial droop, slurring of speech or hemiparesis. Vitals stable. Patient is oriented only to place, but not person or time. Horizontal nystagmus+. She is able to follow simple commands. Neuro exam is nonfocal, was able to do the finger nose testing for the most part but tends to find it difficult to comprehend two step commands. Romberg's negative, gait imbalance+. Labs: CBC normal. BUN 27, Creat 1.7 (baseline 1.3-1.4), glucose 249, lactic acid 2.0, LFTs normal, trop neg. UA proteinuria, ketones+, glucosuria+. Acetone negative. CT head: no acute disease. CXR: no acute findings. EKG: sinus tachycardia, LAFB, Qtc 466. Echo (2013): EF 55-60%, mild pulmonary hypertension, mild concentric hypertrophy. Assessment and plan: 1. Confusion/ encephalopathy etiology possible acute delirium with underlying dementia with behavioral disturbances. However cannot rule out a stroke. No source of infection (CXR/ UA negative). 2. Dehydration, VERÓNICA on CKD stage 3 3. Hyperglycemia, T2DM not in HHS or DKA 4. Essential hypertension - Admit to Telemetry - Neurochecks Q4 - NPO, swallow eval - IV hydration, trend renal functions - Check urine lytes - Accucheks, diabetes management - Neuro consult - Possible MRI to rule out stroke - Add aspirin to plavix - Check lipid panel, TSH, free T4, A1c - Recent carotid dopplers (Mar 2017): minimal nonhemodynamically significant stenosis both ICA. - Obtain Echo and rule out ACS - [facility] psych consult - Avoid delirium triggers - PT eval DVT ppx Hep SC. Full code.
--- NOTE | 2017-07-12 06:23 | Admission Certification ---
Admission Certification Certification Statement - As attending physician, I certify that at the time of - admission, based on clinical presentation, severity of - symptoms, need for further diagnostic testing and - therapeutic interventions, and risk of adverse outcomes - without in-hospital treatment, in my clinical assessment, - this patient requires an acute hospital stay for a minimum - of two nights or longer. I have also considered psychsocial - factors such as support system, advanced age, financial - issues, cognitive issues, and failed out-patient treatments, - past re-admission history, safety of patient, and lack of - compliance as applicable. Specific rationale supporting this admission is: Acute confusion, possible delirium with underlying dementia, cannot rule out stroke.
[2017-07-12 07:42] LABS: ABSOLUTE BASOPHIL COUNT 0 /CUMM (0.0-0.2); ABSOLUTE EOSINOPHIL COUNT 0.1 /CUMM (0.0-0.7); ABSOLUTE GRANULOCYTE CT 6.5 /CUMM (1.4-6.5); ABSOLUTE LYMPH COUNT 2.6 /CUMM (1.2-3.4); ABSOLUTE MONOCYTE COUNT 0.6 /CUMM (0.10-0.60); BASOPHIL % 0.5 % (0.0-2.0); EOSINOPHIL % 0.8 % (0-5); GRANULOCYTE % 66.5 % (42.2-75.2); HEMATOCRIT 35.2 % (37-47); MEAN CORPUSCULAR HGB 28.3 PG (27.0-31.0); MEAN CORPUSCULAR HGB CONC 33.7 G/DL (33.0-37.0); MEAN CORPUSCULAR VOLUME 83.8 FL (81.0-99.0); MEAN PLATELET VOLUME 11.5 FL (7.4-10.4); PLATELET COUNT 178 /CUMM (130-400); RBC DISTRIBUTION WIDTH 13.8 % (11.5-14.5); WHITE BLOOD CELL COUNT 9.7 /CUMM (4.8-10.8)
[2017-07-12 11:58] VITALS: BP 128/70
--- NOTE | 2017-07-12 12:16 | PN- Att Addend ---
Attending Addendum Attending Brief Note Patient seen and examined. Plan of care discussed with the medical team and the patient. Available lab work and radiology test reports were reviewed. Patient' s family is at bedside. reports the patient is close to her baseline and less confused today. Patient is awake alert and oriented. He denies any headache or lateralizing neurological signs. Exam: General: Patient awake alert oriented without any distress CVS: S1 plus S2 without any murmur or gallops Chest: Few scattered crepitation without any wheeze. There is no respiratory distress. Abdomen: Soft non-tender, bowel sound present, no guarding or rebound MARINE SUPERINTENDENT: Awake alert oriented without any focal neuro deficit and follows commands appropriately; tongue is central and face is symmetrical and no current no deficits are noted. Motor system symmetrical. Extremities: No edema; no clubbing or cyanosis noted Assessment and problem list * Acute delirium, no clear etiology found except for dehydration and acute renal failure; patient does not exhibit any features of this new stroke * History diabetes with hyperglycemia * His hypertension * Prior history of CVA * His hyperlipidemia * History of dementia * Hypertensive urgency- BP much improved Plan * Okay to feed patient and his oral intake is adequate can discontinue IV fluids ; encourage oral liquids * Repeat creatinine tomorrow * Out of bed and ambulate with assist * Await neurology consult * Note the patient had ultrasound carotid in March this year and should not be repeated Current Medications Sig/Huy Start time Last Medication Dose Route Stop Time Status Admin Acetaminophen 650 MG Q6P PRN 07/12 0145 AC PO Aspirin 0 .STK-MED ONE 07/12 0207 DC PO Aspirin 325 MG ONCE ONE 07/12 0145 DC 07/12 PO 07/12 0146 0215 Atorvastatin Calcium 80 MG 1700 07/12 1700 AC PO Atorvastatin Calcium 80 MG ONCE ONE 07/12 0245 DC 07/12 PO 07/12 0246 0644 Clopidogrel Bisulfate 75 MG DAILY 07/12 0900 CAN PO Clopidogrel Bisulfate 75 MG DAILY 07/12 09 AC PO Docusate Sodium 100 MG DAILY NEEDED PRN 07/12 0145 AC PO Heparin Sodium 0 .STK-MED ONE 07/12 0654 DC (Porcine) .ROUTE Heparin Sodium 5,000 UNIT Q8 07/12 06 AC 07/12 (Porcine) SC 0649 Insulin Detemir 8 UNITS BID 07/12 09 AC SC Insulin Human Regular 0 Q6 07/12 0600 AC 07/12 SC 0649 Nystatin 1 DYLAN TID 07/12 1400 AC TOP Ramelteon 8 MG AT BEDTIME NEED.. 07/12 0145 AC PO Sodium Chloride 1,000 ML Q13H 07/12 0145 AC 07/12 IV 07/12 1444 0202 Sodium Chloride 1,000 ML .Q20H 07/12 0100 DC IV 07/12 2058 Laboratory Tests 07/12/17 0638: Anion Gap 9, Estimated GFR 37 L, BUN/Creatinine Ratio 17.9, Troponin I < 0.01, Triglycerides 198 H, Cholesterol 159, LDL Cholesterol, Calc 73, HDL Cholesterol 47, Cholesterol/HDL Ratio 3, CBC w Diff NO MAN DIFF REQ, RBC 4.20, MCV 83.8, MCH 28.3, MCHC 33.7, RDW 13.8, MPV 11.5 H, Gran % 66.5, Lymphocytes % 26.2, Monocytes % 6.0, Eosinophils % 0.8, Basophils % 0.5, Absolute Granulocytes 6.5, Absolute Lymphocytes 2.6, Absolute Monocytes 0.6, Absolute Eosinophils 0.1, Absolute Basophils 0 07/12/17 0119: Lactic Acid 1.5 07/11/172207: Urinalysis LIGHT H, Urine Color YEL, Urine Clarity HAZY H, Urine pH 6.0, Ur Specific [place] 1.025, Urine Protein 30 H, Urine Ketones 15 H, Urine Nitrite NEG, Urine Bilirubin NEG, Urine Urobilinogen 0.2, Ur Leukocyte Esterase NEG, Ur Microscopic SEDIMENT EXAMINED, Urine RBC 1-3, Urine WBC 1-3 H, Ur Epithelial Cells MANY H, Urine Bacteria FEW H, Urine Hemoglobin SMALL H, Urine Glucose > =1000 H 07/11/172207: Anion Gap 16, Estimated GFR 30 L, BUN/Creatinine Ratio 15.9, Glucose 249 H, Lactic Acid 2.0, Calcium 9.4, Total Bilirubin 1.0, AST 14, ALT 26, Alkaline Phosphatase 70, Troponin I < 0.01, Total Protein 7.3, Albumin 4.1, Globulin 3.2, Albumin/Globulin Ratio 1.3, CBC w Diff NO MAN DIFF REQ, RBC 4.53, MCV 84.3, MCH 28.0, MCHC 33.3, RDW 13.9, MPV 10.9 H, Gran % 70.9, Lymphocytes % 22.9, Monocytes % 4.0, Eosinophils % 1.5, Basophils % 0.7, Absolute Granulocytes 5.8, Absolute Lymphocytes 1.9, Absolute Monocytes 0.3, Absolute Eosinophils 0.1, Absolute Basophils 0.1, Acetone Level NEGATIVE, Ur Random Creatinine 145.3, Ur Random Sodium 91 H, Ur Random Potassium 56.8, Fraction Sodium Excret 0.8 Microbiology 07/11 2234 BLOOD: Blood Culture - RES 07/12 2207 URINE ROUT: Urine Culture - RES 07/12 2207 BLOOD: Blood Culture - RES Vital Signs Date Time Temp Pulse Resp B/P B/P Pulse O2 O2 Flow FiO2 Mean Ox Delivery Rate 07/12 1158 98.2 76 18 128/70 97 Room Air 07/12 1028 98.6 79 18 136/72 92 07/12 0644 98.7 86 20 120/62 92 Room Air 07/12 0045 97.8 88 18 148/64 96 Room Air 07/11 2245 156/80 07/11 2121 96.4 100 18 194/101 96 Room Air Intake & Output 07/12 1600 07/12 0800 07/12 0000 Intake Total 300 Output Total 400 200 Balance -100 -200 Intake, IV 300 Output, Urine 400 200 Patient 200 lb Weight Weight Estimated Measurement Method
[2017-07-12 15:12] VITALS: BP 132/74
--- NOTE | 2017-07-12 15:40 | Cons- Neurology ---
General Information and HPI Consulting Request Date of Consult: 07/12/17 Requested By: Joaquin MOSLEY,Anastasia Reason for Consult: confusion Source of Information: patient Exam Limitations: confusion, poor historian History of Present Illness: 71yo F w/ PMH of Diabetes, HTN, HLD, Hx of CVA, brought to ER by daughter regarding sudden onset of AMS. Patient and her recently moved to her daughter's place after lost her dwelling due to not paying the bills for a long time per patient's daughter. Patient was previously seen in [place] for uncontrolled diabetes, with metabolic encephalopathy/dementia, and over the past year, despite patient's been depositing money in their bank account, patient had forgotten to pay the bills although she thought she did. After moving to the daughter's place, the daughter endorsed that patient had daily episodes of odd behavior including screaming/non-conversational/ forgetfulness of recent and remote events/walking around without talking to family members. The night of admission after the daughter came back from work, to find the patient altered mental status, not comprehensive to questions/commands, appeared to be confused. During the ER, patient was NIH stroke scale negative, and AAO 1. Allergies/Medications Allergies: Coded Allergies: cat dander (DYSPNEA 11/12/16) crab (HIVES 10/24/16) Home Med List: Atorvastatin Calcium (Lipitor) 40 MG TABLET 1 TAB PO DAILY HLD (Reported) Cholecalciferol (Vitamin D3) 1,000 UNIT TABLET 1 TAB PO DAILY Low vit D Clopidogrel Bisulfate (Clopidogrel) 75 MG TABLET 1 TAB PO DAILY BLOOD THINNER (Reported) Cyanocobalamin (Vitamin B-12) 1,000 MCG TABLET 1 TAB PO DAILY Health Insulin Detemir (Levemir Flextouch) 100 UNIT/ML (3 ML) INSULN.PEN 10 UNITS SC BID DM Metformin HCl 500 MG TABLET 1 TAB PO BID DM Current Medications: Current Medications Sig/Huy Start time Last Medication Dose Route Stop Time Status Admin Acetaminophen 650 MG Q6P PRN 07/12 0145 AC PO Aspirin 0 .STK-MED ONE 07/12 0207 DC PO Aspirin 325 MG ONCE ONE 07/12 0145 DC 07/12 PO 07/12 0146 0215 Atorvastatin Calcium 80 MG 1700 07/12 1700 AC PO Atorvastatin Calcium 80 MG ONCE ONE 07/12 0245 DC 07/12 PO 07/12 0246 0644 Clopidogrel Bisulfate 75 MG DAILY 07/12 09 CAN PO Clopidogrel Bisulfate 75 MG DAILY 07/12 09 AC PO Docusate Sodium 100 MG DAILY NEEDED PRN 07/12 0145 AC PO Heparin Sodium 0 .STK-MED ONE 07/12 0654 DC (Porcine) .ROUTE Heparin Sodium 5,000 UNIT Q8 07/12 0600 AC 07/12 (Porcine) SC 1508 Insulin Detemir 8 UNITS BID 07/12 0900 AC SC Insulin Human Regular 0 Q6 07/12 0600 AC 07/12 SC 0649 Nystatin 1 DYLAN TID 07/12 1400 AC 07/12 TOP 1508 Ramelteon 8 MG AT BEDTIME NEED.. 07/12 0145 AC PO Sodium Chloride 1,000 ML Q13H 07/12 0145 DC 07/12 IV 07/12 1444 0202 Sodium Chloride 1,000 ML .Q20H 07/12 0100 DC IV 07/12 2059 Review of Systems Review of Systems: As per HPI. Otherwise negative. Past History Travel History Traveled to [place] past 21 day No Medical History Neurological: CVA EENT: NONE Cardiovascular: hypertension, hyperlipidemia Respiratory: NONE Gastrointestinal: Crohn's disease Hepatic: NONE Renal: NONE Musculoskeletal: NONE Psychiatric: depression Endocrine: diabetes Blood Disorders: NONE Cancer(s): NONE CMA OR LPN/Reproductive: NONE Surgical History Surgical History: hysterectomy Family History Relations & Conditions If Any: SISTER FHx: diabetes mellitus BROTHER FH: heart disease Relation not specified for: Adopted Psychosocial History Services at Home: None Smoking Status: Unknown If Ever Smoked ETOH Use: denies use Illicit Drug Use: denies illicit drug use Functional Ability ADLs Independent: dressing, eating, toileting, bathing. Ambulation: independent IADLs Unknown: shopping, housework, finances, food prep, telephone, transportation, medication admin. Exam & Diagnostic Data Vital Signs and I&O Vital Signs Date Time Temp Pulse Resp B/P B/P Pulse O2 O2 Flow FiO2 Mean Ox Delivery Rate 07/12 1512 97.7 77 18 132/74 98 Room Air 07/12 1158 98.2 76 18 128/70 97 Room Air 07/12 1028 98.6 79 18 136/72 92 07/12 0644 98.7 86 20 120/62 92 Room Air 07/12 0045 97.8 88 18 148/64 96 Room Air 07/11 2245 156/80 07/11 2121 96.4 100 18 194/101 96 Room Air Intake & Output 07/12 1600 07/12 0800 07/12 0000 Intake Total 0 300 Output Total 400 200 Balance 0 -100 -200 Intake, IV 300 Intake, Oral 0 Output, Urine 400 200 Patient 200 lb Weight Weight Estimated Measurement Method Physical Exam: Alert and oriented x 3, though with slow mentation and processing speeds. Cannot perform executive functions such as spelling backwards or math. Poor attention and concentration. Follows simple commands and is fluent. EOMI, CORINNA and face symmetric. Strength intact throughout. No sensory deficits. Normal reflexes. FNF normal. Gait deferred. Last 48 Hours of Lab Results: Laboratory Tests 07/12 07/12 0638 0119 Chemistry Sodium (137 - 145 mmol/L) 135 L Potassium (3.5 - 5.1 mmol/L) 4.0 Chloride (98 - 107 mmol/L) 101 Carbon Dioxide (22 - 30 mmol/L) 25 Anion Gap (5 - 16) 9 BUN (7 - 17 mg/dL) 25 H Creatinine (0.5 - 1.0 mg/dL) 1.4 H Estimated GFR (>60 ml/min) 37 L BUN/Creatinine Ratio (7 - 25 %) 17.9 Lactic Acid (0.7 - 2.1 mmol/L) 1.5 Troponin I (< 0.11 ng/ml) < 0.01 Triglycerides (<150 mg/dL) 198 H Cholesterol (<200 MG/DL) 159 LDL Cholesterol, Calc (65 - 129 mg/dL) 73 HDL Cholesterol (40 - 60 mg/dL) 47 Cholesterol/HDL Ratio (0.00 - 4.23 %) 3 Hematology CBC w Diff NO MAN DIFF REQ WBC (4.8 - 10.8 /CUMM) 9.7 RBC (4.20 - 5.40 /CUMM) 4.20 Hgb (12.0 - 16.0 G/DL) 11.9 L Hct (37 - 47 %) 35.2 L MCV (81.0 - 99.0 FL) 83.8 MCH (27.0 - 31.0 PG) 28.3 MCHC (33.0 - 37.0 G/DL) 33.7 RDW (11.5 - 14.5 %) 13.8 Plt Count (130 - 400 /CUMM) 178 MPV (7.4 - 10.4 FL) 11.5 H Gran % (42.2 - 75.2 %) 66.5 Lymphocytes % (20.5 - 51.1 %) 26.2 Monocytes % (1.7 - 9.3 %) 6.0 Eosinophils % (0 - 5 %) 0.8 Basophils % (0.0 - 2.0 %) 0.5 Absolute Granulocytes (1.4 - 6.5 /CUMM) 6.5 Absolute Lymphocytes (1.2 - 3.4 /CUMM) 2.6 Absolute Monocytes (0.10 - 0.60 /CUMM) 0.6 Absolute Eosinophils (0.0 - 0.7 /CUMM) 0.1 Absolute Basophils (0.0 - 0.2 /CUMM) 0 07/11 07/11 2208 2208 Chemistry Sodium (137 - 145 mmol/L) 137 Potassium (3.5 - 5.1 mmol/L) 4.3 Chloride (98 - 107 mmol/L) 99 Carbon Dioxide (22 - 30 mmol/L) 22 Anion Gap (5 - 16) 16 BUN (7 - 17 mg/dL) 27 H Creatinine (0.5 - 1.0 mg/dL) 1.7 H Estimated GFR (>60 ml/min) 30 L BUN/Creatinine Ratio (7 - 25 %) 15.9 Glucose (65 - 99 mg/dL) 249 H Lactic Acid (0.7 - 2.1 mmol/L) 2.0 Calcium (8.4 - 10.2 mg/dL) 9.4 Total Bilirubin (0.2 - 1.3 mg/dL) 1.0 AST (14 - 36 U/L) 14 ALT (9 - 52 U/L) 26 Alkaline Phosphatase (<127 U/L) 70 Troponin I (< 0.11 ng/ml) < 0.01 Total Protein (6.3 - 8.2 g/dL) 7.3 Albumin (3.5 - 5.0 g/dL) 4.1 Globulin (1.9 - 4.2 gm/dL) 3.2 Albumin/Globulin Ratio (1.1 - 2.2 %) 1.3 Hematology CBC w Diff NO MAN DIFF REQ WBC (4.8 - 10.8 /CUMM) 8.3 RBC (4.20 - 5.40 /CUMM) 4.53 Hgb (12.0 - 16.0 G/DL) 12.7 Hct (37 - 47 %) 38.2 MCV (81.0 - 99.0 FL) 84.3 MCH (27.0 - 31.0 PG) 28.0 MCHC (33.0 - 37.0 G/DL) 33.3 RDW (11.5 - 14.5 %) 13.9 Plt Count (130 - 400 /CUMM) 203 MPV (7.4 - 10.4 FL) 10.9 H Gran % (42.2 - 75.2 %) 70.9 Lymphocytes % (20.5 - 51.1 %) 22.9 Monocytes % (1.7 - 9.3 %) 4.0 Eosinophils % (0 - 5 %) 1.5 Basophils % (0.0 - 2.0 %) 0.7 Absolute Granulocytes (1.4 - 6.5 /CUMM) 5.8 Absolute Lymphocytes (1.2 - 3.4 /CUMM) 1.9 Absolute Monocytes (0.10 - 0.60 /CUMM) 0.3 Absolute Eosinophils (0.0 - 0.7 /CUMM) 0.1 Absolute Basophils (0.0 - 0.2 /CUMM) 0.1 Toxicology Acetone Level (NEGATIVE) NEGATIVE Urines Urinalysis LIGHT H Urine Color (YEL,AMB,STR) YEL Urine Clarity (CLEAR) HAZY H Urine pH (5.0 - 8.0) 6.0 Ur Specific [place] (1.001 - 1.035) 1.025 Urine Protein (NEG,<30 MG/DL) 30 H Urine Ketones (NEG) 15 H Urine Nitrite (NEG) NEG Urine Bilirubin (NEG) NEG Urine Urobilinogen (0.1 - 1.0 EU/dl) 0.2 Ur Leukocyte Esterase (NEG) NEG Ur Microscopic SEDIMENT EXAMINED Urine RBC (0 - 5 /HPF) 1-3 Urine WBC (0 - 2 /HPF) 1-3 H Ur Epithelial Cells (NONE,FEW) MANY H Urine Bacteria (NEG/NONE) FEW H Urine Hemoglobin (NEG) SMALL H Ur Random Creatinine (mg/dL) 145.3 Ur Random Sodium (30 - 90 mmol/L) 91 H Ur Random Potassium (mmol/L) 56.8 Fraction Sodium Excret (<1% %) 0.8 Urine Glucose (N MG/DL) >=1000 H Imaging/Other Studies: FINDINGS: There is mild loss of brain volume with associated dilatation of CSF space, similar to prior exam and can be considered within normal range for patient's age. There are patchy bilateral periventricular and deep white matter hypodensities, nonspecific findings and could represent chronic ischemic changes of the small vessel disease. There is an old lacunar infarct in the left basal ganglia, similar to the prior exam. Atherosclerotic calcifications of the cavernous parts of bilateral internal carotid arteries are noted. There is no evidence of acute intracranial hemorrhage or territorial infarction. No abnormal mass effect or midline shift is seen. Perez to white matter differentiation is well preserved. No extra-axial fluid collections are identified. The ventricles are normal in size. The osseous structures and soft tissues are normal. The mastoid air cells and visualized portions of the paranasal sinuses are well aerated. Prior bilateral cataract surgeries. IMPRESSION: No acute intracranial pathology. Assessment/Plan Assessment: 71 year old woman with a presentation suggestive of an early dementia. Now likely with a superimposed mild encephalopathy. Recommendations: 1. Repeat UA. 2. Look for sources of infection. 3. Would hole Ramelteon as could worsen cognition. 4. EEG if still here on Thursday but should not hold discharge back. 5. Reduce lipitor to 20mg as may be affecting cognition. 6. Consider starting Aricept 5mg PO daily which could be increased in one month. [facility] Consult Acknowledgment - Thank you for your consult request.
[2017-07-12 22:24] VITALS: BP 136/72
[2017-07-13 06:49] VITALS: BP 124/60
--- NOTE | 2017-07-13 11:18 | PN- Att Addend ---
Attending Addendum Attending Brief Note Patient seen and examined. Plan of care discussed with the medical team and the patient. Available lab work and radiology test reports were reviewed. Patient awake alert and oriented and eating her breakfast this morning. She has a sitter at bedside. As per nursing staff patient has been somewhat impulsive. Patient does not appear to be confused this morning. Patient is awake alert and oriented. sHe denies any headache or lateralizing neurological signs. Exam: General: Patient awake alert oriented without any distress CVS: S1 plus S2 without any murmur or gallops Chest: Few scattered crepitation without any wheeze. There is no respiratory distress. Abdomen: Soft non-tender, bowel sound present, no guarding or rebound CLINIC OFFICE COORDINATOR: Awake alert oriented without any focal neuro deficit and follows commands appropriately; tongue is central and face is symmetrical and no current no deficits are noted. Motor system symmetrical. Extremities: No edema; no clubbing or cyanosis noted Assessment and problem list * Acute delirium, gradually improving, no clear etiology found except for dehydration and acute renal failure; patient does not exhibit any features of this new stroke * History diabetes with hyperglycemia * His hypertension * Prior history of CVA * His hyperlipidemia * History of dementia * Hypertensive urgency- BP much improved Plan * Out of bed and ambulate with assist * Frequent reorientation and family involvement * Note the patient had ultrasound carotid in March this year and should not be repeated Current Medications Sig/Huy Start time Last Medication Dose Route Stop Time Status Admin Acetaminophen 650 MG Q6P PRN 07/12 0145 AC PO Atorvastatin Calcium 20 MG 1700 07/13 1700 AC PO Atorvastatin Calcium 80 MG 1700 07/12 1700 DC 07/12 PO 1630 Clopidogrel Bisulfate 75 MG DAILY 07/12 0900 AC 07/13 PO 0926 Docusate Sodium 100 MG DAILY NEEDED PRN 07/12 0145 AC PO Donepezil HCl 5 MG DAILY 07/12 1717 AC 07/13 PO 0926 Heparin Sodium 5,000 UNIT Q8 07/12 0600 AC 07/13 (Porcine) SC 0558 Insulin Aspart 0 TIDAC 07/12 1700 AC SC Insulin Detemir 8 UNITS BID 07/12 0900 AC 07/13 SC 0926 Insulin Human Regular 0 Q6 07/12 0600 DC 07/12 SC 0649 Magnesium Sulfate 1 GM Q2H 07/13 1000 AC Dextrose/Water 100 ML IV 07/13 1359 Nystatin 1 DYLAN TID 07/12 1400 AC 07/13 TOP 0927 Ramelteon 8 MG AT BEDTIME NEED.. 07/12 0145 DC PO Sodium Chloride 1,000 ML Q13H 07/12 0145 DC 07/12 IV 07/12 1444 0202 Laboratory Tests 07/13/17 0725: Anion Gap 11, Estimated GFR 40 L, BUN/Creatinine Ratio 14.6, Magnesium 1.2 L 07/12/17 223: Urinalysis LIGHT H, Urine Color YEL, Urine Clarity CLEAR, Urine pH 6.0, Ur Specific [place] 1.020, Urine Protein 30 H, Urine Ketones 15 H, Urine Nitrite NEG, Urine Bilirubin NEG, Urine Urobilinogen 0.2, Ur Leukocyte Esterase NEG, Ur Microscopic SEDIMENT EXAMINED, Ur Epithelial Cells RARE, Urine Hemoglobin MOD H , Urine Glucose >=1000 H 07/12/17 0638: Anion Gap 9, Estimated GFR 37 L, BUN/Creatinine Ratio 17.9, Troponin I < 0.01, Triglycerides 198 H, Cholesterol 159, LDL Cholesterol, Calc 73, HDL Cholesterol 47, Cholesterol/HDL Ratio 3, CBC w Diff NO MAN DIFF REQ, RBC 4.20, MCV 83.8, MCH 28.3, MCHC 33.7, RDW 13.8, MPV 11.5 H, Gran % 66.5, Lymphocytes % 26.2, Monocytes % 6.0, Eosinophils % 0.8, Basophils % 0.5, Absolute Granulocytes 6.5, Absolute Lymphocytes 2.6, Absolute Monocytes 0.6, Absolute Eosinophils 0.1, Absolute Basophils 0 07/12/17 0119: Lactic Acid 1.5 07/11/172207: Urinalysis LIGHT H, Urine Color YEL, Urine Clarity HAZY H, Urine pH 6.0, Ur Specific [place] 1.025, Urine Protein 30 H, Urine Ketones 15 H, Urine Nitrite NEG, Urine Bilirubin NEG, Urine Urobilinogen 0.2, Ur Leukocyte Esterase NEG, Ur Microscopic SEDIMENT EXAMINED, Urine RBC 1-3, Urine WBC 1-3 H, Ur Epithelial Cells MANY H, Urine Bacteria FEW H, Urine Hemoglobin SMALL H, Urine Glucose > =1000 H 07/11/172207: Anion Gap 16, Estimated GFR 30 L, BUN/Creatinine Ratio 15.9, Glucose 249 H, Lactic Acid 2.0, Calcium 9.4, Total Bilirubin 1.0, AST 14, ALT 26, Alkaline Phosphatase 70, Troponin I < 0.01, Total Protein 7.3, Albumin 4.1, Globulin 3.2, Albumin/Globulin Ratio 1.3, CBC w Diff NO MAN DIFF REQ, RBC 4.53, MCV 84.3, MCH 28.0, MCHC 33.3, RDW 13.9, MPV 10.9 H, Gran % 70.9, Lymphocytes % 22.9, Monocytes % 4.0, Eosinophils % 1.5, Basophils % 0.7, Absolute Granulocytes 5.8, Absolute Lymphocytes 1.9, Absolute Monocytes 0.3, Absolute Eosinophils 0.1, Absolute Basophils 0.1, Acetone Level NEGATIVE, Ur Random Creatinine 145.3, Ur Random Sodium 91 H, Ur Random Potassium 56.8, Fraction Sodium Excret 0.8 Microbiology 07/11 2234 BLOOD: Blood Culture - RES 07/12 2207 URINE ROUT: Urine Culture - COMP 07/12 2207 BLOOD: Blood Culture - RES Vital Signs Date Time Temp Pulse Resp B/P B/P Pulse O2 O2 Flow FiO2 Mean Ox Delivery Rate 07/13 0649 99.0 77 20 124/60 96 Room Air 07/12 2224 99.5 98 20 136/72 96 Room Air 07/12 1512 97.7 77 18 132/74 98 Room Air 07/12 1158 98.2 76 18 128/70 97 Room Air Intake & Output 07/13 1600 07/13 0800 07/13 0000 Intake Total 60 60 Output Total 150 350 Balance -90 -290 Intake, Oral 60 60 Output, Urine 150 350 Patient 175 lb Weight
[2017-07-13 14:15] VITALS: BP 112/56
[2017-07-13 22:51] VITALS: BP 90/66
[2017-07-14 06:00] VITALS: BP 118/70
[2017-07-14 07:50] LABS: ABSOLUTE BASOPHIL COUNT 0 /CUMM (0.0-0.2); ABSOLUTE EOSINOPHIL COUNT 0.2 /CUMM (0.0-0.7); ABSOLUTE GRANULOCYTE CT 5.8 /CUMM (1.4-6.5); ABSOLUTE LYMPH COUNT 2.2 /CUMM (1.2-3.4); ABSOLUTE MONOCYTE COUNT 0.4 /CUMM (0.10-0.60); BASOPHIL % 0.5 % (0.0-2.0); EOSINOPHIL % 1.8 % (0-5); GRANULOCYTE % 67.2 % (42.2-75.2); HEMATOCRIT 33.8 % (37-47); MEAN CORPUSCULAR HGB 28.7 PG (27.0-31.0); MEAN CORPUSCULAR HGB CONC 34.6 G/DL (33.0-37.0); MEAN CORPUSCULAR VOLUME 82.9 FL (81.0-99.0); PLATELET COUNT 165 /CUMM (130-400); RED BLOOD CELL CT 4.08 /CUMM (4.20-5.40); WHITE BLOOD CELL COUNT 8.6 /CUMM (4.8-10.8)
--- NOTE | 2017-07-14 08:27 | PN- Housestaff ---
Joseline MOSLEY,Nick 07/14/17826: Subjective Follow-up For: Acute delirium Tele-Events Since Last Visit: NSR HR: 66-80 Subjective: Patient was seen and examined. Patient denies any complaints today. Patient denies chest pain, palpitations, n/v, abdominal pain, dysuira/hematuria, shortness of breath. Per nursing staff patient has moments of forgetfulness. No acute events overnight. Review of Systems Constitutional: Reports: see HPI. Objective Last 24 Hrs of Vital Signs/I&O Vital Signs Date Time Temp Pulse Resp B/P B/P Pulse O2 O2 Flow FiO2 Mean Ox Delivery Rate 07/14 1423 98.4 84 18 120/64 96 Room Air 07/14 0600 98.7 78 20 118/70 94 07/13 2251 99.1 78 18 90/66 96 Room Air Intake & Output 07/14 1600 07/14 0800 07/14 0000 Intake Total 200 120 200 Output Total Balance 200 120 200 Intake, Oral 200 120 200 Patient 172 lb Weight Weight Bed scale Measurement Method Physical Exam General Appearance: Alert, Cooperative, No Acute Distress HEENT: Atraumatic, Mucous Membr. moist/pink Cardiovascular: Regular Rate, Normal S1, Normal S2 Lungs: Clear to Auscultation, Normal Air Movement Extremities: No Clubbing, No Cyanosis, No Edema, Normal Pulses, No Tenderness/ Swelling Current Medications: Current Medications Sig/Huy Start time Last Medication Dose Route Stop Time Status Admin Acetaminophen 650 MG Q6P PRN 07/12 0145 AC PO Atorvastatin Calcium 20 MG 1700 07/13 1700 AC 07/14 PO 1721 Clopidogrel Bisulfate 75 MG DAILY 07/12 0900 07/14 PO 0747 Docusate Sodium 100 MG .STK-MED ONE 07/13 2056 DC PO 07/13 2057 Docusate Sodium 100 MG DAILY NEEDED PRN 07/12 0145 AC 07/13 PO 2058 Donepezil HCl 5 MG DAILY 07/12 1717 AC 07/14 PO 0747 Heparin Sodium 5,000 UNIT Q8 07/12 0600 AC 07/14 (Porcine) SC 1423 Insulin Aspart 0 TIDAC 07/12 1700 AC 07/14 SC 1721 Insulin Detemir 8 UNITS BID 07/12 0900 AC 07/14 SC 0748 Nystatin 1 DYLAN TID 07/12 1400 AC 07/14 TOP 1423 Last 24 Hrs of Lab/[place] Results Last 24 Hrs of Labs/Mics: Laboratory Tests 07/14/17 0645: Anion Gap 13, Estimated GFR 40 L, BUN/Creatinine Ratio 14.6, CBC w Diff NO MAN DIFF REQ, RBC 4.08 L, MCV 82.9, MCH 28.7, MCHC 34.6, RDW 14.0, MPV 11.0 H, Gran % 67.2, Lymphocytes % 25.8, Monocytes % 4.7, Eosinophils % 1.8, Basophils % 0.5, Absolute Granulocytes 5.8, Absolute Lymphocytes 2.2, Absolute Monocytes 0.4 , Absolute Eosinophils 0.2, Absolute Basophils 0 Assessment/Plan Assessment: 71yo F w/ PMH of Diabetes, HTN, HLD, Hx of CVA, brought to ER by daughter regarding sudden onset of AMS Patient was admitted to the telemetry floor for management of the following: Problem list: 1. Acute delirium - appears to have improved. Possibly metabolic encephalopathy secondary to hyperglycemia. There may be a early dementia per neurology patient was placed on aricept. EEG was done today. Patient to follow up with neurology outpatient for the results. 2. Hypertensive Urgency - BP has improved 3. Chronic conditions: hypertension, h/o CVA, HLD, DM, Plan: - admitted to telemetry - continue statin, plavix - continue levemir 8 units BID - novlog sliding scale and accuchecks TIDAC/qHS - continue aricept 5mg daily - will discharge home today, to continue home medications and will also send on aricept 5mg daily. Patient to follow up with neurology outpatient for further management and results of EEG DVT PPx: Heparin SQ Diet: consistent carb 1 Code: full code Problem List: 1. Acute delirium 2. Dementia Pain Ratin Pain Location: n/a Pain Goal: Remain pain free Pain Plan: n/a Tomorrow's Labs & Rationales: none - discharge today Carlie Ramirez MD 07/14/17 1136: Attending MD Review Statement Attending Statement Attending MD Statement: examined this patient, discuss w/resident/PA/CASTING MACHINE OPERATOR HELPER, agreed w/resident/PA/CASTING MACHINE OPERATOR HELPER, reviewed EMR data (avail) Attending Assessment/Plan: Patient doing well today, no complaints, no telemetry or overnight events. Awaiting EEG, after which will likely be discharged home with outpatient follow up, continuing all medications.
[2017-07-14] MEDS ORDERED: ARICEPT5 M1 PO ×2 (11:53→16:28)
--- NOTE | 2017-07-14 12:16 | Patient Discharge Instructions ---
Discharge Instructions General Discharge Information You were seen/treated for: Confusion You had these procedures: EEG ECHO Diet Continue normal diet: No Recommended Diet: Diabetic Activity Full Activity/No Limits: No Activity Self Limited: Yes Acute Coronary Syndrome Inclusion Criteria At DC or during hospital stay patient has or had the following: ACS DIAGNOSIS No Discharge Core Measures Meds if any: Prescribed or Continued at Discharge Meds if any: NOT Prescribed or Continued at Discharge Congestive Heart Failure Inclusion Criteria At DC or during hospital stay patient has or had the following: CHF DIAGNOSIS No Discharge Core Measures Meds if any: Prescribed or Continued at Discharge Meds if any: NOT Prescribed or Continued at Discharge Cerebrovascular accident Inclusion Criteria At DC or during hospital stay patient has or had the following: CVA/TIA Diagnosis No Discharge Core Measures Meds if any: Prescribed or Continued at Discharge Meds if any: NOT Prescribed or Continued at Discharge Venous thromboembolism Inclusion Criteria VTE Diagnosis No Discharge Core Measures - Per Current guidelines, there needs to be overlap - treatment for the first 5 days of Warfarin therapy. - If discharged on Warfarin prior to 5 days of - overlap therapy, the patient will need to be - assessed for post discharge needs including - *Post discharge parental anticoagulation - *Warfarin and/or parental anticoagulation education - *Follow up date to check INR post discharge Meds if any: Prescribed or Continued at Discharge Note: Overlap Therapy is Warfarin and Anticoagulant Meds if any: NOT Prescribed or Continued at Discharge
[2017-07-14 14:23] VITALS: BP 120/64
--- NOTE | 2017-07-14 21:58 | Discharge Summary ---
Visit Information Visit Dates Admission Date: 07/11/17 Discharge Date: 07/14/17 Hospital Course Course Attending Physician: Calrie Ramirez MD Primary Care Physician: Lyudmila Butts Allergies: Coded Allergies: cat dander (DYSPNEA 11/12/16) crab (HIVES 10/24/16) Discharge Instructions General Discharge Information Code Status: Full Code Patient's Diet: Consistent Carbohydrate Patient's Activity: Self-Limited Follow-Up Instructions/Appts: Follow up with neurology Follow up with endocrinology Started on aricept Medications at Discharge Discharge Medications: Continue taking these medications: Clopidogrel Bisulfate (Clopidogrel) 75 MG TABLET 1 Tablet ORAL DAILY Qty = 30 Comments: Last Taken: 07/14/17 Time: 8:00 AM Insulin Detemir (Levemir Flextouch) 100 UNIT/ML (3 ML) INSULN.PEN 10 Units Inject into fatty tissue TWICE DAILY Qty = 15 Comments: Last Taken: 07/14/17 Time: 8:00 AM Atorvastatin Calcium (Lipitor) 40 MG TABLET 1 Tablet ORAL DAILY Qty = 30 Comments: Last Taken: 07/14/17 Time: 5:00 PM Metformin HCl (Metformin HCl) 500 MG TABLET 1 Tablet ORAL TWICE DAILY Qty = 30 Comments: NOT GIVEN IN HOSPITAL Cyanocobalamin (Vitamin B-12) 1,000 MCG TABLET 1 Tablet ORAL DAILY Qty = 30 Comments: Last Taken: NOT GIVEN IN THE HOSPITAL Time: Cholecalciferol (Vitamin D3) 1,000 UNIT TABLET 1 Tablet ORAL DAILY Qty = 30 Comments: Last Taken: NOT GIVEN IN THE HOSPITAL Time: Start taking the following new medications: Donepezil HCl (Aricept) 5 MG TABLET 1 Tablet ORAL DAILY Qty = 30 No Refills Instructions: Please take as prescribed. Any further changes to be made by your neurologist. Comments: NOT GIVEN IN THE HOSPITAL Copies To: Yuliana MOSLEY,Eliel; Lyudmila Butts
--- NOTE | 2017-07-15 07:51 | ECHOCARDIOGRAM REPORT ---
JOSE BROWN Age: 71 : 1945 Gender: F Exam Date: 07/14/2017 09:22 Exam Location: [address] Ht (in): 63 Wt (lb): 200 BSA: 2.05 BP: 118 / 70 Ordering Physician: Sapna Guthrie MD Referring Physician: Sapna Guthrie MD Technologist: Elbert Goins [facility] Room Number: 176-01 Indications: CVA Rhythm: Sinus Technical Quality: fair FINDINGS Left Ventricle Normal left ventricular size, wall thickness and systolic function with no obvious regional wall motion abnormalities. Diastolic filling pattern is consistent with impaired LV relaxation. The ejection fraction is visually estimated at 60%. Right Ventricle The right ventricle is normal in size and function. Right Atrium The right atrium is normal in size. Left Atrium The left atrium is normal in size. The interatrial septum is intact. Mitral Valve The mitral valve demonstrates mild annular calcification. There is trace mitral regurgitation. Aortic Valve Structurally normal aortic valve without significant sclerosis or stenosis. There is aortic regurgitation. Tricuspid Valve The tricuspid valve is normal in structure and function. There is no tricuspid regurgitation. Pulmonic Valve Pulmonic valv is not well seen. There is no pulmonic regurgitation. Pericardium Normal pericardium without effusion. No pleural effusion. Great Vessels Normal aortic root dimension. The aortic arch and great vessels are not well seen. CONCLUSIONS 1. Normal EF of 60% with no obvious regional wall motion abnormalities and impaired LV relaxation. 2. Trace mitral regurgitation. Delano Gupta M.D. (Electronically Signed) Final Date: 15 Jul 2017 07:50 MEASUREMENTS (Male / Female) Normal Values 2D ECHO LV Diastolic Diameter PLAX 3.6 cm 4.2 - 5.9 / 3.9 - 5.3 cm LV Systolic Diameter PLAX 2.5 cm 2.1 - 4.0 cm LV Fractional Shortening PLAX 31.7 % 25 - 46 % LV Ejection Fraction 2D Teich 60.6 % IVS Diastolic Thickness 1.2 cm LVPW Diastolic Thickness 1.2 cm LV Relative Wall Thickness 0.7 LVOT Diameter 2.0 cm Aortic Root Diameter 3.1 cm Ascending Aorta Diameter 3.2 cm DOPPLER AV Peak Velocity 136.0 cm/s AV Peak Gradient 7.4 mmHg LVOT Peak Velocity 86.4 cm/s LVOT Peak Gradient 3.0 mmHg AV Area Cont Eq pk 2.0 cm Mitral E Point Velocity 64.7 cm/s Mitral A Point Velocity 95.3 cm/s Mitral E to A Ratio 0.7 MV Deceleration Time 197.0 ms PV Peak Velocity 128.0 cm/s PV Peak Gradient 6.6 mmHg
--- NOTE | 2017-07-15 10:22 | ELECTROENCEPHALOGRAM REPORT ---
Electroencephalogram Report Electroencephalogram Results Date of service: 07/14/17 Attending MD: Carlie Ramirez MD Electrical Laboratory Technician: Ruby Mckeon EEG Number: [id number] Test Utilizes: 10-20 system, 21 lead 18 channel digital recording Pertinent Hx/Physical/Neuro Findings/Clin Diagnosis: altered mental status, encephalopathy and/or dementia Inpatient Medications: Current Medications Sig/Huy Start time Last Medication Dose Route Stop Time Status Admin Acetaminophen 650 MG Q6P PRN 07/12 0145 DCD PO Atorvastatin Calcium 20 MG 1700 07/13 1700 DCD 07/14 PO 1721 Clopidogrel Bisulfate 75 MG DAILY 07/12 0900 DCD 07/14 PO 0747 Docusate Sodium 100 MG DAILY NEEDED PRN 07/12 0145 DCD 07/13 PO 2058 Donepezil HCl 5 MG DAILY 07/12 1717 DCD 07/14 PO 0747 Heparin Sodium 5,000 UNIT Q8 07/12 0600 DCD 07/14 (Porcine) SC 1423 Insulin Aspart 0 TIDAC 07/12 1700 DCD 07/14 SC 1721 Insulin Detemir 8 UNITS BID 07/12 0900 DCD 07/14 SC 0748 Nystatin 1 DYLAN TID 07/12 1400 DCD 07/14 TOP 1423 Interpretation: The background is dominated by low volta irregular alpha and intermixed low voltage theta activity with some frontal beta identified. Portions of the record reflected drowsiness with increased slowing in the theta range. There are no focal, lateralized or epileptiform abnormalities. Hyperventilation was deferred but photic stimulation provides no additional information Impression: abnormal due to mild to moderate generalized slowing, no focal or epileptiform features
== END 2017-07-14 19:00 | disposition home health service (06) | DRG 682 ==
LOC: ERH 21:18 → 1NO 23:29 → ERHI 23:29 → EDBEDREQ 07-12 02:20 → ENRESERV 07-12 09:04 → ENTRNSPT 07-12 10:34 → EDTRNSPTSTS 07-12 10:45 → 1NO 07-12 11:12 → CMPTRNSPT 07-12 11:24 → 1NO 07-14 08:16
PROVIDERS: Emergency Medicine; Internal Medicine; Internal Medicine Endocrinology, Diabetes & Metabolism
DX: N17.9 Acute kidney failure, unspecified (principal); G93.41 Metabolic encephalopathy; E11.65 Type 2 diabetes mellitus with hyperglycemia; E11.22 Type 2 diabetes mellitus with diabetic chronic kidney disease; F05 Delirium due to known physiological condition; F03.91 Unspecified dementia, unspecified severity, with behavioral disturbance; E78.5 Hyperlipidemia, unspecified; E86.0 Dehydration; I12.9 Hypertensive chronic kidney disease with stage 1 through stage 4 chronic kidney disease, or unspecified chronic kidney disease; N18.3 Chronic kidney disease, stage 3 (moderate); I25.10 Atherosclerotic heart disease of native coronary artery without angina pectoris; I16.0 Hypertensive urgency; Z91.14 Patient's other noncompliance with medication regimen; Z91.013 Allergy to seafood; Z79.84 Long term (current) use of oral hypoglycemic drugs; Z91.048 Other nonmedicinal substance allergy status; Z86.73 Personal history of transient ischemic attack (TIA), and cerebral infarction without residual deficits; Z90.710 Acquired absence of both cervix and uterus; Z79.4 Long term (current) use of insulin
CPT/HCPCS: 1NP; 84133; 84300; ERO; 36592; 71045; 81001; 82436; 82570; 87040; 87086; 93005; 93010; 93306; 95816; 97116-GO; 97161-GP; J1644

== ENCOUNTER 2017-07-27 13:07 | Inpatient (IN) | payer OTHER ==
[~2017-07-27] VITALS: Ht 165.1 cm; Wt 83.2 kg
[~2017-07-27 13:07] MED LIST changes: +ARICEPT5 M1 PO
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
--- NOTE | 2017-07-27 15:06 | RADIOLOGY REPORT ---
EXAMINATION: XR CHEST CLINICAL INFORMATION: New onset confusion COMPARISON: Frontal portable view 07/12/17 TECHNIQUE: 2 views of the chest were obtained. FINDINGS: There is kyphosis and rotation toward the right. The cardiac size is within normal limits. There is no mediastinal or hilar mass. The vasculature is normal. No focal parenchymal abnormality. The visualized pleural margins are within normal limits. No focal bone lesion. I suspect some left rib deformities which appear chronic. IMPRESSION: No acute chest disease
[2017-07-27 15:40] LABS: ABSOLUTE BASOPHIL COUNT 0.1 /CUMM (0.0-0.2); ABSOLUTE EOSINOPHIL COUNT 0.1 /CUMM (0.0-0.7); ABSOLUTE GRANULOCYTE CT 7.1 /CUMM (1.4-6.5); ABSOLUTE LYMPH COUNT 1.9 /CUMM (1.2-3.4); ABSOLUTE MONOCYTE COUNT 0.5 /CUMM (0.10-0.60); BASOPHIL % 0.6 % (0.0-2.0); EOSINOPHIL % 0.9 % (0-5); GRANULOCYTE % 74.1 % (42.2-75.2); MEAN CORPUSCULAR HGB 28.1 PG (27.0-31.0); MEAN CORPUSCULAR HGB CONC 33.5 G/DL (33.0-37.0); MEAN CORPUSCULAR VOLUME 83.9 FL (81.0-99.0); MEAN PLATELET VOLUME 10.5 FL (7.4-10.4); PLATELET COUNT 221 /CUMM (130-400); RBC DISTRIBUTION WIDTH 13.9 % (11.5-14.5); RED BLOOD CELL CT 4.77 /CUMM (4.20-5.40); WHITE BLOOD CELL COUNT 9.6 /CUMM (4.8-10.8)
--- NOTE | 2017-07-27 16:14 | CT SCAN REPORT ---
EXAMINATION: CT HEAD WITHOUT CONTRAST CLINICAL INFORMATION: New onset confusion. COMPARISON: Head CT 07/11/2017. TECHNIQUE: Contiguous axial imaging was performed from the skull base to vertex without intravenous administration of contrast. DLP: 616 mGy-cm FINDINGS: There is no evidence of acute intracranial hemorrhage or territorial infarction. No abnormal mass effect or midline shift is seen. Perez to white matter differentiation is well preserved. No extra-axial fluid collections are identified. The ventricles and sulcal spaces are proportionate without hydrocephalus. There is diffuse periventricular white matter hypoattenuation as well as chronic hypoattenuation within the central monico, likely reflecting sequela of ischemic microangiopathy. Suspect chronic tiny left basal ganglia lacunar infarcts. The osseous structures and soft tissues are unremarkable. The mastoid air cells and visualized portions of the paranasal sinuses are well aerated. IMPRESSION: No acute intracranial pathology. Chronic white matter disease which suggests underlying ischemic microangiopathy.
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
[2017-07-27 22:05] VITALS: BP 142/67
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
[2017-07-28 06:20] VITALS: BP 150/82
[2017-07-28 07:44] LABS: ABSOLUTE BASOPHIL COUNT 0.1 /CUMM (0.0-0.2); ABSOLUTE EOSINOPHIL COUNT 0.1 /CUMM (0.0-0.7); ABSOLUTE GRANULOCYTE CT 4.9 /CUMM (1.4-6.5); ABSOLUTE LYMPH COUNT 2.3 /CUMM (1.2-3.4); ABSOLUTE MONOCYTE COUNT 0.4 /CUMM (0.10-0.60); BASOPHIL % 0.7 % (0.0-2.0); EOSINOPHIL % 1.6 % (0-5); GRANULOCYTE % 62.5 % (42.2-75.2); MEAN CORPUSCULAR HGB 28.9 PG (27.0-31.0); MEAN CORPUSCULAR HGB CONC 34.7 G/DL (33.0-37.0); MEAN CORPUSCULAR VOLUME 83.3 FL (81.0-99.0); PLATELET COUNT 184 /CUMM (130-400); RBC DISTRIBUTION WIDTH 14.1 % (11.5-14.5); RED BLOOD CELL CT 4.05 /CUMM (4.20-5.40); WHITE BLOOD CELL COUNT 7.8 /CUMM (4.8-10.8)
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
[2017-07-28 07:56] LABS: HEMATOCRIT 33.8 % (37-47)
[2017-07-28 15:27] VITALS: BP 133/76
[2017-07-28 22:17] VITALS: BP 150/79
[2017-07-29 06:56] VITALS: BP 104/84
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
[2017-07-29 09:09] LABS: ABSOLUTE BASOPHIL COUNT 0.1 /CUMM (0.0-0.2); ABSOLUTE EOSINOPHIL COUNT 0.1 /CUMM (0.0-0.7); ABSOLUTE GRANULOCYTE CT 4.7 /CUMM (1.4-6.5); ABSOLUTE LYMPH COUNT 2.4 /CUMM (1.2-3.4); ABSOLUTE MONOCYTE COUNT 0.4 /CUMM (0.10-0.60); EOSINOPHIL % 1.7 % (0-5); HEMATOCRIT 36.7 % (37-47); MEAN CORPUSCULAR HGB 28.5 PG (27.0-31.0); MEAN CORPUSCULAR HGB CONC 34.2 G/DL (33.0-37.0); MEAN CORPUSCULAR VOLUME 83.1 FL (81.0-99.0); MEAN PLATELET VOLUME 11.2 FL (7.4-10.4); PLATELET COUNT 192 /CUMM (130-400); RBC DISTRIBUTION WIDTH 13.9 % (11.5-14.5); RED BLOOD CELL CT 4.41 /CUMM (4.20-5.40); WHITE BLOOD CELL COUNT 7.7 /CUMM (4.8-10.8)
[2017-07-29 14:33] VITALS: BP 110/76
--- NOTE | 2017-07-29 14:33 | Cons- Psychiatry ---
Psychiatric Consult Date of Consult: 07/27/17 Reason for Consult: 72-year-old female admitted 07/27 with encephalopathy likely due to hyperglycemia. History of insulin-dependent diabetes, CVA, dementia, hypertension and chronic renal insufficiency. In the emergency room the patient 's daughter reported that the patient has pain "screaming and yelling for no reason". Asked to see for evaluation. History of Present Illness: The patient reports that she was admitted following an argument with her daughter. She admits that she was angry with her and may have overreacted. The patient has had few admissions over the past 6-8 weeks. There is a possibility of nonadherence to medication regime at home. According to nursing staff the patient has been calm and appropriate since admission. Today the patient reports feeling "good". She does admit that she has been feeling sad of late. She and her left the home of 30 years 3 weeks ago to move in with her daughter. They share a room with her 52-year-old foster daughter. Also analysis the patient told her, her and their children age 12 and 8. Prior to this the patient lives next door to her son and his grandchildren as well as friends were in and out. The patient misses the social contact. She describes her mood is sad, "not as happy as a used to be". She has lost pleasure in her usual activities. She denies any abnormalities of sleep, appetite or energy. She is not suicidal or homicidal. She is afraid that she is a burden on her family. She is a somewhat unforthcoming historian. There are no psychotic symptoms. Past psychiatric history: Treated for depression approximately 10 years ago. Cannot remember medication. No history of suicide attempts. Substance abuse: Non-smoker, nondrinker. Allergies: Coded Allergies: cat dander (DYSPNEA 11/12/16) crab (HIVES 10/24/16) Past History Past Medical History Neurological: CVA EENT: NONE Cardiovascular: hypertension, hyperlipidemia Respiratory: NONE Gastrointestinal: Crohn's disease Hepatic: NONE Renal: NONE Musculoskeletal: NONE Psychiatric: depression Endocrine: diabetes Blood Disorders: NONE Cancer(s): NONE CRM COORDINATOR/Reproductive: NONE Past Surgical History Surgical History: hysterectomy Assessment/Plan Mental Status Orientation: Person, Place, Situation Affect: Sad Speech: Normal Neuro-vegetative: WNL Mental Status Exam: Mini-Mental score is 30/30 73-year-old female alert and oriented 3. Pleasant and appropriate. Good eye contact. Speech normal in rate, rhythm, volume and tone. Describes her mood as "sad", affect sad and anxious. Not suicidal or homicidal. Thought process normal in tempo, stream and form. No delusions or obsessions. Attention and concentration good. No perceptual abnormality noted. Impulse control good. Recent and remote memory intact. Insight good. Judgment unimpaired. Impression: 1. Major depressive disorder, recurrent, moderate with anxious distress. Start low-dose citalopram 2. Rule out adjustment disorder with depressed mood secondary to moving house 3. Probable mild cognitive impairment. Patient on Aricept. Current MMSE 30/30 4. Current UTI 5. Incomplete adherence to medication. Suggest visiting nurse services/are having daughter participate in medication administration. Provisional Treatment Plan: 1. Citalopram 10 mg po daily 2. Suggest follow-up with geriatric psychiatry 3. Additional visiting nurse service if possible/daughter may be able to help w med administration. Psychiatry will sign off for now. Give this consultation. Please feel free to contact us if we can be of any further assistance.
--- NOTE | 2017-07-29 15:56 | Patient Discharge Instructions ---
Discharge Instructions General Discharge Information You were seen/treated for: Anxiety/Confusion Special Instructions: 1. Continue taking medications as prescribed. 2. Follow up with your pcp within 1 week of discharge. 3. Follow up with the geriatric psychiatrist [facility] [phone] 4. Follow up with your rotary shear worker helper regarding your blood sugars. 5. Check your blood sugars twice a day and keep a written log of your sugars and when you take your insulin Diet Continue normal diet: No Recommended Diet: Diabetic Acute Coronary Syndrome Inclusion Criteria At DC or during hospital stay patient has or had the following: ACS DIAGNOSIS No Discharge Core Measures Meds if any: Prescribed or Continued at Discharge Meds if any: NOT Prescribed or Continued at Discharge Congestive Heart Failure Inclusion Criteria At DC or during hospital stay patient has or had the following: CHF DIAGNOSIS No Discharge Core Measures Meds if any: Prescribed or Continued at Discharge Meds if any: NOT Prescribed or Continued at Discharge Cerebrovascular accident Inclusion Criteria At DC or during hospital stay patient has or had the following: CVA/TIA Diagnosis No Discharge Core Measures Meds if any: Prescribed or Continued at Discharge Meds if any: NOT Prescribed or Continued at Discharge Venous thromboembolism Inclusion Criteria VTE Diagnosis No VTE Type NONE VTE Confirmed by (Test) NONE Discharge Core Measures - Per Current guidelines, there needs to be overlap - treatment for the first 5 days of Warfarin therapy. - If discharged on Warfarin prior to 5 days of - overlap therapy, the patient will need to be - assessed for post discharge needs including - *Post discharge parental anticoagulation - *Warfarin and/or parental anticoagulation education - *Follow up date to check INR post discharge At least 5 days overlap therapy as Inpatient No Meds if any: Prescribed or Continued at Discharge Note: Overlap Therapy is Warfarin and Anticoagulant Meds if any: NOT Prescribed or Continued at Discharge
[2017-07-29] MEDS ORDERED: CITALOPRAM HBR10 MG PO (16:52)
[2017-07-29 22:04] VITALS: BP 120/60
[2017-07-30 06:34] VITALS: BP 122/65
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
[2017-07-30] MEDS ORDERED: FOLIC ACID1 M1 PO (07:33)
[2017-07-30 13:44] VITALS: BP 142/73
[2017-07-30] MEDS ORDERED: CITALOPRAM HBR10 MG PO (14:07)
== END 2017-07-30 14:56 | disposition home health service (06) | DRG 884 ==
LOC: ERH 13:07 → 2NA 16:56 → ERHI 16:56 → ENRESERV 17:41 → CANRESERV 17:41 → ENRESERV 18:13 → CANRESERV 18:13 → EDBEDREQ 19:28 → ENRESERV 19:42 → ENTRNSPT 20:47 → EDTRNSPTSTS 21:05 → 2NA 21:13 → CMPTRNSPT 21:24 → 2NA 07-30 08:00 → ENPENDDIS 07-30 14:14 → ENTRNSPT 07-30 14:33 → EDTRNSPTSTS 07-30 14:51 → EDTRNSPT 07-30 14:51 → 2NA 07-30 14:56 → CMPTRNSPT 07-30 14:57
PROVIDERS: Physician Assistant; Student in an Organized Health Care Education/Training Program
DX: F03.91 Unspecified dementia, unspecified severity, with behavioral disturbance (principal); F05 Delirium due to known physiological condition; K50.90 Crohn's disease, unspecified, without complications; N39.0 Urinary tract infection, site not specified; E11.65 Type 2 diabetes mellitus with hyperglycemia; E11.22 Type 2 diabetes mellitus with diabetic chronic kidney disease; N18.3 Chronic kidney disease, stage 3 (moderate); I10 Essential (primary) hypertension; E78.5 Hyperlipidemia, unspecified; Z86.73 Personal history of transient ischemic attack (TIA), and cerebral infarction without residual deficits; Z79.4 Long term (current) use of insulin; Z91.14 Patient's other noncompliance with medication regimen; K59.00 Constipation, unspecified; F32.9 Major depressive disorder, single episode, unspecified
CPT/HCPCS: 2NASP; 36592; 71046; 81001; 82436; 87086; 93005; 93010; J0696; J1650; J3490; J7040